=== PATIENT | female | born 1940 | race Caucasian/White ===

== ENCOUNTER 2022-06-14 12:30 | Outpatient (RCR) | payer MEDICARE, BC, SELFPAY | END 2022-08-04 08:57 | disposition home or self-care (01) | PROVIDERS: PCP Family Medicine; Visit Provider Orthopaedic Surgery | DX: M25.562 Pain in left knee (principal); R26.9 Unspecified abnormalities of gait and mobility; Z96.652 Presence of left artificial knee joint; Z51.89 Encounter for other specified aftercare | CPT/HCPCS: 97110 ==

== ENCOUNTER 2023-11-13 13:38 | Outpatient (RCR) | payer MEDICARE, BC, SELFPAY ==
--- NOTE | 2023-11-13 15:30 | PT.OPEX ---
PT [place] [facility] Eval PT [facility] Outpatient Eval Start: 11/13/23 15:04 Freq: Status: Active Protocol: Document 11/13/23 15:04 CANDY (Rec: 11/13/23 15:20 CANDY [id number]) E-signed By Avril Sexton DPT Physical Therapy Outpatient Evaluation Insurance Information Recert Due Date 02/11/24 Insurance Name Medicare B,Blue Cross/[employer] [facility] Medical Diagnosis R OA, R knee pain R TKA 12/11/23 Treating Diagnosis R knee pain, impaired R knee ROM, impaired R knee/LE mobility/strength, limping/ antalgic gait Subjective Subjective Patient reports chronic R knee pain leading up to R TKA scheduled for 12/11/23. She had L TKA in March 2022. She reports having a FWW and cane from her prior surgery. She has not been using an AD. Denies any recent falls. She is independent, lives alone, driving. She has one stair to enter the home. Split entry with 7 stairs up to the main level with 2 railings. She has a tub shower. No shower chair, no commode for the toilet. Patient is planning to have someone stay with her for a couple of nights after surgery. She will then be on her own. States she has neighbors and family that can assist as needed. She reports doing well after her L TKA, similar plan. Date of Last Physician Visit 08/08/23 Date of Surgery (If applicable) 12/11/23 Current Work Status Retired Precautions Treatment Precautions/Contraindications hx L TKA March 2022 Assessment Assessment/Impression Patient is an 83 year old female with R knee pain, impaired R knee ROM, impaired R knee/LE mobility/strength, limping/antalgic gait. Patient seen in PT today for pre-op session to provide education/information on upcoming TKA surgery, safety information/HO, equipment instruction including use of FWW, and instruction in TKA exercises. Handouts issued for exercises, patient to perform them leading up to surgery. Reviewed PT/OT plan during hospital stay and patient is scheduled for OP PT post op. She had L TKA in March 2022. She reports having a FWW and cane from her prior surgery. She has not been using an AD. Denies any recent falls. She is independent, lives alone, driving. She has one stair to enter the home. Split entry with 7 stairs up to the main level with 2 railings. She has a tub shower. No shower chair, no commode for the toilet. Patient is planning to have someone stay with her for a couple of nights after surgery. She will then be on her own. States she has neighbors and family that can assist as needed. She reports doing well after her L TKA with a similar plan. Patient would benefit from skilled PT for pain/sx management, improved knee ROM, improved knee/LE mobility/strength, improved gait, balance/ proprioception training, and establishment of HEP. Plan of Care Rehabilitation Potential Good Physical Therapy Goals 1. Patient will be educated in TKA pre/post-op safety, mobility, and exercises with HOs provided within one visit with patient returning to PT for post op treatment after R TKA surgery on 12/11/22. PT goals will be updated to TKA rehab goals when patient returns post op. Coordination/Communication With Referral Source Treatment Plan/Direct Interventions Gait Training,Manual Therapy, Therapeutic Exercises Frequency/Duration 2x/week Patient Will Be Discharged From Therapy Completion of LTG(s),Skills Plateau,Independent w/HEP, Independently Progressing Evaluation Billing Untimed Code Treatment Minutes 35 Complexity Moderate Certification Information Initial Certification Date 11/13/23 Ending Certification Date 02/11/24 Provider Signature Shows Agreement With POC & Medical Necessity Physician Signature & Date Requested Please Sign/Date Here Physician Comment/Change : Physician NPI Number #
== END 2024-02-22 11:21 | disposition home or self-care (01) ==
PROVIDERS: PCP Family Medicine; Visit Provider Orthopaedic Surgery
DX: M17.11 Unilateral primary osteoarthritis, right knee (principal); Z96.651 Presence of right artificial knee joint; M25.561 Pain in right knee; Z74.09 Other reduced mobility; R26.89 Other abnormalities of gait and mobility; R53.1 Weakness; Z51.89 Encounter for other specified aftercare
CPT/HCPCS: 97162

== ENCOUNTER 2024-08-12 09:41 | Day surgery (SDC) | payer MEDICARE, BC, SELFPAY ==
[2024-08-12] VITALS (23 sets, daily range): BP systolic 101–188; BP diastolic 60–129; PULSE 44–78; RESP 14–16; TEMP 35.3–36.6; O2SAT 92–100; BMI 23.1
[2024-08-12] MEDS: OXYCODONE (CR) 10 MG TAB.ER.12H PO (10:45)
[2024-08-12] MEDS: ACETAMINOPHEN 500 MG TABLET 1000 MG PO ×3 (10:45→22:40)
[2024-08-12] MEDS: LACTATED RINGERS 1000 ML 1,000 ML 100 ML IV (11:03)
[2024-08-12] MEDS: SODIUM CHLORIDE 0.9 % (FLUSH) 10 ML SYRINGE IVF (11:04)
[2024-08-12] MEDS: fentaNYL 100 MCG/2 ML inj IVP (11:29)
[2024-08-12] MEDS: MIDAZOLAM HCL 1 MG/ML inj IVP (11:29)
--- NOTE | 2024-08-12 11:47 | W.ANESCHARGE ---
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
--- NOTE | 2024-08-12 11:48 | P.NB_ITS ---
Nerve Block Nerve Block Time Seen by Provider: 11:34 Date Seen: 08/12/24 Type of block requested by surgeon for post-operative analgesia: adductor canal Side: right Time out performed: Yes Verification of patient name: Yes Verification of date of : Yes Site marking: site marked Name of person performing procedure: Mandeep Continuous monitoring Was continuous monitoring of O2 sat, B/P, alarm security or surveillance monitor, recorded every 15 minutes?: Yes Procedure Checklist: sterile prep, needles and gloves Ultrasound guided. Images saved: Yes Medications given in 5ml increments after negative aspiration: Ropivicaine %: 0.5 mL: 20 Needle gauge: 20 Decadron (mg): 10 Precedex (mcg): 25 Patient tolerated procedure well: Yes Additional comments: Needle noted adjacent to nerve Block Charges Block Charge (with Pro Fee): Femoral Nerve Use of Ultrasound Machine for Block: Yes- US Guidance/pain block
--- NOTE | 2024-08-12 11:48 | SUR.PREOP ---
TIME?OUT:?1129 PT/RN/MDA?VERIFICATION?OF?SURGICAL?SITE,?PROCEDURE,?AND?CONSENT OBTAINED?PRIOR?TO?INVASIVE?PROCEDURE.
--- NOTE | 2024-08-12 11:48 | W.PM.NB ---
Nerve Block Nerve Block Time Seen by Provider: 11:34 Date Seen: 08/12/24 Type of block requested by surgeon for post-operative analgesia: geniculars Side: right Time out performed: Yes Verification of patient name: Yes Verification of date of : Yes Site marking: site marked Name of person performing procedure: Mandeep Continuous monitoring Was continuous monitoring of O2 sat, B/P, monitoring manager, recorded every 15 minutes?: Yes Procedure Checklist: sterile prep, needles and gloves Medications given in 5ml increments after negative aspiration: Ropivicaine %: 0.5 mL: 9 Needle gauge: 25 Patient tolerated procedure well: Yes Block Charges Block Charge (with Pro Fee): Genicular Nerve Block Use of Ultrasound Machine for Block: No
[2024-08-12] MEDS: CEFAZOLIN 2 GM INJ IVP (12:05)
[2024-08-12] MEDS: TRANEXAMIC ACID 100 MG/ML INJ 1000 MG IV (12:09)
--- NOTE | 2024-08-12 13:23 | CRLHL7_ITS ---
For Patients: As a result of the Cures Act, medical imaging exams and procedure reports are released immediately into your electronic medical record. You may view this report before your referring provider. If you have questions, please contact your health care provider. Indication: Right knee arthroplasty Technique: Right knee 2 view Findings: Hardware from a right knee arthroplasty is in satisfactory position. Bone alignment is normal. No sign of acute fracture. There are postoperative changes in the soft tissues. Dictated by Zainab Rico MD @ 08/15/2024 11:51:31 AM (Electronically Signed)
--- NOTE | 2024-08-12 13:33 | PM.ORPRC ---
Procedure Note Date of procedure: 08/12/24 Procedure: PREOPERATIVE DIAGNOSIS: Right knee osteoarthritis POSTOPERATIVE DIAGNOSIS: Right knee osteoarthritis NAME OF OPERATION: Right total knee arthroplasty SURGEON: Tone Henry MD KILN PACKER: JOANNE Tarango ANESTHESIA: Spinal ESTIMATED BLOOD LOSS: 0 mL COMPLICATIONS: None SPECIMENS: None DRAINS: None PREOPERATIVE ANTIBIOTICS: Ancef 1 g IMPLANTS: 1. J&J Attune #4 posterior stabilized femur 2. #3 fixed-bearing tibia 3. #4 posterior stabilized, 7 mm fixed-bearing polyethylene 4. 35 patella INDICATIONS: The patient is a 84-year-old with a longstanding history of severe, unrelenting right knee pain secondary to end-stage (grade IV) right knee osteoarthritis. Despite appropriate nonoperative management, including activity modification, anti-inflammatories, [id number]-rgyvhtr pain medication, bracing, physical therapy, and injections they continue to have pain and disability. Operative intervention was offered. The risks, benefits and expected outcomes were discussed in detail. These included but were not limited to: Infection, bleeding, injury to blood vessel or nerve, venous thromboembolism. All questions were answered to their satisfaction. Use of an educational program assistant was necessary throughout the case for patient positioning and safety, soft tissue retraction, and closure. PROCEDURE: Spinal anesthesia was administered. The patient was placed supine on the operating table. The educational program assistant made sure the patient was positioned appropriately. The lower extremity was prepped and draped in the usual sterile fashion. The limb was exsanguinated with the Jono bandage. The pneumatic tourniquet was inflated to 300 mmHg. A standard anterior incision was made with the knee in flexion. Subcutaneous dissection was sharply taken through fascial layer #1. Full-thickness medial and lateral flaps were elevated. The educational program assistant retracted the soft tissues and protected them throughout the case. A standard subvastus approach was made. The patella was subluxed. The infrapatellar fat pad was debrided. The menisci and cruciate ligaments were sharply d?brided. Marginal osteophytes were d?brided with the rongeur. The drill was used to penetrate the femoral canal. The canal was aspirated and irrigated with pulse lavage. The intramedullary femoral guide was placed for a 5-degree valgus cut, removing 10 mm off the distal femur. The saw was used to make the cut. Whitesides line and the trans epicondylar axis were marked. The femoral sizing guide was pinned onto the distal femur. Three degrees of external rotation nicely parallels the transepicondylar axis. Pins were placed for posterior referencing. The four-in-one cutting guide was pinned onto the distal femur. The anterior, posterior, and chamfer cuts were made. The educational program assistant protected the collateral ligaments. The box cutting guide was pinned. The box cuts were made. The boxed trial was placed and was an excellent fit. Drill holes for the lugs were made. Attention was then turned to the proximal tibia. The extramedullary tibial guide was placed for a neutral varus/valgus cut with 5 degrees of posterior slope, removing 2 mm based off the medial tibial surface. The educational program assistant protected the collateral ligaments and the neurovascular bundle. The saw was used to make the cut. Trial components were placed. The knee was nicely balanced in both flexion and extension. The trial components were removed. The tray was placed in appropriate rotation, parallel to our tibial cutting pins. It was pinned by the educational program assistant and the drill and the punch were used. The tray was removed. The punch was used again. We placed a bone plug in the femoral canal. Attention was then turned to the patella. [place] patellar thickness was 18.5 mm. The lobster claw resection guide was used with the 7.5 mm deb. The saw was used to make the cut. Drill holes were made by the educational program assistant. The trial was placed and was an excellent fit. Cancellous surfaces were irrigated with pulse lavage and thoroughly dried by the educational program assistant. We cemented the tibial component, then the femoral component. We impacted the 7 mm polyethylene onto the tibial tray. The knee was brought into full extension. We then cemented the patellar component. Excessive cement was removed. The cement was allowed to harden. The knee was taken through a range of motion and was found to be nicely balanced in both flexion and extension. The patella tracks centrally. The educational program assistant did a three minute dilute Betadine solution soak. The educational program assistant irrigated the wound with 3 liters of normal saline via pulse lavage. The educational program assistant reapproximated the extensor mechanism with #1 Vicryl in an interrupted [id number] fashion. The educational program assistant then ran the extensor mechanism with a #1 PDO Stratafix. The educational program assistant closed the subcutaneous tissues with a 3-0 Stratafix and the skin with a running 3-0 Stratafix in a subcuticular fashion. Glue was used to seal the skin. The educational program assistant placed a dry dressing. Sponge and needle counts were correct x2. The patient tolerated the procedure well. There were no apparent complications. They were carefully transferred to the hospital bed and taken to the postanesthesia care unit in satisfactory condition. PLAN: The patient will be mobilized with physical therapy. The patient's usual dose of Coumadin can be restarted. They will be discharged to home once medically appropriate.
--- NOTE | 2024-08-12 13:58 | W.ANESCHARGE ---
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
[2024-08-12] MEDS: HYDROmorphone 0.5 mg/0.5 ml inj IVP (14:57)
[2024-08-12] MEDS: WARFARIN 2 MG TABLET PO (17:02)
--- NOTE | 2024-08-12 18:05 | P.IMCN_ITS ---
Date of Consult Patient: Other Consult date: 08/12/24 Requesting Physician: Orthopedics Primary Care Provider: Pretty Cantu MD Consult Narrative Reason for consult: HTN, afib Narrative: Jami Lr is a 84 year old female with HTN, afib, bilateral carotid artery disease who underwent an elective RTKA by Dr. Herny today for end-stage osteoarthritis. She got oxycodone about 15 minutes before I came in. Toward the end of our conversation she was mildly confused and thought her PCP was through [facility], even though she is at [facility]. Review of Systems Status of ROS: Reports: 6 or more systems reviewed and unremarkable except as noted in History and below [facility] Medical History (Updated 08/12/24 @ 19:59 by Leila Anne MD) Hyponatremia ?E87.1 - Hypo-osmolality and hyponatremia (ICD-10) Uncomplicated alcohol dependence ?F10.20 - Alcohol dependence, uncomplicated (ICD-10) Chronic anticoagulation ?Z79.01 - detention (current) use of anticoagulants (ICD-10) Atrial fibrillation ?I48.91 - Unspecified atrial fibrillation (ICD-10) Bilateral carotid artery disease ?I77.9 - Disorder of arteries and arterioles, unspecified (ICD-10) Trigeminal neuralgia of left side of face ?G50.0 - Trigeminal neuralgia (ICD-10) Vitamin D deficiency ?E55.9 - Vitamin D deficiency, unspecified (ICD-10) Labyrinthitis ?H83.09 - Labyrinthitis, unspecified ear (ICD-10) Fibrocystic breast disease ?N60.19 - Diffuse cystic mastopathy of unspecified breast (ICD-10) Lichen sclerosus et atrophicus ?L90.0 - Lichen sclerosus et atrophicus (ICD-10) Insomnia ?G47.00 - Insomnia, unspecified (ICD-10) CAD (coronary artery disease) ?I25.10 - Atherosclerotic heart disease of [place] coronary artery without angina pectoris (ICD-10) GERD (gastroesophageal reflux disease) ?K21.9 - Gastro-esophageal reflux disease without esophagitis (ICD-10) Hypertension ?I10 - Essential (primary) hypertension (ICD-10) Arthritis ?M19.90 - Unspecified osteoarthritis, unspecified site (ICD-10) Surgical History (Updated 08/12/24 @ 18:15 by Leila Anne MD) H/O wisdom tooth extraction ?K08.409 - Partial loss of teeth, unspecified cause, unspecified class (ICD- 10) History of cataract extraction with lens replacement H/O exploratory laparotomy ?Z98.890 - Other specified postprocedural states (ICD-10) Hx of vein stripping ?Z98.890 - Other specified postprocedural states (ICD-10) History of appendectomy ?Z90.49 - Acquired absence of other specified parts of digestive tract (ICD- 10) Status post left knee replacement (04/21/22) ?Z96.652 - Presence of left artificial knee joint (ICD-10) Family History (Updated 08/12/24 @ 18:12 by Leila Anne MD) Mother Stroke Arthritis Father Coronary artery disease Sister Stroke Sister Stroke Aortic aneurysm Social History (Updated 08/12/24 @ 19:58 by Leila Anne MD) Narrative: . Lives alone. She has a sister who lives 6 blocks away and can help drive her places. Denies tobacco use. Quit alcohol altogether when diagnosed with afib. What is your current living situation?: I presently have a place to live Problems where you live: no known problems Problems where you live details: steps In the past 12 months, utilities in danger of being shut off: no In past 12 months, lack of transportation kept you from medical appts, meetings, work, or getting things needed for daily living: no In the past 12 mos, have been you worried that your food would run out before you had money to buy more?: never true In the past 12 mos, the food you bought just didn't last and you didn't have money to buy more?: never true Smoking Status: Never smoker Do you use any of these nicotine containing products: None Second hand tobacco smoke exposure: No How often do you have a drink containing alcohol: never AUDIT-C Alcohol total score: 0 Non-prescribed substance use: denies use Caffeine: Yes (5-7) How often does anyone, including family, friends and others, physically hurt you : never How often does anyone, including family, friends and others, insult or talk down to you: never How often does anyone, including family, friends and others, threaten you with harm: never How often does anyone, including family, friends and others, scream or curse at you: never service: No Meds Home Medications and Allergies Home Medications ?Medication ?Instructions ?Recorded ?Confirmed ?Type cholecalciferol (vitamin D3) 125 5,000 unit PO 2XW 05/31/22 08/12/24 History mcg (5,000 unit) tablet fluorometholone 0.1 % eye 1 drp ophthalmic (eye) TID PRN 05/31/22 08/08/24 History drops,suspension losartan 100 mg tablet 100 mg PO HS 05/31/22 08/12/24 History meclizine 25 mg tablet 25 mg PO TID PRN 05/31/22 08/12/24 History montelukast 10 mg tablet 10 mg PO HS 05/31/22 08/12/24 History omeprazole 20 mg capsule,delayed 20 mg PO DAILY 05/31/22 08/12/24 History release terazosin 1 mg capsule 1 mg PO HS 05/31/22 08/12/24 History triamcinolone acetonide 0.1 % 1 applic topical BID PRN 05/31/22 08/08/24 History topical ointment nifedipine 30 mg tablet,extended 30 mg PO DAILY 04/25/23 08/08/24 History release 24 hr warfarin 1 mg tablet 2 mg PO DAILY 07/07/24 08/12/24 History hydroxyzine HCl 25 mg tablet 25 mg PO Q6H PRN 08/08/24 08/12/24 History loratadine 10 mg tablet 10 mg PO HS 08/08/24 08/12/24 History (Allerclear) metoprolol tartrate 75 mg tablet 75 mg PO BID 08/12/24 08/12/24 History Allergies Allergy/AdvReac Type Severity Reaction Status Date / Time carbamazepine [From Tegretol] AdvReac Verified 08/12/24 10:13 celecoxib [From Celebrex] AdvReac Verified 08/12/24 13:30 hydrochlorothiazide AdvReac Verified 08/12/24 10:13 tizanidine [From Zanaflex] AdvReac Verified 08/12/24 10:13 zolpidem [From Ambien] AdvReac Verified 08/12/24 10:13 Exam Narrative: Exam Narrative: General: No acute distress. Awake alert oriented x3. HEENT: Normocephalic atraumatic, pupils equally round and reactive to light and accommodation. Oropharynx clear. Mucous membranes are moist. No cervical lym phadenopathy, thyromegaly or carotid bruits. No JVD. Cardiovascular: Irregularly irregular. No murmurs, gallops, or rubs. Chest: No increased work of breathing. Clear to auscultation bilaterally. No crackles or wheezes. Abdomen: Bowel sounds present. Soft, nondistended, nontender. No hepatosplenomegaly or masses. Extremities: Right knee bandage is clean, dry, and intact. No edema, no cyan osis or clubbing. Skin: No jaundice, no pallor, no rashes. Const: Vital Signs, click to edit/add: Vital Signs - 24 hr 08/12/24 10:10 08/12/24 11:38 08/12/24 11:45 Temperature 97.8 F Pulse Rate 64 44 L 44 L Respiratory Rate 16 16 16 Blood Pressure 185/115 H 159/70 H 150/91 H Pulse Oximetry 95 99 [facility] Nasal Cannula Nasal Cannula Oxygen Flow Rate 2 2 08/12/24 13:55 08/12/24 14:00 08/12/24 14:05 Temperature 97.1 F L Pulse Rate 51 L 58 L 56 L Respiratory Rate 14 14 14 Blood Pressure 124/87 124/87 146/95 H Pulse Oximetry 94 97 94 [facility] Room Air Room Air Oxygen Flow Rate 08/12/24 14:10 08/12/24 14:15 08/12/24 14:20 Temperature Pulse Rate 55 L 56 L 57 L Respiratory Rate 16 16 16 Blood Pressure 164/81 H 141/87 H 175/60 H Pulse Oximetry 95 95 96 [facility] Room Air Room Air Oxygen Flow Rate 08/12/24 14:25 08/12/24 14:34 08/12/24 14:50 Temperature 96.9 F L 95.6 F L 95.7 F L Pulse Rate 56 L 58 L 56 L Respiratory Rate 16 16 16 Blood Pressure 162/87 H 140/81 H 158/99 H Pulse Oximetry 96 96 97 [facility] Room Air Room Air Oxygen Flow Rate 08/12/24 15:00 08/12/24 15:00 08/12/24 15:01 Temperature 95.8 F L Pulse Rate 56 L Respiratory Rate 16 16 16 Blood Pressure 167/85 H Pulse Oximetry 93 95 Oxygen Delivery Me thod Room Air Room Air Oxygen Flow Rate 08/12/24 15:15 08/12/24 15:30 08/12/24 16:00 Temperature 96.1 F L 96.6 F L Pulse Rate 56 L 77 78 Respiratory Rate 16 16 16 Blood Pressure 181/77 H 177/129 H 188/96 H Pulse Oximetry 92 92 98 Oxygen Delivery Me thod Room Air Room Air Room Air Oxygen Flow Rate 08/12/24 16:30 Temperature Pulse Rate 72 Respiratory Rate 16 Blood Pressure 101/69 Pulse Oximetry 98 Oxygen Delivery Me thod Room Air Oxygen Flow Rate Assessment and Plan Assessment and plan (1) Status post left knee replacement: Problem comment: - 08/12/24 Dr. Henry - routine postop cares - VTE prophylaxis: SCDs and warfarin as below for AFib Status: Acute (2) Osteoarthritis of right knee: Problem comment: End-stage right knee osteoarthritis Status: Chronic (3) Atrial fibrillation: Problem comment: Rate control with metoprolol, stroke prophylaxis with warfarin, goal INR 2-3 Status: Chronic (4) Chronic anticoagulation: Problem comment: Warfarin for afib, goal INR 2-3, this has already been reordered by Ortho Status: Chronic (5) Hypertension: Problem comment: BP borderline low today. Will hold nifedipine and losartan. Continue metoprolol for rate control in the setting of AFib Status: Chronic
[2024-08-12] MEDS: OXYCODONE 5 MG TABLET PO (18:54)
[2024-08-12] MEDS: CEFAZOLIN 1 GM in 0.9 % SODIUM CHLORIDE Mini-bag 100 ML IVPB (18:54)
[2024-08-12] MEDS: METOPROLOL TARTRATE 50 MG TABLET 75 MG PO (21:32)
[2024-08-12] MEDS: SENNOSIDES 1 TAB TABLET 2 TAB PO (21:32)
[2024-08-12] MEDS: MONTELUKAST 10 MG TABLET PO (21:32)
[2024-08-12] MEDS: LORATADINE 10 MG TABLET PO (21:32)
--- NOTE | 2024-08-12 23:33 | PC.NURSE ---
Shift Note: Pt friendly and cooperative. VS WNL and LS COA. Afebrile. Surgical dressing to right knee C,D,&I with active ice in place. Non pitting edema noted around surgical site. Pedal pulses intact with cap refill less than 3 seconds. Pt advanced to regular diet without difficulty and moves well with assist x1 with walker and GB. Pt did exhibit increased confusion this evening, having trouble using the call light to turn off her light and/or channel surf. Needed occasional reorientation. Pt made no attempts to self transfer and has been continent of urine.
[2024-08-13] MEDS: CEFAZOLIN 1 GM in 0.9 % SODIUM CHLORIDE Mini-bag 100 ML IVPB (02:20)
[2024-08-13] MEDS: OXYCODONE 5 MG TABLET PO ×2 (02:30→08:31)
[2024-08-13] MEDS: ACETAMINOPHEN 500 MG TABLET 1000 MG PO (05:07)
--- NOTE | 2024-08-13 06:39 | PC.NURSE ---
[id number] Pt slept in recliner during night, Ice to R knee, Dressing C/D/I. ambulating to br with walker, GB, SBA, tolerating activity VERY well. pain controlled with scheduled and prn pain medication.
[2024-08-13 06:56] LABS: Hematocrit 30.6 % (33.0-51.0); Immature Granulocytes Abs Auto 0.02 K/uL (0.00-0.30); Immature Granulocytes Pct Auto 0.2 %; Mean Corpuscular HGB Conc 33 gm/dL (32-36); Mean Corpuscular Hemoglobin 31 pg (26-34); Mean Corpuscular Volume 95 fL (80-100); Monocytes Percent Auto 11.4 % (0.0-11.0); Neutrophils Percent Auto 79.4 % (42.0-72.0); Platelet Count* 158 K/uL (140-440); RDW Coefficient of Variation % 12.5 % (11.5-15.5); Red Blood Count 3.23 m/uL (4.00-5.20); White Blood Count* 9.44 K/uL (4.50-11.00)
[2024-08-13 07:00] VITALS: PULSE 74; RESP 16; O2SAT 97
[2024-08-13 07:00] LABS: Slide Review Reflex No
[2024-08-13 07:12] LABS: Sodium* 133 mmol/L (135-149)
[2024-08-13 07:14] LABS: INR 1.02 (0.91-1.10)
[2024-08-13 07:16] LABS: Blood Urea Nitrogen* 14 mg/dL (7-30); Creatinine* 0.6 mg/dL (0.5-1.5); Est. Creatinine Clearance* 32.17; Estimated Glomerular Filt Rate 89 ml/min
[2024-08-13] MEDS: SENNOSIDES 1 TAB TABLET 2 TAB PO (08:31)
[2024-08-13] MEDS: OMEPRAZOLE 20 MG CAPSULE DR PO (08:31)
[2024-08-13] MEDS: METOPROLOL TARTRATE 50 MG TABLET 75 MG PO (08:31)
--- NOTE | 2024-08-13 08:52 | PM.ORPN ---
Subjective Subjective Time Seen by Provider: 07:50 Date Seen: 08/13/24 Principal diagnosis: Status post right knee replacement Interval history: Antonia is comfortable. She will discharge to home today. She has been moving well to the restroom, bed and chair. Ortho Exam Narrative Exam Narrative: Alert and oriented x3. Patient is in no acute distress. Converses without labored breathing. Hearing is grossly intact. Ambulates with a walker. Examination of right knee shows dressing is intact. No erythema or warmth or sign of infection. Subcutaneous blood collection is noted. She is easily able to straight leg raise. CMS intact right lower extremity. Calf is soft and nontender. No pretibial edema. Const Vital Signs, click to edit/add: Vital Signs - 24 hr 08/12/24 10:10 08/12/24 11:38 08/12/24 11:45 Temperature 97.8 F Pulse Rate 64 44 L 44 L Pulse Rate [Pulse Oximeter] Respiratory Rate 16 16 16 Blood Pressure 185/115 H 159/70 H 150/91 H Blood Pressure [Right Arm] Pulse Oximetry 95 99 100 Oxygen Delivery Method Room Air Nasal Cannula Nasal Cannula Oxygen Flow Rate 2 2 08/12/24 13:55 08/12/24 14:00 08/12/24 14:05 Temperature 97.1 F L Pulse Rate 51 L 58 L 56 L Pulse Rate [Pulse Oximeter] Respiratory Rate 14 14 14 Blood Pressure 124/87 124/87 146/95 H Blood Pressure [Right Arm] Pulse Oximetry 94 97 94 Oxygen Delivery Method Room Air Room Air Room Air Oxygen Flow Rate 08/12/24 14:10 08/12/24 14:15 08/12/24 14:20 Temperature Pulse Rate 55 L 56 L 57 L Pulse Rate [Pulse Oximeter] Respiratory Rate 16 16 16 Blood Pressure 164/81 H 141/87 H 175/60 H Blood Pressure [Right Arm] Pulse Oximetry 95 95 96 Oxygen Delivery Method Room Air Room Air Room Air Oxygen Flow Rate 08/12/24 14:25 08/12/24 14:34 08/12/24 14:50 Temperature 96.9 F L 95.6 F L 95.7 F L Pulse Rate 56 L 58 L 56 L Pulse Rate [Pulse Oximeter] Respiratory Rate 16 16 16 Blood Pressure 162/87 H 140/81 H 158/99 H Blood Pressure [Right Arm] Pulse Oximetry 96 96 97 Oxygen Delivery Method Room Air Room Air Room Air Oxygen Flow Rate 08/12/24 15:00 08/12/24 15:00 08/12/24 15:01 Temperature 95.8 F L Pulse Rate 56 L Pulse Rate [Pulse Oximeter] Respiratory Rate 16 16 16 Blood Pressure 167/85 H Blood Pressure [Right Arm] Pulse Oximetry 93 95 Oxygen Delivery Method Room Air Room Air Oxygen Flow Rate 08/12/24 15:15 08/12/24 15:30 08/12/24 16:00 Temperature 96.1 F L 96.6 F L Pulse Rate 56 L 77 78 Pulse Rate [Pulse Oximeter] Respiratory Rate 16 16 16 Blood Pressure 181/77 H 177/129 H 188/96 H Blood Pressure [Right Arm] Pulse Oximetry 92 92 98 Oxygen Delivery Method Room Air Room Air Room Air Oxygen Flow Rate 08/12/24 16:30 08/12/24 17:30 08/12/24 18:30 Temperature Pulse Rate 72 77 77 Pulse Rate [Pulse Oximeter] Respiratory Rate 16 16 16 Blood Pressure 101/69 107/83 119/77 Blood Pressure [Right Arm] Pulse Oximetry 98 98 98 Oxygen Delivery Method Room Air Room Air Room Air Oxygen Flow Rate 08/12/24 19:30 08/12/24 20:30 08/12/24 23:00 Temperature Pulse Rate 77 70 Pulse Rate [Pulse Oximeter] Respiratory Rate 16 16 16 Blood Pressure 107/83 119/77 Blood Pressure [Right Arm] Pulse Oximetry 98 98 97 Oxygen Delivery Method Room Air Room Air Room Air Oxygen Flow Rate 0 08/12/24 23:00 Temperature 97.1 F L Pulse Rate Pulse Rate [Pulse Oximeter] 61 Respiratory Rate 16 Blood Pressure Blood Pressure [Right Arm] 172/93 H Pulse Oximetry 97 Oxygen Delivery Method Room Air Oxygen Flow Rate Assessment and Plan Assessment and plan (1) Status post left knee replacement: Problem details: - 08/12/24 Dr. Henry - routine postop cares - VTE prophylaxis: SCDs and warfarin as below for AFib Status: Acute Assessment and Plan: Patient has INR check set up with her family provider postoperatively. Plan for discharge is today to home if they meet discharge criteria. DVT prophylaxis includes warfarin, Compression stockings as needed for swelling. Frequent ambulation, every hour throughout the day. Remove dressing in 1 week. Observe wound and phone Orthopedics with any questions or concerns Return to clinic in 1 week for a wound check Return to clinic in 6 weeks with surgeon Minimize narcotic use. Wean off and discontinue soon as possible. Activities as tolerated. No strenuous activity. Outpatient physical therapy as scheduled. Ice and elevate the operative extremity. No restriction on ice.
[2024-08-13 09:00] VITALS: BP 152/71; PULSE 74; RESP 20; TEMP 36.6; O2SAT 97
--- NOTE | 2024-08-13 11:12 | PC.SOCIAL ---
Discharge planning: transfer and line up worker met with pt today in her room. Pt's sister was also present. Pt's son, daughter and sister will be taking turns staying with her at home making sure she stays on top of taking her pain medication and providing assistance as needed. Pt starts outpatient physical therapy tomorrow. Social work to follow-up as needed.
== END 2024-08-13 11:35 | disposition home or self-care (01) ==
LOC: OR 09:44 → MEDSURG 09:47
PROVIDERS: PCP Student in an Organized Health Care Education/Training Program; Visit Provider Orthopaedic Surgery
PROC: (CPT 27447; principal; 2024-08-12 12:00)
DX: M17.11 Unilateral primary osteoarthritis, right knee (principal); G89.18 Other acute postprocedural pain; I10 Essential (primary) hypertension; Z79.01 Long term (current) use of anticoagulants; I77.9 Disorder of arteries and arterioles, unspecified; K21.9 Gastro-esophageal reflux disease without esophagitis; I48.20 Chronic atrial fibrillation, unspecified
CPT/HCPCS: 27447; 01402; 36415; 64447; 64454; 73560; 76942; 82565; 84132; 84295; 84520; 85025; 85610; 97110; 97116; 97161; 97165; 97530; 97535; 99100; A9270; C1776; J0690; J1100; J1170; J2250; J2405; J2704; J2795; J3010; J7120

== ENCOUNTER 2024-09-07 09:39 | Emergency (ER) | payer MEDICARE, BC, SELFPAY ==
[2024-09-07 09:44] VITALS: BP 163/75; PULSE 58; RESP 18; TEMP 36.3; O2SAT 97; BMI 21.5
--- NOTE | 2024-09-07 10:08 | ED.GENADULT ---
HPI - General Adult General Chief complaint: Unspecified Complaint, Adult Stated complaint: Facial pain Time Seen by Provider: 09/07/24 09:53 History of Present Illness HPI narrative: This 84-year-old female comes in with recurrence of trigeminal neuralgia. She has had this in the past and it has flared up in the past few days. She reports brief sharp pains that occur in her left face. She is taking baclofen but is not on carbamazepine. She does not report any other symptoms that are new. She does not have any neurologic deficits. Related Data Home Medications ?Medication ?Instructions ?Recorded ?Confirmed cholecalciferol (vitamin D3) 125 5,000 unit PO 2XW 05/31/22 08/20/24 mcg (5,000 unit) tablet fluorometholone 0.1 % eye 1 drp ophthalmic (eye) TID PRN 05/31/22 08/20/24 drops,suspension losartan 100 mg tablet 100 mg PO HS 05/31/22 08/20/24 meclizine 25 mg tablet 25 mg PO TID PRN 05/31/22 08/20/24 montelukast 10 mg tablet 10 mg PO HS 05/31/22 08/20/24 omeprazole 20 mg capsule,delayed 20 mg PO DAILY 05/31/22 08/20/24 release terazosin 1 mg capsule 1 mg PO HS 05/31/22 08/20/24 triamcinolone acetonide 0.1 % 1 applic topical BID PRN 05/31/22 08/20/24 topical ointment nifedipine 30 mg tablet,extended 30 mg PO DAILY 04/25/23 08/20/24 release 24 hr warfarin 1 mg tablet 2 mg PO DAILY 07/07/24 08/20/24 hydroxyzine HCl 25 mg tablet 25 mg PO Q6H PRN 08/08/24 08/20/24 loratadine 10 mg tablet 10 mg PO HS 08/08/24 08[facility]20[facility] metoprolol tartrate 75 mg tablet 75 mg PO BID 08/12/24 08/20/24 Previous Rx's ?Medication ?Instructions ?Recorded acetaminophen 500 mg capsule 500 - 1,000 mg (1 - 2 x 500 mg) PO 08/12/24 Q6H PRN pain #100 caps oxycodone 5 mg tablet 2.5 - 5 mg (0.5 - 1 x 5 mg) PO 08/12/24 Q4-6H PRN Pain #42 tabs sennosides 8.6 mg tablet (Senna 17.2 mg (2 x 8.6 mg) PO BID PRN 08/12/24 Lax) constipation #100 tabs carbamazepine 100 mg 100 mg PO BID #60 caps 09/07/24 capsule,extended release [id number] ondansetron HCl 4 mg tablet 4 mg PO Q6H #20 tabs 09/07/24 Allergies Allergy/AdvReac Type Severity Reaction Status Date / Time carbamazepine [From Tegretol] AdvReac Verified 08/20/24 09:24 celecoxib [From Celebrex] AdvReac Verified 08/20/24 09:24 hydrochlorothiazide AdvReac Verified 08/20/24 09:24 tizanidine [From Zanaflex] AdvReac Verified 08/20/24 09:24 zolpidem [From Ambien] AdvReac Verified 08/20/24 09:24 Review of Systems Status of ROS: Reports: 10 or more systems reviewed and unremarkable except as noted in History and below Narrative: Constitutional: No fevers, no weight gain or loss. Eyes: No discharge. No vision changes. HENT: No congestion, no sore throat, no ear pain. Cardiovascular: No chest pain, no palpitations. Respiratory: No shortness of breath, no wheezes, no cough. Gastrointestinal: No abdominal pain, no vomiting, no diarrhea. Genitourinary: No dysuria, no hematuria. Musculoskeletal: Normal range of motion. Skin: No rashes, no pruritis. Neurological: No dizziness, weakness, speech change. Brief episodes of facial pain on the left side as described above. Endo/Heme/Allergies: No bruising or bleeding. No polydipsia. Pysch: no suicidality, no anxiety, no insomnia. All other systems reviewed and are negative. [facility] Medical History (Updated 09/07/24 @ 10:13 by Juan Edwards MD) Hyponatremia ?E87.1 - Hypo-osmolality and hyponatremia (ICD-10) Uncomplicated alcohol dependence ?F10.20 - Alcohol dependence, uncomplicated (ICD-10) Chronic anticoagulation ?Z79.01 - jail (current) use of anticoagulants (ICD-10) Atrial fibrillation ?I48.91 - Unspecified atrial fibrillation (ICD-10) Bilateral carotid artery disease ?I77.9 - Disorder of arteries and arterioles, unspecified (ICD-10) Trigeminal neuralgia of left side of face ?G50.0 - Trigeminal neuralgia (ICD-10) Vitamin D deficiency ?E55.9 - Vitamin D deficiency, unspecified (ICD-10) Labyrinthitis ?H83.09 - Labyrinthitis, unspecified ear (ICD-10) Fibrocystic breast disease ?N60.19 - Diffuse cystic mastopathy of unspecified breast (ICD-10) Lichen sclerosus et atrophicus ?L90.0 - Lichen sclerosus et atrophicus (ICD-10) Insomnia ?G47.00 - Insomnia, unspecified (ICD-10) CAD (coronary artery disease) ?I25.10 - Atherosclerotic heart disease of [place] coronary artery without angina pectoris (ICD-10) GERD (gastroesophageal reflux disease) ?K21.9 - Gastro-esophageal reflux disease without esophagitis (ICD-10) Hypertension ?I10 - Essential (primary) hypertension (ICD-10) Arthritis ?M19.90 - Unspecified osteoarthritis, unspecified site (ICD-10) Surgical History (Updated 08/20/24 @ 10:17 by Wendy Alexis PA-C) History of arthroplasty of right knee (08/12/24) ?Z96.651 - Presence of right artificial knee joint (ICD-10) H/O wisdom tooth extraction ?K08.409 - Partial loss of teeth, unspecified cause, unspecified class (ICD-10) History of cataract extraction with lens replacement H/O exploratory laparotomy ?Z98.890 - Other specified postprocedural states (ICD-10) Hx of vein stripping ?Z98.890 - Other specified postprocedural states (ICD-10) History of appendectomy ?Z90.49 - Acquired absence of other specified parts of digestive tract (ICD-10) Status post left knee replacement (04/21/22) ?Z96.652 - Presence of left artificial knee joint (ICD-10) Family History (Updated 08/12/24 @ 18:12 by Leila Anne MD) Mother Stroke Arthritis Father Coronary artery disease Sister Stroke Sister Stroke Aortic aneurysm Social History (Updated 08/12/24 @ 19:58 by Leila Anne MD) Narrative: . Lives alone. She has a sister who lives 6 blocks away and can help drive her places. Denies tobacco use. Quit alcohol altogether when diagnosed with afib. What is your current living situation?: I presently have a place to live Problems where you live: no known problems Problems where you live details: steps In the past 12 months, utilities in danger of being shut off: no In past 12 months, lack of transportation kept you from medical appts, meetings, work, or getting things needed for daily living: no In the past 12 mos, have been you worried that your food would run out before you had money to buy more?: never true In the past 12 mos, the food you bought just didn't last and you didn't have money to buy more?: never true Smoking Status: Never smoker Do you use any of these nicotine containing products: None Second hand tobacco smoke exposure: No How often do you have a drink containing alcohol: never AUDIT-C Alcohol total score: 0 Non-prescribed substance use: denies use Caffeine: Yes (5-7) How often does anyone, including family, friends and others, physically hurt you: never How often does anyone, including family, friends and others, insult or talk down to you: never How often does anyone, including family, friends and others, threaten you with harm: never How often does anyone, including family, friends and others, scream or curse at you: never service: No Exam Narrative: Exam Narrative: Constitutional: Well-developed, well-nourished, no acute distress. HEENT: Normocephalic, atraumatic. Neck: Normal range of motion. Nontender. Supple. Heart: Regular. No murmurs. Normal rate. Intact distal pulses. Lungs: Clear to auscultation. No chest discomfort. No wheezes, rhonchi, or rales. Abdomen: Normal bowel sounds. Nontender. No rebound tenderness. Genitalia: Deferred. Back: No midline tenderness. Normal range of motion. Extremities: Normal range of motion. No injury. Skin: Intact. No rash. Warm. No erythema or pallor. Neurologic: No weakness. Alert and oriented. No facial asymmetry. Brief episodes of facial pain and wincing. Psychiatric: No suicidality. No anxiety or depression. No insomnia. Nursing notes and vitals signs are reviewed. Const: Vital Signs, click to edit/add: Vital Signs - 24 hr 09/07/24 09:44 Temperature 97.3 F L Pulse Rate [Right Pulse Oximeter] 58 L Respiratory Rate 18 Blood Pressure [Ri ght Upper Arm] 163/75 H Pulse Oximetry 97 Oxygen Delivery Me thod Room Air Course Vital Signs Vital signs: Initial Vital Signs Temperature 97.3 F L 09/07/24 09:44 Temperature Source Temporal Artery Scan 09/07/24 09:44 Pulse Rate 58 L 09/07/24 09:44 Respiratory Rate 18 09/07/24 09:44 Blood Pressure 163/75 H 09/07/24 09:44 Blood Pressure Mean 104 09/07/24 09:44 Blood Pressure Position Sitting 09/07/24 09:44 Pulse Oximetry 97 09/07/24 09:44 Oxygen Delivery Method Room Air 09/07/24 09:44 Vital Signs Temperature 97.3 F L 09/07/24 09:44 Pulse Rate 58 L 09/07/24 09:44 Respiratory Rate 18 09/07/24 09:44 Blood Pressure 163/75 H 09/07/24 09:44 Pulse Oximetry 97 09/07/24 09:44 Oxygen Delivery Method Room Air 09/07/24 09:44 Temperature 97.3 F L 09/07/24 09:44 Pulse Rate 58 L 09/07/24 09:44 Respiratory Rate 18 09/07/24 09:44 Blood Pressure 163/75 H 09/07/24 09:44 Pulse Oximetry 97 09/07/24 09:44 Oxygen Delivery Method Room Air 09/07/24 09:44 Medical Decision Making [facility] Narrative Medical decision making narrative: This patient has symptoms typical of trigeminal neuralgia. I explained that this is typically a clinical diagnosis. She is not yet displaying any symptoms of central process such as a stroke. The patient has Tegretol listed as an allergy but it is because of nausea symptoms that occur when taking it. She really would benefit from this medicine so I recommended taking a nausea medicine prior to taking Tegretol. She received prescriptions for both of these medicines with instructions to increase the dosing if symptoms are not improved enough. Discharge Plan Discharge Clinical Impression: Left-sided trigeminal neuralgia Patient Disposition: Home w/ Parent or Adult Condition: Unchanged Additional Instructions: Take medications as prescribed. Okay to increase Tegretol from 100 mg twice daily to 200 mg twice daily if not improving with the initial dose. Follow up with MD return if worsening. Prescriptions: New carbamazepine 100 mg capsule, ER multiphase 12 hr 100 mg PO BID Qty: 60 2RF ondansetron HCl 4 mg tablet 4 mg PO Q6H Qty: 20 1RF No Action nifedipine 30 mg tablet extended release 24hr 30 mg PO DAILY cholecalciferol (vitamin D3) 125 mcg (5,000 unit) tablet 5,000 unit PO 2XW Rx Instructions: TAKES ON SAT and SUN montelukast 10 mg tablet 10 mg PO HS fluorometholone 0.1 % drops,suspension 1 drp ophthalmic (eye) TID PRN triamcinolone acetonide 0.1 % ointment 1 applic topical BID PRN meclizine 25 mg tablet 25 mg PO TID PRN terazosin 1 mg capsule 1 mg PO HS omeprazole 20 mg capsule,delayed release(DR/EC) 20 mg PO DAILY losartan 100 mg tablet 100 mg PO HS warfarin 1 mg tablet 2 mg PO DAILY hydroxyzine HCl 25 mg tablet 25 mg PO Q6H PRN loratadine [Allerclear] 10 mg tablet 10 mg PO HS sennosides [Senna Lax] 8.6 mg Tablet 17.2 mg PO BID PRN (Reason: constipation) Qty: 100 0RF acetaminophen 500 mg capsule 500 - 1,000 mg PO Q6H MDD 4000mg per day PRN (Reason: pain) Qty: 100 0RF oxycodone 5 mg Tablet 2.5 - 5 mg PO Q4-6H MDD 6 tabs per day PRN (Reason: Pain) Qty: 42 0RF Rx Instructions: Minimize. Discontinue as soon as possible metoprolol tartrate 75 mg tablet 75 mg PO BID Follow Up/Referrals: Pretty Cantu MD [Primary Care Provider] - Stand Alone Forms: [employer] Info Instructions
--- OUTSIDE RECORDS SUMMARY | 2024-09-07 10:27 | XMS_ITS | Clinical Summary ---
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 Name Role Phone Pcp, No Primary Care Provider Unavailabl e Allergies Active Allergy Reactions Criticality Noted Date Comments Zolpidem Other - Describe In Comment Field 09/09/2018 Bad dreams Celecoxib GI Upset Medium 09/11/2022 Gabapentin Hives 09/05/2024 Hydrochlorothiazide Other - Describe In Comment Field 04/10/2017 Hyponatremia Carbamazepine Other - Describe In Comment Field 04/10/2017 Nausea and vomiting Lightheaded Tizanidine Diarrhea Medium 06/15/2020 Medications Medication Sig Dispensed Refills Start Date End Date Status cholecalciferol (VITAMIN D3) 5,000 unit capsuleIndications: Vitamin D deficiency Take 1 capsule twice a week 0 1 Active acetaminophen (TYLENOL EXTRA STRGTH) 500 mg tabletIndications:P rimary osteoarthritis of left knee Take 2 Tablets (1,000 mg) by mouth 3 times daily if needed for Pain. Max acetaminophen dose: 4000mg in 24 hrs. 0 1 Active fluorometholone (FML) 0.1 % ophthalmic suspension APPLY 1 DROP TO BOTH EYES UP TO THREE TIMES DAILY NEEDED 1 Active loratadine (CLARITIN) 10 mg tabletIndications:C hronic non-seasonal allergic rhinitis Take 1 Tablet (10 mg) by mouth once daily if needed for Allergy Symptoms. 0 2 Active hydrOXYzine HCL (ATARAX) 25 mg tabletIndications:I nsomnia, idiopathic Take 1 Tablet (25 mg) by mouth every 6 hours if needed (insomnia). 30 Tablet 3 3 Active losartan (COZAAR) 100 mg tabletIndications:E ssential hypertension Take 1 Tablet (100 mg) by mouth once daily. 90 Tablet 3 3 Active meclizine (ANTIVERT) 25 mg tabletIndications:L abyrinthitis, unspecified laterality Take 1 Tablet (25 mg) by mouth 3 times daily if needed for Vertigo. You may only need one dose at bedtime. 30 Tablet 3 3 Active montelukast (Singulair) 10 mg tabletIndications:C hronic non-seasonal allergic rhinitis Take 1 Tablet (10 mg) by mouth at bedtime. 90 Tablet 3 3 Active NIFEdipine (PROCARDIA XL) 30 mg extended-release tabletIndications:E ssential hypertension Take 1 Tablet (30 mg) by mouth once daily before a meal. 90 Tablet 3 3 Active omeprazole (PRILOSEC) 20 mg Delayed-Release capsuleIndications: Gastroesophageal reflux disease with esophagitis without hemorrhage Take 1 Capsule (20 mg) by mouth once daily before a meal. 90 Capsule 3 3 Active terazosin (HYTRIN) 1 mg capsuleIndications: Essential hypertension Take 1 Capsule (1 mg) by mouth at bedtime. 90 Capsule 3 3 Active triamcinolone 0.1 % ointmentIndications :Lichen sclerosus et atrophicus APPLY TOPICALLY TO AFFECTED AREA(S) TWO TIMES A DAY NEEDED. For lichen sclerosus 80 g 4 Active metoprolol tartrate 75 mg tabletIndications:E ssential hypertension Take 1 Tablet (75 mg) by mouth two times daily. 180 Tablet 3 4 Active sertraline (ZOLOFT) 25 mg tabletIndications:G AD (generalized anxiety disorder) Take 1 Tablet (25 mg) by mouth once daily in the morning. 4 Active warfarin (COUMADIN) 1 mg tabletIndications:N ew onset atrial fibrillation (HC),Anticoagulatio n monitoring, INR range 2-3 Take by mouth 1 mg (1 mg x 1) every Mon, Wed, Fri; 2 mg (1 mg x 2) all other days in the evening OR as directed 4 Active baclofen 10 mg tabletIndications:T rigeminal neuralgia of left side of face Take 1 Tablet (10 mg) by mouth 3 times daily if needed (left facial pain). 30 Tablet 4 Active warfarin (COUMADIN) 1 mg tabletIndications:N ew onset atrial fibrillation (HC),Anticoagulatio n monitoring, INR range 2-3 Take by mouth 08/07: Hold; 08/08: Hold; 08/09: Hold; 08/10: Hold; 08/11: Hold; Otherwise 2 mg every day in the evening OR as directed 4 08/20/20 24 Discontinue d(Other - add note to specify (E-cancel not sent)) gabapentin (NEURONTIN) 300 mg capsuleIndications: Trigeminal neuralgia of left side of face Take 1 Capsule (300 mg) by mouth once daily in the morning. 4 09/05/20 24 Discontinue d(*Allergic /Adverse Rxn/Side Effects) warfarin (COUMADIN) 1 mg tabletIndications:N ew onset atrial fibrillation (HC),Anticoagulatio n monitoring, INR range 2-3 Take by mouth 2 mg (1 mg x 2) every day in the evening OR as directed 4 08/20/20 24 Discontinue d(Reorder (E-cancel not sent)) warfarin (COUMADIN) 1 mg tabletIndications:N ew onset atrial fibrillation (HC),Anticoagulatio n monitoring, INR range 2-3 Take by mouth 2 mg (1 mg x 2) every day in the evening OR as directed 185 Tablet 4 08/27/20 24 Discontinue d(Reorder (E-cancel not sent)) warfarin (COUMADIN) 1 mg tabletIndications:N ew onset atrial fibrillation (HC),Anticoagulatio n monitoring, INR range 2-3 Take by mouth 102: Hold; 3: Hold; Otherwise 1 mg every Mon, Wed, Fri; 2 mg all other days in the evening OR as directed 4 09/03/20 24 Discontinue d(Reorder (E-cancel not sent)) Active Problems Problem Noted Date Diagnosed Date Anticoagulation monitoring, INR range 2-3 2023 New onset atrial fibrillation 11/30/2023 Uncomplicated alcohol dependence 03/20/2023 Assessment & Plan (03/20/2023 12:53 PM CDT): Chart update only. SEA Arthur .................... 03/20/2023 12:53 PM Bilateral carotid artery disease 01/07/2018 Overview (01/07/2018): R is moderate L is mild to moderate Per Life Line Screening Family history of aortic aneurysm 01/07/2018 Overview (01/07/2018): Sister Trigeminal neuralgia of left side of face 2016 Vitamin D deficiency 10/24/2016 ALLERGIC RHINITIS CAUSE UNSPECIFIED 10/24/2016 Labyrinthitis 10/29/2015 Fibrocystic breast disease 03/23/2012 Overview (03/23/2012): Needs clinical breast exam q6 months Hyponatremia 11/02/2011 Lichen sclerosus et atrophicus 06/10/2009 Insomnia, unspecified 04/15/2009 Symptomatic menopausal or female climacteric sta laurence 10/29/2007 Essential hypertension Gastroesophageal reflux disease with esophagitis Chronic non-seasonal allergic rhinitis Resolved Problems Problem Noted Date Diagnosed Date Resolved Date Environmental allergies 10/29/201509/27 Encounters Date Type Department Care Team Description 09/05/2024 2:45 PM CDT Office Visit [facility] [address] [place] [address] Jaelyn Owen MD Jaw Pain (November when it started went away and came back recently, dentist says nothing to do with teeth) 09/05/2024 Travel 09/05/2024 Nurse Triage [facility] [address] [place] [address] Pcp, No Jaw Pain 09/03/2024 Anticoagulation (warfarin) [facility] [address] [place] [address] 1, [facility] Anticoagulation 09/02/2024 8:00 AM CDT Orders Only [facility] [address] [place] [address] Lab, [facility] 09/02/2024 Travel 08/28/2024 Telephone [facility] [address] [place] [address] Liv Glass PA Anticoagulation (Chart Update lab orders/Quest ) 08/27/2024 Telephone [facility] [address] [place] [address] Liv Glass PA Anticoagulation 08/27/2024 Telephone [facility] [address] [place] [address] Liv Glass PA Anticoagulation (Dosing plan/recheck ) 08/27/2024 Anticoagulation (warfarin) [facility] [address] [place] [address] 1, [facility] Anticoagulation 08/26/2024 10:15 AM CDT Orders Only [facility] [address] [place] [address] Lab[facility] 08/26/2024 Travel 08/20/2024 Telephone [facility] [address] [place] [address] Liv Glass PA Anticoagulation 08/20/2024 Refill [facility] [address] [place] [address] Liv Glass PA Refill Request (Warfarin) 08/20/2024 Anticoagulation (warfarin) [facility] [address] [place] [address] 1, [facility] Anticoagulation 08/19/2024 Telephone [facility] [address] [place] [address] Liv Glass PA Anticoagulation 08/19/2024 Orders Only [facility] [address] [place] [address] Liv Glass PA <No scans attached> 08/19/2024 Travel 08/15/2024 Telephone [facility] [address] [place] [address] Liv Glass PA Anticoagulation (AC ORDER) 08/14/2024 1:15 PM CDT Office Visit [facility] [address] [place] [address] Jolene Dooley PA Dizziness 08/14/2024 Travel 08/14/2024 Nurse Triage [facility] [address] [place] [address] Pcp, No Jaw Pain 08/13/2024 Telephone [facility] [address] [place] [address] Liv Glass PA Anticoagulation (Question) 08/12/2024 Orders Only [facility] Scanner 1 scan: (1-Ord) RABIA KNEE RT 2VW, 08/12/2024 08/06/2024 Telephone [facility] [address] [place] [address] Pretty Cantu MD Questions 07/29/2024 Orders Only [address] [address] Pretty Cantu MD 1 scan: (1-Ord) [facility]-EKG-8.30.24 07/29/2024 Anticoagulation (warfarin) [facility] [address] [place] [address] 1, [facility] Anticoagulation (Chart Update) 07/25/2024 1:25 PM CDT Office Visit [facility] [address] [place] [address] Pretty Cantu MD Preoperative Exam (KNEE REPLACEMENT - 08/12/2024 DR. CANAS - [facility]); Concerns (neuralgia - concerns this will effect surgery. ) 07/25/2024 Telephone [facility] [address] [place] [address] Pretty Cantu MD Medication Management 07/25/2024 Travel 07/23/2024 Telephone [facility] [address] [place] [address] 1, [facility] Anticoagulation (Hold/Bridge) 07/22/2024 1:30 PM CDT Orders Only [facility] [address] [address] Lab, [facility] 07/22/2024 Anticoagulation (warfarin) [facility] [address] [place] [address] 1, [facility] Anticoagulation 07/22/2024 Travel 06/26/2024 Telephone [facility] [address] [facility] [address] Liv Glass PA accident 06/24/2024 8:45 AM CDT Orders Only [facility] [address] [facility] [address] Lab[facility] 06/24/2024 Anticoagulation (warfarin) [facility] [address] [place] [address] 1, [facility] Anticoagulation 06/24/2024 Travel from Last 3 Months Immunizations Name Administration Dates Next Due AMB Influenza, IIV3 (Age >=3 years)(Flu Clinic Only) 09/15/2008 COVID-19 vaccine (Pfizer-Bio NTech 30mcg/0.3mL) 12YO+ MAYRA-SUCROSE PF, MDV 04/03/2022 COVID-19 vaccine (Pfizer-Bio NTech 30mcg/0.3mL) PF, MDV 09/29/2021,02/08/2021,01/18/2021 Influenza RIV4 (Age 18+ Year s) PRESERV FREE 09/22/2019 Influenza, High-dose Inactivated 10/02/2018,1107/2017,09/24/2016 Influenza, High-dose Quadriv alent Inactivated 09/24/2023,09/30/2022,10/03/2021,2019 Influenza, Inactivated AIIV4 (Age 65+ Years) Preserv Free 10/03/2021,09/04/2020 Influenza, Inactivated IIV3 (Age 65+ Years) Preserv Free 09/22/2019,09/26/2018 Pneumococcal Poly,23-Valent (Pneumovax) 10/04/2017,09/29/1999 Pneumococcal conj 13-Valent (Prevnar 13) 10/08/2014 Td (Age >=7 Years) 04/27/2006 Tdap 08/02/2023,06/07/2012 Zoster (Shingrix-RZV, recombinant) 09/15/2019, Zoster (Zostavax-ZVL, live) 10/08/2012 Family History Medical History Relation Name Comments Heart Disease Father d 73 sudden de ath Stroke Mother d 76 yo Aortic aneurysm Sister Cancer-breast No Family History Relation Name Status Comments Daughter Alive Father Mother Sister Son 1 Alive Son 2 Alive Social History Tobacco Use Types Packs/Day Years Used Date Smoking Tobacco: Never Smokeless Tobacco: Never Tobacco Cessation:Counseling Given: Yes Alcohol Use Standard Drinks/Week Comments Not Currently 0 (1 standard drink = 0.6 oz pur e alcohol) PHQ-2 Answer Date Recorded PHQ-2 TOTAL SCORE 0 03/02/2023 Social Connections Answer Date Recorded Frequency of Communication with Friends and Fami ly 0 12/13/2023 Financial Resource Strain Answer Date R ecorded Difficulty of Paying Living Expenses 3 12/13/2023 Difficulty of Paying Living Expenses Not on file 12/13/2023 Food Insecurity Answer Date Recorded Worried About Running Out of Food in the Last Ye ar 1 12/13/2023 Transportation Needs Answer Date Record ed Lack of Transportation (Medical) 1 12/13/2023 Housing Stability Answer Date Recorded Unable to Pay for Housing in the Last Year 1 12/13/2023 Sex and Gender Information Value Date Recorded Sex Assigned at Not on file Gender Identity Not on file Sexual Orientation Not on file Obstetrics History Para Term AB IAB SAB Ectopic Multiple Livin g Live Births 3 3 3 0 0 0 0 0 3 Date Outcome GA Total Labor Labor/2nd/3rd Weight Sex Type Anes PTL Yarelis A1 A5 Name Clin Term Term Term Last Filed Vital Signs Vital Sign Reading Time Taken Comments Blood Pressure 161/75 09/05/2024 2:53 PM CDT Pulse 65 09/05/2024 2:53 PM CDT Temperature 36.6 ??C (97.8 ??F) 11/30/2023 1:12 PM CS T Respiratory Rate 16 11/30/2023 1:12 PM 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 [address] Lab[facility] Maintenance Due Date Last Done Comments RSV vaccine for adults or (1 - 1-dose 75+ series) 2016 Depression screening for age 12+ 03/02/2024 03/02/2023, 10/13/2021, 10/12/2021, Additional history exists Medicare Wellness for age 65+ 03/02/2024, 10/12/2021, 04/16/2019 COVID-19 vaccine series ( season) 2024 09/24/2023, 09/30/2022, 04/03/2022, Additional history exists Influenza for age 65+ 07/27/2024 09/24/2023 , 09/30/2022, 10/03/2021, Additional history exists BMI (ht and wt on same day) for age 18+ 03/18/2025 03/18/2024, 03/02/2023, 04/03/2022, Additional history exists Tetanus booster 08/02/2033 08/02/2023, 05/26, 04/27/2006 DEXA/DXA scan for age 65+ Completed 05/30/2009 Pneumococcal series for age 65+ Completed 10/04/2017, 10/08/2014, 09/29/1999 Zoster (shingles) series for age 50+ Completed 09/15/2019, 07/07/2019, 10/08/2012 Tdap Completed 08/02/2023, 06/07/2012 Procedures Procedure Name Priority Date/Time Associated Diagnosis Comments PROTIME-INR Routine 09/02/2024 8:40 AM CDT New onset atrial fibrillation (HC) Anticoagulation monitoring, INR range 2-3 PROTIME-INR Routine 08/26/2024 10:28 AM CDT New onset atrial fibrillation (HC) Anticoagulation monitoring, INR range 2-3 PROTIME-INR Routine 08/19/2024 10:29 AM CDT New onset atrial fibrillation (HC) Anticoagulation monitoring, INR range 2-3 SCAN-RADIOLOGY REPORT 08/12/2024 12:00 AM CDT EKG 12 LEAD Routine 07/29/2024 10:37 AM CDT Pre-op exam [place] READING EKG - NO CHARGE, COMP ONLY Routine 07/29/2024 10:36 AM CDT Pre-op exam HEMOGLOBIN Routine 07/25/2024 2:33 PM CDT Pre-op exam BASIC METABOLIC PANEL Routine 07/25/2024 2:33 PM CDT Pre-op exam PROTIME-INR STAT 07/22/2024 1:30 PM CDT New onset atrial fibrillation (HC) Anticoagulation monitoring, INR range 2-3 PROTIME-INR STAT 06/24/2024 8:52 AM CDT New onset atrial fibrillation (HC) Anticoagulation monitoring, INR range 2-3 from Last 3 Months Results * (ABNORMAL) PROTIME-INR (09/02/2024 8:40 AM CDT) Only the most recent of5 resultswithin the time period is included. INR 2.0(H) [email or web address] [email or web address] Preciado Comment: Reference Range ? 0.9-1.1 Moderate-intensity Warfarin Therapy 2.0-3.0 Higher-intensity Warfarin Therapy ?? 3.0-4.0 PT 21.1(H) 9.0 - 11.5 sec [email or web address] Preciado Comment: For additional information, please refer to http://education.Healthcare IT/faq/NVW810 (This link is being provided for informational/ educational purposes only.) Blood BLOOD SPECIMEN / Unknown 09/02/2024 8:40 AM CDT 09/02/2024 8:40 AM CDT Liv OSEI HEMATOLOGY [employer] [facility] [address] [place] [address], [place] [phone] [employer] [facility] [address] [place] [address] * SCAN-RADIOLOGY REPORT (08/12/2024 12:00 AM CDT) Anatomical Region Laterality Modality Other Scanner OTHER * EKG 12 LEAD (07/29/2024 10:37 AM CDT) Pretty Cantu MD EKG ORD * [place] READING EKG - NO CHARGE, COMP ONLY (07/29/2024 10:36 AM CDT) Pretty Cantu MD PB - PROVI TIFFANI READINGS * (ABNORMAL) HEMOGLOBIN (07/25/2024 2:33 PM CDT) Pathologist [facility] HEMOGLOBIN 11.3(L) 12.0 - 16.0 g/dL 07/25/2024 2:37 PM CDT [facility] MCV 94 80 - 100 fL 07/25/2024 2:37 PM CDT [facility] Blood BLOOD SPECIMEN / Unknown Venipuncture / Unknown 07/25/2024 2:33 PM CDT 07/25/2024 2:33 PM CDT Pretty Cantu MD HEMATOLOGY Performing Organization Address City/[facility]/ZIP Co de Phone Number [facility] [address] [place] [address], [place] [phone] * (ABNORMAL) BASIC METABOLIC PANEL (07/25/2024 2:33 PM CDT) SODIUM 134(L) 136 - 145 mmol/L 07/25/2024 10:57 PM CDT [facility] POTASSIUM 3.8 3.5 - 5.1 mmol/L 07/25/2024 10:57 PM CDT [facility] CHLORIDE 97(L) 98 - 107 mmol/L 07/25/2024 10:57 PM CDT [facility] CO2,TOTAL 25 22 - 29 mmol/L 07/25/2024 10:57 PM CDT [facility] ANION GAP 12 5 - 18 07/25/2024 10:57 PM CDT [facility] GLUCOSE 108(H) 70 - 99 mg/dL 07/25/2024 10:57 PM CDT [facility] CALCIUM 9.2 8.8 - 10.2 mg/dL 07/25/2024 10:57 PM T [facility] BUN 11 8 - 23 mg/dL 07/25/2024 10:57 PM T [facility] CREATININE 0.70 0.50 - 0.90 mg/dL 07/25/2024 10:57 PM T [facility] BUN/CREAT RATIO 16 10 - 20 10:57 PM T [facility] eGFR 86(L) >90 mL/min/1.7 3m2 07/25/2024 10:57 PM T [facility] Comment:As of 2022, eG FR is calculated by the CKD-EPI creatinine equation without race adjustment. ??eGFR can be influenced by muscle mass, exercise, and diet. ??The reported eGFR is an estimation only and is only applicable if the renal function is stable. Blood BLOOD SPECIMEN / Unknown Venipuncture / Unknown 07/25/2024 2:33 PM CDT 07/25/2024 2:33 PM CDT Pretty Cantu MD [facility]Y [facility] [address] [place] [address], from Last 3 Months Care Teams Upholstery Tech Relationship Specialty Start Date End Date Pcp, No . PCP - General 07/25/24
== END 2024-09-07 10:28 | disposition home or self-care (01) ==
LOC: ED 10:25
PROVIDERS: Emergency Provider Emergency Medicine Emergency Medical Services; PCP Student in an Organized Health Care Education/Training Program
DX: G50.0 Trigeminal neuralgia (principal)
CPT/HCPCS: 99283; 99284

== ENCOUNTER 2024-09-21 16:34 | Emergency (ER) | payer MEDICARE, BC, SELFPAY ==
--- NOTE | 2024-09-21 16:38 | ED_ITS ---
HPI - General Adult General Date Seen: 09/21/24 Chief complaint: Constipation Stated complaint: constipation Time Seen by Provider: 09/21/24 16:38 History of Present Illness HPI narrative: 84-year-old female with a past medical history previous alcohol dependence, HTN, atrial fibrillation (on warfarin) coronary disease, carotid artery dz, GERD, appy, recent right TKA, presenting to the ER today with constipation and inability to pass a bowel movement now for 7 days. She has a history of occasional constipation in the past but does not typically have to take a lot of stool softeners or laxatives. She had been on is a scant amount of oxycodone for a couple of weeks after her knee surgery but has now been more than 10 or 12 days since taking any of that. She has not had a good bowel movement since a week ago, last Sunday. She has been feeling increasing discomfort as if she has a stool ball in her rectum but has been unable to pass it for couple of days. She took 3 of her ?physic? laxatives yesterday. Today she is passing a lot of liquidy stool, to the point where she is incontinent of liquid per rectum, but has not been able to pass any solid stool and still feels a uncomfortable ball there. She is not having any anterior abdominal pain. No vomiting. No fever. She has been trying to drink plenty of fluids because she knows that she needs to stay hydrated because she has a history of AFib. Related Data Home Medications ?Medication ?Instructions ?Recorded ?Confirmed cholecalciferol (vitamin D3) 125 5,000 unit PO 2XW 05/31/22 09/16/24 mcg (5,000 unit) tablet fluorometholone 0.1 % eye 1 drp ophthalmic (eye) TID PRN 05/31/22 09/16/24 drops,suspension losartan 100 mg tablet 100 mg PO HS 05/31/22 09/16/24 meclizine 25 mg tablet 25 mg PO TID PRN 05/31/22 09/16/24 montelukast 10 mg tablet 10 mg PO HS 05/31/22 09/16/24 omeprazole 20 mg capsule,delayed 20 mg PO DAILY 05/31/22 09/16/24 release terazosin 1 mg capsule 1 mg PO HS 05/31/22 09/16/24 triamcinolone acetonide 0.1 % 1 applic topical BID PRN 05/31/22 09/16/24 topical ointment nifedipine 30 mg tablet,extended 30 mg PO DAILY 04/25/23 09/16/24 release 24 hr warfarin 1 mg tablet 2 mg PO DAILY 07/07/24 09/16/24 hydroxyzine HCl 25 mg tablet 25 mg PO Q6H PRN 08/08/24 09/16/24 loratadine 10 mg tablet 10 mg PO HS 08/08/24 09/16/24 (Allerclear) metoprolol tartrate 75 mg tablet 75 mg PO BID 08/12/24 09/16/24 Previous Rx's ?Medication ?Instructions ?Recorded acetaminophen 500 mg capsule 500 - 1,000 mg (1 - 2 x 500 mg) PO 08/12/24 Q6H PRN pain #100 caps oxycodone 5 mg tablet 2.5 - 5 mg (0.5 - 1 x 5 mg) PO 08/12/24 Q4-6H PRN Pain #42 tabs sennosides 8.6 mg tablet (Senna 17.2 mg (2 x 8.6 mg) PO BID PRN 08/12/24 Lax) constipation #100 tabs carbamazepine 100 mg 100 mg PO BID #60 caps 09/07/24 capsule,extended release [id number] ondansetron HCl 4 mg tablet 4 mg PO Q6H #20 tabs 09/07/24 Allergies Allergy/AdvReac Type Severity Reaction Status Date / Time carbamazepine (From Tegretol) AdvReac Verified 09/16/24 14:41 celecoxib (From Celebrex) AdvReac Verified 09/16/24 14:41 hydrochlorothiazide AdvReac Verified 09/16/24 14:41 tizanidine (From Zanaflex) AdvReac Verified 09/16/24 14:41 zolpidem (From Ambien) AdvReac Verified 09/16/24 14:41 [facility] Medical History (Updated 09/21/24 @ 18:30 by Jason Curran MD) Hyponatremia ?E87.1 - Hypo-osmolality and hyponatremia (ICD-10) Uncomplicated alcohol dependence ?F10.20 - Alcohol dependence, uncomplicated (ICD-10) Chronic anticoagulation ?Z79.01 - assisted (current) use of anticoagulants (ICD-10) Atrial fibrillation ?I48.91 - Unspecified atrial fibrillation (ICD-10) Bilateral carotid artery disease ?I77.9 - Disorder of arteries and arterioles, unspecified (ICD-10) Trigeminal neuralgia of left side of face ?G50.0 - Trigeminal neuralgia (ICD-10) Vitamin D deficiency ?E55.9 - Vitamin D deficiency, unspecified (ICD-10) Labyrinthitis ?H83.09 - Labyrinthitis, unspecified ear (ICD-10) Fibrocystic breast disease ?N60.19 - Diffuse cystic mastopathy of unspecified breast (ICD-10) Lichen sclerosus et atrophicus ?L90.0 - Lichen sclerosus et atrophicus (ICD-10) Insomnia ?G47.00 - Insomnia, unspecified (ICD-10) CAD (coronary artery disease) ?I25.10 - Atherosclerotic heart disease of [place] coronary artery without angina pectoris (ICD-10) GERD (gastroesophageal reflux disease) ?K21.9 - Gastro-esophageal reflux disease without esophagitis (ICD-10) Hypertension ?I10 - Essential (primary) hypertension (ICD-10) Arthritis ?M19.90 - Unspecified osteoarthritis, unspecified site (ICD-10) Surgical History (Updated 09/18/24 @ 12:39 by Peggy Carlson) History of arthroplasty of right knee (08/12/24) ?Z96.651 - Presence of right artificial knee joint (ICD-10) H/O wisdom tooth extraction ?K08.409 - Partial loss of teeth, unspecified cause, unspecified class (ICD- 10) History of cataract extraction with lens replacement H/O exploratory laparotomy ?Z98.890 - Other specified postprocedural states (ICD-10) Hx of vein stripping ?Z98.890 - Other specified postprocedural states (ICD-10) History of appendectomy ?Z90.49 - Acquired absence of other specified parts of digestive tract (ICD- 10) Status post left knee replacement (04/21/22) ?Z96.652 - Presence of left artificial knee joint (ICD-10) Family History Mother Stroke Arthritis Father Coronary artery disease Sister Stroke Sister Stroke Aortic aneurysm Social History (Reviewed 09/16/24 @ 14:52 by MICHELLE Mendez Narrative: . Lives alone. She has a sister who lives 6 blocks away and can help drive her places. Denies tobacco use. Quit alcohol altogether when diagnosed with afib. What is your current living situation?: I presently have a place to live Problems where you live: no known problems Problems where you live details: steps In the past 12 months, utilities in danger of being shut off: no In past 12 months, lack of transportation kept you from medical appts, meetings, work, or getting things needed for daily living: no In the past 12 mos, have been you worried that your food would run out before you had money to buy more?: never true In the past 12 mos, the food you bought just didn't last and you didn't have money to buy more?: never true Smoking Status: Never smoker Do you use any of these nicotine containing products: None Second hand tobacco smoke exposure: No How often do you have a drink containing alcohol: never AUDIT-C Alcohol total score: 0 Non-prescribed substance use: denies use Caffeine: Yes (5-7) How often does anyone, including family, friends and others, physically hurt you : never How often does anyone, including family, friends and others, insult or talk down to you: never How often does anyone, including family, friends and others, threaten you with harm: never How often does anyone, including family, friends and others, scream or curse at you: never service: No Exam Narrative: Exam Narrative: Constitutional: Appears well-developed and well-nourished. Alert. Conversant. Very polite. Non toxic. HENT: Head: Atraumatic. Nose: Nose normal. Mouth/Throat: Oral mucosa is clear and moist. no trismus. Eyes: Conjunctivae normal. EOM normal. Pupils equal, round, and reactive to light. No scleral icterus. Neck: Normal range of motion. Neck supple. No tracheal deviation present. Cardiovascular: Normal rate, regular rhythm. No gallop. No friction rub. No murmur heard. Symmetric radial artery pulses Pulmonary/Chest: Effort normal. No stridor. No respiratory distress. No wheezes. No rales. No rhonchi . Abdominal: Soft. Bowel sounds normal. No distension. No mass. No tenderness. No rebound. No guarding. 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 She does have irritation of the skin in her gluteal cleft which is apparently either due to the liquidy stool or possibly a a contact allergic reaction to her pad that she has been letting her underwear with. There is a 1 x 1 cm nontender fleshy lump in the right anterior portion of the rectum consistent with an external hemorrhoid. No sign of bleeding. Does not appear to be thrombosed. Normal rectal tone. There is of a large amount of firm stool present high in her rectal vault. I am able to reach it with my index finger tip but not able to hook it and pull it down. With rectal manipulation I am attempting to break up the stool. After this we ambulated the patient to the bathroom. She is feeling the stool coming down but is still not able to pass it. Musculoskeletal: RUE: Normal range of motion. No tenderness. No deformity LUE: Normal range of motion. No tenderness. No deformity RLE: Normal range of motion. No edema. No tenderness. No deformity. Her anterio r incision from her recent knee incision looks wonderful. LLE: Normal range of motion. No edema. No tenderness. No deformity Neurological: Alert and oriented to person, place, and time. Normal strength. CN II-VII intact. No sensory deficit. GCS eye subscore is 4. GCS verbal subscore is 5. GCS motor subscore is 6. Normal coordination Skin: Skin is warm and dry. No rash noted. No pallor. Normal capillary refill. Psychiatric: Normal mood. Normal affect. Const: Vital Signs, click to edit/add: Vital Signs - 24 hr 09/21/24 16:42 09/21/24 18:28 Temperature 98.4 F Pulse Rate [Pulse Oximeter] 77 Respiratory Rate 18 Blood Pressure [Ri ght Upper Arm] 124/104 H 157/78 H Pulse Oximetry 98 Oxygen Delivery Me thod Room Air Course Course ED Course: History and physical exam performed in ER bed 1. 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 After this the patient went to the bathroom. She was not really able to pass the stool. Nurse's administered a Fleet's enema and also an Enemeez to help anesthetize the paced and rectum. She was having some rectal discomfort from irritation from trying to strain as well as from a small hemorrhoid. With this she was able to pass small bowel movements but mostly liquid, only some stool. We observe the patient and gave her some time to rest. She was still only be able to pass small amounts of stool, mostly liquid from the enema. We administered 150 mL of magnesium citrate by mouth. At this point patient was requesting discharge home because her sister (who is her motor vehicle escort driver)cannot drive after dark. At this point she is not having any abdominal pain or distension, vomiting, fever or other symptoms of serious intra-abdominal infection or bowel obstruction. I think it is reasonable to try to manage her constipation with oral laxatives by mouth rather than additional enemas here in the ER. At this point no indication for hospitalization. Patient is in agreement and is eager to get discharged. Vital Signs Vital signs: Initial Vital Signs Temperature 98.4 F 09/21/24 16:42 Temperature Source Temporal Artery Scan 09/21/24 16:42 Pulse Rate 77 09/21/24 16:42 Pulse Rhythm Regular 09/21/24 16:42 Respiratory Rate 18 09/21/24 16:42 Blood Pressure 124/104 H 09/21/24 16:42 Blood Pressure Mean 110 H 09/21/24 16:42 Blood Pressure Position Sitting 09/21/24 16:42 Pulse Oximetry 98 09/21/24 16:42 Oxygen Delivery Method Room Air 09/21/24 16:42 Vital Signs Temperature 98.4 F 09/21/24 16:42 Pulse Rate 77 09/21/24 16:42 Respiratory Rate 18 09/21/24 16:42 Blood Pressure 124/104 H 09/21/24 16:42 Pulse Oximetry 98 09/21/24 16:42 Oxygen Delivery Method Room Air 09/21/24 16:42 Temperature 98.4 F 09/21/24 16:42 Pulse Rate 77 09/21/24 16:42 Respiratory Rate 18 09/21/24 16:42 Blood Pressure 157/78 H 09/21/24 18:28 Pulse Oximetry 98 09/21/24 16:42 Oxygen Delivery Method Room Air 09/21/24 16:42 Medications Administered Medications: Discontinued Medications Generic Name Dose Route Start Last Admin Trade Name Freq PRN Reason Stop Dose Admin Docusate Sodium/Benzocaine 5 ml 09/21/24 17:31 09/21/24 17:34 Docusate Sodium/Benzocaine 5 Ml Enema MN 09/21/24 17:32 5 ml ONCE ONE Administration Lidocaine HCl 6 ml 09/21/24 17:31 09/21/24 17:34 Lidocaine Hcl 2 % Jelly (Top) Sterile TOPICAL 09/21/24 17:32 6 ml ONCE ONE Administration Magnesium Citrate 150 ml 09/21/24 17:58 09/21/24 18:11 Magnesium Citrate 300 Ml Solution PO 09/21/24 17:59 150 ml ONCE ONE Administration Medical Decision Making MDM Narrative Medical decision making narrative: Presented to the Emergency Department with inability to pass any bowel movement for about 7 days. She had taken 3 doses of an [id number] laxative pill yesterday and today is only passing liquid stool but not able to pass any formed stool. She is feeling a fairly large stool ball in her rectal vault. She is not having any abdominal pain, nausea vomiting, fever. Differential here would include functional constipation. Also consider possible opiate induced constipation (but it has not had any oxycodone for 12 days). Also consider mechanical obstruction or other cause of her symptoms. Overall exam is reassuring and rectal exam does reveal reveal a fairly large stool burden right in the rectal vault. It is a bit too high for me to digitally disimpact her. We administered enemas and the patient is still not able to pass it. Suspect part of this problem is because she is having apprehensive about rectal pain when the stool comes. We also applied topical anesthetics to her rectum. No life threatening cause or need for emergent surgery or hospital admission is detected today. She is eager to discharge home since her sister is her motor vehicle escort driver and it is getting dark. Will have her take an additional dose of magnesium citrate at home this evening if she is not passing appropriate amounts of bowel movement. In the morning she will try a MiraLax prep. The patient was advised that if symptoms do not completely resolve within another 12-16 hours re- evaluation in the ED is indicated. The patient also understands that if they worsen, they should return to the ER right away. I discussed the uncertainty about the diagnosis and answered the patient's questions. Discharge Plan Discharge Clinical Impression: Acute constipation Instructions: Constipation (DC) Additional Instructions: As we discussed, you can take the following steps to manage your constipation. Drink the other half of the bottle of magnesium citrate (150 mL by mouth) in 1-2 hours if you are not having satisfactory bowel movements by then. If your still not having bowel movements, in the morning you can use MiraLax. MiraLax is available [id number]. Purchase one 8.3 ounce jar (238 g) of MiraLax Purchase 2 quarts (64 ounces) of Gatorade. Mix the entire jar MiraLax into the 64 oz of Gatorade. Stir until it is dissolved. If you like, you can put the Gatorade in the refrigerator to chill, but chilling it is not necessary Drink one 8 oz glass of this MiraLax mixture every 15-30 minutes until YOU ARE HAVING SATISFACTORY BOWEL MOVEMENTS. It is okay to stop after 4 glasses of liquid (total of 32 oz) and weight 1-2 hours and then resume the medication if needed. A bowel movement will typically occur within an hour after you drink the 1st glass. Bloating and abdominal cramping as well as nausea can occur from this medication. If you are not having substantial bowel movements and resolution of your symptoms, please return to the ER tomorrow by noon for re-evaluation. Prescriptions: No Action nifedipine 30 mg tablet extended release 24hr 30 mg PO DAILY cholecalciferol (vitamin D3) 125 mcg (5,000 unit) tablet 5,000 unit PO 2XW Rx Instructions: TAKES ON SAT and SUN montelukast 10 mg tablet 10 mg PO HS fluorometholone 0.1 % drops,suspension 1 drp ophthalmic (eye) TID PRN triamcinolone acetonide 0.1 % ointment 1 applic topical BID PRN meclizine 25 mg tablet 25 mg PO TID PRN terazosin 1 mg capsule 1 mg PO HS omeprazole 20 mg capsule,delayed release(DR/EC) 20 mg PO DAILY losartan 100 mg tablet 100 mg PO HS warfarin 1 mg tablet 2 mg PO DAILY hydroxyzine HCl 25 mg tablet 25 mg PO Q6H PRN loratadine [Allerclear] 10 mg tablet 10 mg PO HS sennosides [Senna Lax] 8.6 mg Tablet 17.2 mg PO BID PRN (Reason: constipation) Qty: 100 0RF acetaminophen 500 mg capsule 500 - 1,000 mg PO Q6H MDD 4000mg per day PRN (Reason: pain) Qty: 100 0RF oxycodone 5 mg Tablet 2.5 - 5 mg PO Q4-6H MDD 6 tabs per day PRN (Reason: Pain) Qty: 42 0RF Rx Instructions: Minimize. Discontinue as soon as possible metoprolol tartrate 75 mg tablet 75 mg PO BID carbamazepine 100 mg capsule, ER multiphase 12 hr 100 mg PO BID Qty: 60 2RF ondansetron HCl 4 mg tablet 4 mg PO Q6H Qty: 20 1RF Follow Up/Referrals: Pretty Cantu MD [Primary Care Provider] - Stand Alone Forms: Lol[employer] Info Instructions
[2024-09-21 16:42] VITALS: BP 124/104; PULSE 77; RESP 18; TEMP 36.9; O2SAT 98
[2024-09-21] MEDS: DOCUSATE SODIUM/BENZOCAINE 5 ML ENEMA PR (17:34)
[2024-09-21] MEDS: lidocaine HCL 2 % JELLY (TOP) STERILE 6 ML TOPICAL (17:34)
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
[2024-09-21] MEDS: MAGNESIUM CITRATE 300 ML SOLUTION 150 ML PO (18:11)
[2024-09-21 18:28] VITALS: BP 157/78
== END 2024-09-21 18:39 | disposition home or self-care (01) ==
PROVIDERS: Emergency Provider Emergency Medicine; PCP Student in an Organized Health Care Education/Training Program
DX: K59.00 Constipation, unspecified (principal)
CPT/HCPCS: 99283; A9270

== ENCOUNTER 2024-09-23 09:06 | Emergency (ER) | payer MEDICARE, BC, SELFPAY ==
[2024-09-23 09:18] VITALS: BP 144/76; PULSE 70; RESP 18; TEMP 36.6; O2SAT 96; BMI 21.5
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
--- NOTE | 2024-09-23 12:06 | ED_ITS ---
HPI - General Adult General Date Seen: 09/23/24 Chief complaint: Unspecified Complaint, Adult Stated complaint: continued constipation was here Sunday night Time Seen by Provider: 09/23/24 09:44 Source: patient, RN notes reviewed and old records reviewed Mode of arrival: ambulatory Limitations: no limitations History of Present Illness HPI narrative: Patient is an 84-year-old woman seen here 2 days ago with constipation and fecal impaction. She had an [place] and fleets here without significant solid stool output. She went home with magnesium citrate which she took and then she repor ts she did actually have a good solid bowel movement after that. She thought she was better, she says she felt fine yesterday but then this morning early in the morning she had diarrhea, she notes just very loose watery stools home twice today. She specifically denies bloody stools. She does continue to have irritation in the perianal area which she describes as ?chafing?. She denies any abdominal pain, nausea, vomiting. No recent antibiotics. No fevers. She had some liquid stool output when she had the fecal impaction, and she became concerned that that might be happening again, but she does note that she feels she completely emptied her bowels on Sunday evening. Related Data Home Medications ?Medication ?Instructions ?Recorded ?Confirmed cholecalciferol (vitamin D3) 125 5,000 unit PO 2XW 05/31/22 09/16/24 mcg (5,000 unit) tablet fluorometholone 0.1 % eye 1 drp ophthalmic (eye) TID PRN 05/31/22 09/16/24 drops,suspension losartan 100 mg tablet 100 mg PO HS 05/31/22 09/16/24 meclizine 25 mg tablet 25 mg PO TID PRN 05/31/22 09/16/24 montelukast 10 mg tablet 10 mg PO HS 05/31/22 09/16/24 omeprazole 20 mg capsule,delayed 20 mg PO DAILY 05/31/22 09/16/24 release terazosin 1 mg capsule 1 mg PO HS 05/31/22 09/16/24 triamcinolone acetonide 0.1 % 1 applic topical BID PRN 05/31/22 09/16/24 topical ointment nifedipine 30 mg tablet,extended 30 mg PO DAILY 04/25/23 09/16/24 release 24 hr warfarin 1 mg tablet 2 mg PO DAILY 07/07/24 09/16/24 hydroxyzine HCl 25 mg tablet 25 mg PO Q6H PRN 08/08/24 09/16/24 loratadine 10 mg tablet 10 mg PO HS 08/08/24 09/16/24 (Allerclear) metoprolol tartrate 75 mg tablet 75 mg PO BID 08/12/24 09/16/24 Previous Rx's ?Medication ?Instructions ?Recorded acetaminophen 500 mg capsule 500 - 1,000 mg (1 - 2 x 500 mg) PO 08/12/24 Q6H PRN pain #100 caps oxycodone 5 mg tablet 2.5 - 5 mg (0.5 - 1 x 5 mg) PO 08/12/24 Q4-6H PRN Pain #42 tabs sennosides 8.6 mg tablet (Senna 17.2 mg (2 x 8.6 mg) PO BID PRN 08/12/24 Lax) constipation #100 tabs carbamazepine 100 mg 100 mg PO BID #60 caps 09/07/24 capsule,extended release [id number] ondansetron HCl 4 mg tablet 4 mg PO Q6H #20 tabs 09/07/24 diphenoxylate-atropine 2.5 1 tab PO DAILY PRN diarrhea #5 tabs 09/23/24 mg-0.025 mg tablet (Lomotil) Allergies Allergy/AdvReac Type Severity Reaction Status Date / Time carbamazepine (From Tegretol) AdvReac Verified 09/16/24 14:41 celecoxib (From Celebrex) AdvReac Verified 09/16/24 14:41 hydrochlorothiazide AdvReac Verified 09/16/24 14:41 tizanidine (From Zanaflex) AdvReac Verified 09/16/24 14:41 zolpidem (From Ambien) AdvReac Verified 09/16/24 14:41 Review of Systems Status of ROS: Reports: 6 or more systems reviewed and unremarkable except as noted in History and below [facility] Medical History Hyponatremia ?E87.1 - Hypo-osmolality and hyponatremia (ICD-10) Uncomplicated alcohol dependence ?F10.20 - Alcohol dependence, uncomplicated (ICD-10) Chronic anticoagulation ?Z79.01 - local [employer] truck [employer] (current) use of anticoagulants (ICD-10) Atrial fibrillation ?I48.91 - Unspecified atrial fibrillation (ICD-10) Bilateral carotid artery disease ?I77.9 - Disorder of arteries and arterioles, unspecified (ICD-10) Trigeminal neuralgia of left side of face ?G50.0 - Trigeminal neuralgia (ICD-10) Vitamin D deficiency ?E55.9 - Vitamin D deficiency, unspecified (ICD-10) Labyrinthitis ?H83.09 - Labyrinthitis, unspecified ear (ICD-10) Fibrocystic breast disease ?N60.19 - Diffuse cystic mastopathy of unspecified breast (ICD-10) Lichen sclerosus et atrophicus ?L90.0 - Lichen sclerosus et atrophicus (ICD-10) Insomnia ?G47.00 - Insomnia, unspecified (ICD-10) CAD (coronary artery disease) ?I25.10 - Atherosclerotic heart disease of [place] coronary artery without angina pectoris (ICD-10) GERD (gastroesophageal reflux disease) ?K21.9 - Gastro-esophageal reflux disease without esophagitis (ICD-10) Hypertension ?I10 - Essential (primary) hypertension (ICD-10) Arthritis ?M19.90 - Unspecified osteoarthritis, unspecified site (ICD-10) Surgical History History of arthroplasty of right knee (08/12/24) ?Z96.651 - Presence of right artificial knee joint (ICD-10) H/O wisdom tooth extraction ?K08.409 - Partial loss of teeth, unspecified cause, unspecified class (ICD- 10) History of cataract extraction with lens replacement H/O exploratory laparotomy ?Z98.890 - Other specified postprocedural states (ICD-10) Hx of vein stripping ?Z98.890 - Other specified postprocedural states (ICD-10) History of appendectomy ?Z90.49 - Acquired absence of other specified parts of digestive tract (ICD- 10) Status post left knee replacement (04/21/22) ?Z96.652 - Presence of left artificial knee joint (ICD-10) Family History Mother Stroke Arthritis Father Coronary artery disease Sister Stroke Sister Stroke Aortic aneurysm Social History Narrative: . Lives alone. She has a sister who lives 6 blocks away and can help drive her places. Denies tobacco use. Quit alcohol altogether when diagnosed with afib. What is your current living situation?: I presently have a place to live Problems where you live: no known problems Problems where you live details: steps In the past 12 months, utilities in danger of being shut off: no In past 12 months, lack of transportation kept you from medical appts, meetings, work, or getting things needed for daily living: no In the past 12 mos, have been you worried that your food would run out before you had money to buy more?: never true In the past 12 mos, the food you bought just didn't last and you didn't have mo olimpia to buy more?: never true Smoking Status: Never smoker Do you use any of these nicotine containing products: None Second hand tobacco smoke exposure: No How often do you have a drink containing alcohol: never AUDIT-C Alcohol total score: 0 Non-prescribed substance use: denies use Caffeine: Yes (5-7) How often does anyone, including family, friends and others, physically hurt you : never How often does anyone, including family, friends and others, insult or talk down to you: never How often does anyone, including family, friends and others, threaten you with harm: never How often does anyone, including family, friends and others, scream or curse at you: never service: No Exam Narrative: Exam Narrative: Vital signs as noted above. In general, an alert, well-appearing patient. Head: Normocephalic, atraumatic. Eyes: Pupils are equal reactive. Extraocular movements are full. Conjunctivae are normal. ENT: Mucous membranes are moist. Neck: Supple without lymphadenopathy. Heart: Regular rate and rhythm. No murmur or rub. Lungs: Clear bilaterally. No increased work of breathing, crackles or wheezes. Abdomen: Soft and entirely nontender. Extremities: Well perfused. No edema. No calf tenderness. Pulses intact. Neurologic: Patient is alert and oriented to person and place. Speech is fluent. Face is symmetric. Moves all extremities equally. Affect: Normal. Skin: Warm and dry. Well perfused. Const: Vital Signs, click to edit/add: Vital Signs - 24 hr 09/23/24 09:18 Temperature 98 F Pulse Rate [Right Pulse Oximeter] 70 Respiratory Rate 18 Blood Pressure [Ri ght Upper Arm] 144/76 H Pulse Oximetry 96 Oxygen Delivery Me thod Room Air Documenting provider has reviewed patient's vital signs: yes Course Course ED Course: I reviewed her records from Sunday here, and had a lengthy conversation with her about her symptoms. Given the enema and magnesium citrate, as well as the prior fecal impaction/encopresis, not entirely surprising that she is having loose stools now. She has no abdominal pain and a completely benign exam. I did not repeat a rectal exam as it sounds by her report that she did pass a lot of solid stool so my suspicion for ongoing stool retention is pretty low. She did by MiraLax but has not started it yet, she is chronically constipated, but we discussed that I would not start the MiraLax until she feels she is back to normal. We discussed we need for imaging or labs, which I do not think we need today and she would just as soon not do any more tests and unless they are absolutely necessary. Therefore, we will go ahead and discharge home. I did prescribe 5 tablets of Lomotil for her. Discussed that she could take 1 of these, I would then give it a day or 2 and see how she does, reviewed that we do not want to center too far in the other direction. If she develops abdominal pain, fevers, bloody stools vomiting or other worsening she should come back. See primary care if not gradually improving. Discussed that for chronic con stipation, daily MiraLax is a good option for her. Vital Signs Vital signs: Initial Vital Signs Temperature 98 F 09/23/24 09:18 Temperature Source Temporal Artery Scan 09/23/24 09:18 Pulse Rate 70 09/23/24 09:18 Respiratory Rate 18 09/23/24 09:18 Blood Pressure 144/76 H 09/23/24 09:18 Blood Pressure Mean 98 09/23/24 09:18 Blood Pressure Position Sitting 09/23/24 09:18 Pulse Oximetry 96 09/23/24 09:18 Oxygen Delivery Method Room Air 09/23/24 09:18 Vital Signs Temperature 98 F 09/23/24 09:18 Pulse Rate 70 09/23/24 09:18 Respiratory Rate 18 09/23/24 09:18 Blood Pressure 144/76 H 09/23/24 09:18 Pulse Oximetry 96 09/23/24 09:18 Oxygen Delivery Method Room Air 09/23/24 09:18 Temperature 98 F 09/23/24 09:18 Pulse Rate 70 09/23/24 09:18 Respiratory Rate 18 09/23/24 09:18 Blood Pressure 144/76 H 09/23/24 09:18 Pulse Oximetry 96 09/23/24 09:18 Oxygen Delivery Method Room Air 09/23/24 09:18 Discharge Plan Discharge Clinical Impression: Diarrhea Patient Disposition: Home, Self-Care Condition: Stable Instructions: Acute Diarrhea (ED) Additional Instructions: I think that the diarrhea your having is in part related to your recent stool impaction and possibly also related to the magnesium citrate that you took in order to improve the constipation. I am prescribing a medicine for diarrhea, you can try dose today, a 2nd dose tomorrow if needed, but I would be very careful about using too much of this medicine as we do not want to cause you to be significantly constipated again. Once stools are stabilized, I would suggest that you use MiraLax, half cap to 1 cap daily to keep stools soft and avoid constipation in the future. Follow-up with your primary doctor if you are not having luck getting things back to normal. Return to the ER at any time for significant abdominal pain, bloody stools, vomiting fevers or other worsening. Prescriptions: New diphenoxylate-atropine [Lomotil] 2.5-0.025 mg tablet 1 tab PO DAILY PRN (Reason: diarrhea) Qty: 5 0RF No Action nifedipine 30 mg tablet extended release 24hr 30 mg PO DAILY cholecalciferol (vitamin D3) 125 mcg (5,000 unit) tablet 5,000 unit PO 2XW Rx Instructions: TAKES ON SAT and SUN montelukast 10 mg tablet 10 mg PO HS fluorometholone 0.1 % drops,suspension 1 drp ophthalmic (eye) TID PRN triamcinolone acetonide 0.1 % ointment 1 applic topical BID PRN meclizine 25 mg tablet 25 mg PO TID PRN terazosin 1 mg capsule 1 mg PO HS omeprazole 20 mg capsule,delayed release(DR/EC) 20 mg PO DAILY losartan 100 mg tablet 100 mg PO HS warfarin 1 mg tablet 2 mg PO DAILY hydroxyzine HCl 25 mg tablet 25 mg PO Q6H PRN loratadine [Allerclear] 10 mg tablet 10 mg PO HS sennosides [Senna Lax] 8.6 mg Tablet 17.2 mg PO BID PRN (Reason: constipation) Qty: 100 0RF acetaminophen 500 mg capsule 500 - 1,000 mg PO Q6H MDD 4000mg per day PRN (Reason: pain) Qty: 100 0RF oxycodone 5 mg Tablet 2.5 - 5 mg PO Q4-6H MDD 6 tabs per day PRN (Reason: Pain) Qty: 42 0RF Rx Instructions: Minimize. Discontinue as soon as possible metoprolol tartrate 75 mg tablet 75 mg PO BID carbamazepine 100 mg capsule, ER multiphase 12 hr 100 mg PO BID Qty: 60 2RF ondansetron HCl 4 mg tablet 4 mg PO Q6H Qty: 20 1RF Follow Up/Referrals: Pretty Cantu MD [Primary Care Provider] - Stand Alone Forms: [facility] Info Instructions
== END 2024-09-23 09:55 | disposition home or self-care (01) ==
LOC: ED 09:52
PROVIDERS: Emergency Provider Emergency Medicine; PCP Student in an Organized Health Care Education/Training Program
DX: R19.7 Diarrhea, unspecified (principal)
CPT/HCPCS: 99283; 99284

== ENCOUNTER 2024-09-25 13:00 | Outpatient (RCR) | payer MEDICARE, BC, SELFPAY | END 2025-01-23 23:59 | disposition home or self-care (01) | PROVIDERS: PCP Family Medicine; Visit Provider Orthopaedic Surgery | DX: M17.11 Unilateral primary osteoarthritis, right knee (principal); Z96.651 Presence of right artificial knee joint; Z47.89 Encounter for other orthopedic aftercare; M25.561 Pain in right knee; Z74.09 Other reduced mobility; R26.9 Unspecified abnormalities of gait and mobility; M62.81 Muscle weakness (generalized); Z51.89 Encounter for other specified aftercare | CPT/HCPCS: 97110; 97116; 97140; 97161; 97162; 97530; A9270; J2250; J3010 ==

== ENCOUNTER 2024-10-03 11:11 | Outpatient (CLI) | payer MEDICARE, BC, SELFPAY ==
--- OUTSIDE RECORDS SUMMARY | 2024-10-03 11:14 | XMS_ITS | Clinical Summary ---
Author Organization [employer] [facility] [employer] Address [place], [place] [address] Care Team Providers Care [employer] Name Role Phone Pretty Cantu MD Primary [...] 1 mg (1 mg x 1) every Sun and Sun; 2 mg (1 mg x 2) all other days in the evening OR as directed 4 Active lamoTRIgine 25 mg tabletIndications:T rigeminal neuralgia of left side of face Take 25mg once daily for 2 weeks, then take 50mg daily for 2 weeks then increase to 50mg twice daily until follow-up with provider. If dizziness/lighthe adedness with change in dose, decrease to most tolerable dose. 86 Tablet 4 Active gabapentin (NEURONTIN) 300 mg capsuleIndications: Trigeminal neuralgia of left side of face Take 1 Capsule (300 mg) by mouth once daily in the morning. 4 09/05/20 Discontinue d(*Allergic /Adverse Rxn/Side Effects) warfarin (COUMADIN) 1 mg tabletIndications:N ew onset atrial fibrillation (HC),Anticoagulatio n monitoring, INR range 2-3 Take by mouth 1 mg (1 mg x 1) every Mon, Sun, Sun; 2 mg (1 mg x [...] add note to specify (E-cancel not sent)) warfarin (COUMADIN) 1 mg tabletIndications:N ew onset atrial fibrillation (HC),Anticoagulatio n monitoring, INR range 2-3 Take by mouth 1 mg (1 mg x 1) every Sun, Wed, Sun; 2 mg (1 mg x 2) all other days in the evening OR as directed 4 09/25/20 Discontinue d(Reorder (E-cancel not sent)) Active Problems [...] Encounters Date Type Department Care Team Description 10/01/2024 Telephone [facility] [address] [place] [address] Pretty Cantu MD Appointment (Neurology) 09/29/2024 2:40 PM [employer]US [employer]ERTY DISPOSAL [employer]ENT Office Visit [facility] [address] [place] [address] Pretty Cantu MD Hospital F/U 09/29/2024 Travel 09/29/2024 Telephone [facility] [address] [place] [address] Pretty Cantu MD Questions 09/26/2024 Telephone [facility] [address] [place] [address] Pretty Cantu MD UPDATE 09/25/2024 Anticoagulation (warfarin) [facility] [address] [place] [address] 1, [facility] Anticoagulation 09/24/2024 1:30 PM CDT Orders Only [facility] [address] [place] [address] Lab, [facility] 09/24/2024 Travel 09/23/2024 Telephone [facility] [address] [place] [address] Pretty Cantu MD Anticoagulation (Lab Orders) 09/23/2024 Telephone [facility] [address] [place] [address] Pretty Cantu MD Questions 09/16/2024 Nurse Triage [facility] [address] [place] [address] Pretty Cantu MD Jaw Pain; Diarrhea 09/16/2024 Telephone [facility] [address] [place] [address] Pretty Cantu MD Appointment (Dong Gee's daughter looking to speak with Provider or Provider's team) 09/15/2024 7:00 AM CDT Orders Only [facility] [address] [place] [address] Lab, [facility] 09/15/2024 Anticoagulation (warfarin) [facility] [address] [place] [address] 1, [facility] Anticoagulation 09/15/2024 Travel 09/10/2024 Telephone [facility] [address] [place] [address] Liv Glass PA Anticoagulation (Chart Update lab orders/[facility] ) 09/10/2024 Telephone [facility] [address] [place] [address] Liv Glass PA Concerns (Ongoing trigeminal neuralgia/ follow up requested); Anticoagulation (New responsible provider for anticoagulation management? Sign orders?) 09/10/[address] [address] Liv Glass PA Appointment Request (POCT INR) 09/10/2024 Anticoagulation (warfarin) [address] [address] 1, [facility] Anticoagulation 09/09/2024 9:00 AM CDT Orders Only [address] [address] Lab, [facility] 09/09/2024 Travel 09/09/[address] [address] Pcp, No Appointment Request (Needs lab apt at [facility] on 09/10. ); Error-please disregard 09/08/2024 Anticoagulation (warfarin) [address] [address] 1, [facility] Anticoagulation (Chart Update) 09/08/[address] [address] Liv Glass PA Anticoagulation (Medication interaction question) 09/08/[address] [address] Jaelyn Owen MD Medication Management 09/08/[address] [address] Jaelyn Owen MD Medication Management 09/08/2024 E-Consult [address] [address] Caridad Baugh, PharmD 09/05/2024 2:45 PM CDT Office Visit [address] [address] Jaelyn Owen MD Jaw Pain (November when it started went away and came back recently, dentist says nothing to do with teeth) 09/05/2024 Travel 09/05/2024 Nurse Triage [facility] [address] [place] [address] Pcp, No Jaw Pain 09/03/2024 Anticoagulation (warfarin) [facility] [address] [place] [address] 1, [facility] Anticoagulation 09/02/2024 8:00 AM CDT Orders Only [facility] [address] [place] [address] Lab, [facility] 09/02/2024 Travel 08/28/2024 Telephone [facility] [address] [place] [address] Liv Glass PA Anticoagulation (Chart Update lab orders/[facility] ) 08/27/[address] [address] Liv Glass PA Anticoagulation 08/27/2024 Telephone [facility] [address] [place] [address] Liv Glass PA Anticoagulation (Dosing plan/recheck ) 08/27/2024 Anticoagulation (warfarin) [address] [address] 1, [facility] Anticoagulation 08/26/2024 10:15 AM CDT Orders Only [address] [address] Lab, [facility] 08/26/2024 Travel 08/20/[address] [address] Liv Glass PA Anticoagulation 08/20/[address] [address] Liv Glass PA Refill Request (Warfarin) 08/20/2024 Anticoagulation (warfarin) [address] [address] 1, [facility] Anticoagulation 08/19/2024 Telephone [facility] [address] [place] [address] Liv Glass PA Anticoagulation 08/19/2024 Orders Only [facility] [address] [place] [address] Liv Glass PA <No scans attached> 08/19/2024 Travel 08/15/2024 Telephone [facility] [address] [place] [address] Liv Glass PA Anticoagulation (AC ORDER) 08/14/2024 1:15 PM CDT Office Visit [facility] [address] [place] [address] Jolene Dooley PA Dizziness 08/14/2024 Travel 08/14/2024 Nurse Triage [facility] [address] [place] [address] Pcp, No Jaw Pain 08/13/2024 Telephone [facility] [address] [place] [address] Liv Glass PA Anticoagulation (Question) 08/12/2024 Orders Only [facility] Scanner 1 scan: (1-Ord) [place], KNEE RT 2VW, 08/12/2024 08/06/2024 Telephone [facility] [address] [place] [address] Pretty Cantu MD Questions 07/29/2024 Orders Only [address] [address] Pretty Cantu MD 1 scan: (1-Ord) [facility]-EKG-8.30.24 07/29/2024 Anticoagulation (warfarin) [facility] [address] [place] [address] 1, [facility] Anticoagulation (Chart Update) 07/25/2024 1:25 PM CDT Office Visit [address] [place] [address] Pretty Cantu MD Preoperative Exam (KNEE REPLACEMENT - 08/12/2024 DR. CAANS - [facility]); Concerns (neuralgia - concerns this will effect surgery. ) 07/25/2024 Telephone [facility] [address] [place] [address] Pretty Cantu MD Medication Management 07/25/2024 Travel 07/23/2024 Telephone [facility] [address] [place] [address] 1, [facility] Anticoagulation (Hold/Bridge) 07/22/2024 1:30 PM CDT Orders Only [facility] [address] [facility] [place] [address] Lab, [facility] 07/22/2024 Anticoagulation (warfarin) [facility] [address] [place] [address] 1, [facility] Anticoagulation 07/22/2024 Travel from Last 3 Months Immunizations Name Administration Dates Next Due AMB Influenza, IIV3 (Age >=3 years)(Flu Clinic Only) 09/15/2008 COVID-19 vaccine (Pfizer-Bio NTech 30mcg/0.3mL) 12YO+ MAYRA-SUCROSE PF MDMiya 04/03/2022 COVID-19 vaccine (Pfizer-Bio NTech 30mcg/0.3mL) PFCHAVA 09/29/2021,02/08/2021,01/18/2021 Influenza RIV4 (Age 18+ Year s) PRESERV FREE 09/22/2019 Influenza, High-dose Inactivated 10/02/2018,110 07/2017,09/24/2016 Influenza, High-dose Quadriv alent Inactivated 09/24/2023,09/30/2022,10/03/2021,2019 Influenza, [...] Sign Reading Time Taken Comments Blood Pressure 158/70 09/29/2024 2:41 PM [employer]ENT Pulse 62 09/29/2024 2:41 PM [employer]ENT Temperature 36.6 ??C (97.8 ??F) 11/30/2023 1:12 PM CS T Respiratory Rate 16 11/30/2023 1:12 PM [employer] DISPOSAL [employer]ENT Oxygen Saturation 100% 09/29/2024 2:41 PM [employer] DIS[employer]AL [employer]ENT Inhaled Oxygen Concentration - - Weight 51.5 kg (113 lb 9.6 oz) 09/29/2024 2:41 P M [employer] Height 152.4 cm (5') 03/18/2024 10:46 AM CDT Body Mass Index 22.19 03/18/2024 10:46 AM CDT Plan of Treatment Health Maintenance Due Date Last Done Comments [...] Priority Date/Time Associated Diagnosis Comments PROTIME-INR Routine 09/24/2024 1:23 PM CDT New onset atrial fibrillation (HC) Anticoagulation monitoring, INR range 2-3 INR,POCT Routine 09/15/2024 7:11 AM CDT New [...] Routine 07/29/2024 10:37 AM CDT Pre-op exam MS READING EKG - NO CHARGE, COMP ONLY Routine 07/29/2024 10:36 AM CDT Pre-op exam HEMOGLOBIN Routine 07/25/2024 2:33 PM CDT Pre-op exam BASIC METABOLIC PANEL Routine 07/25/2024 2:33 PM CDT Pre-op exam PROTIME-INR STAT 07/22/2024 1:30 PM CDT New onset atrial fibrillation (HC) Anticoagulation monitoring, INR range 2-3 from Last 3 Months Results * (ABNORMAL) PROTIME-INR [52292.0] - Standing Order (09/24/2024 1:23 PM CDT) Only the most recent of6 resultswithin the time period is included. INR 1.2 <1.3 09/24/2024 10:56 PM CDT [facility] PROTIME 13.5(H) 10.6 - 12.4 sec 09/24/2024 10:56 PM CDT [facility] Blood BLOOD SPECIMEN / Unknown [facility] Collect / Unknown 09/24/2024 1:23 PM CDT 09/24/2024 1:21 PM CDT Narrative [facility] - 09/24/2024 10:56 PM CDT ?Therapeutic Range 2.0-3.0 for most anticoagulated patients 2.5-3.5 or 4.0 for high risk patients The INR is only used for patients on stable oral anticoagulant therapy. It makes no significant contribution to the diagnosis or treatment of patients whose Protime is prolonged for other reasons. INR results are increased when heparin levels exceed 1.0 U/mL, which corresponds to an aPTT >125 seconds if the patient is on UFH. Pretty Cantu MD HEMATOLOGY [facility] [address] [place] [address], * (ABNORMAL) INR,POCT (09/15/2024 7:11 AM CDT) INR 1.3(H) ratio [facility] Comment: INRs >2.9 may be [...] PROTHROMBIN TIMEP 16.2(H) 10.5 - 13.1 sec [facility] Comment: Point of care fingerstick Prothrombin Time/INR results may vary from venous Prothrombin Time/INR methodologies. Any results exhibiting inconsistency with the patient's clinical status should be repeated using a venous Prothrombin Time/INR method. Blood BLOOD SPECIMEN / Unknown 09/15/2024 7:11 AM CDT 09/15/2024 7:13 AM CDT [facility] Performing Organization Address [facility]/ZIP Co de Phone Number [facility] [address] [place] [address], [place] [phone] [facility] [address] [place] [address] * SCAN-RADIOLOGY REPORT (08/12/2024 12:00 AM CDT) Anatomical Region Laterality Modality Other Scanner OTHER * EKG 12 LEAD (07/29/2024 10:37 AM CDT) Pretty Cantu MD EKG ORD * MS READING EKG - NO CHARGE, COMP ONLY [...] Pretty Cantu MD HEMATOLOGY Performing Organization Address City/[facility]/ZIP Co de Phone Number [facility] [address] [place] [address], [place] [phone] * (ABNORMAL) BASIC METABOLIC PANEL (07/25/2024 2:33 PM CDT) SODIUM 134(L) 136 - 145 mmol/L 07/25/2024 10:57 PM CDT [facility] POTASSIUM 3.8 3.5 - 5.1 mmol/L 07/25/2024 10:57 PM CDT [facility] CHLORIDE 97(L) 98 - 107 mmol/L 07/25/2024 10:57 PM CDT [facility] CO2,TOTAL 25 22 - 29 mmol/L 07/25/2024 10:57 PM CDT [facility] ANION GAP 12 5 - 18 07/25/2024 10:57 PM CDT [facility] GLUCOSE 108(H) 70 - 99 mg/dL 07/25/2024 10:57 PM CDT [facility] CALCIUM 9.2 8.8 - 10.2 mg/dL 07/25/2024 10:57 PM CDT [facility] BUN 11 8 - 23 mg/dL 07/25/2024 10:57 PM CDT [facility] CREATININE 0.70 0.50 - 0.90 mg/dL 07/25/2024 10:57 PM CDT [facility] BUN/CREAT RATIO 16 10 - 20 10:57 PM CDT [facility] eGFR 86(L) >90 mL/min/1.7 3m2 07/25/2024 10:57 PM CDT [facility] Comment:As of 2022, eG [...] 2:33 PM CDT Pretty Cantu MD [facility] [address] [place] [address], from Last 3 Months Care Teams [employer] Relationship Specialty Start Date End Date Pretty Cantu MD [address] [place] [address] PCP - General Family Practice 09/10/24
[2024-10-03 11:50] LABS: INR 1.13 (0.91-1.10); Prothrombin Time 15.2 Seconds
== END 2024-10-03 11:12 | disposition home or self-care (01) ==
PROVIDERS: PCP Student in an Organized Health Care Education/Training Program; Visit Provider Student in an Organized Health Care Education/Training Program
DX: I48.91 Unspecified atrial fibrillation (principal); Z79.01 Long term (current) use of anticoagulants
CPT/HCPCS: 36415; 85610

== ENCOUNTER 2025-02-11 15:42 | Emergency (ER) | payer MEDICARE, BC, SELFPAY ==
--- OUTSIDE RECORDS SUMMARY | 2025-02-11 15:44 | XMS_ITS | Encounter Summary ---
Author Organization [facility] Address [address] [place] [id number] Care Team Providers Care [employer] Name Role Phone Pretty Cantu MD Primary Care Prov ider Encounter Details Date Type Department Care Team (Late st Contact Info) Description 02/11/2025 Order-Scan [facility] Neurology [address] [place] [phone] Reyna Stringer PA-C [address] [place] [address] [place] [id number] Social History Tobacco Use Types Packs/Day Years Used Date Smoking Tobacco: Never Smokeless Tobacco: Never Alcohol Use Standard Drinks/Week Comments Not Currently 0 (1 standard drink = 0.6 oz pur e alcohol) Comments Unknown Sex and Gender Information Value Date Recorded Sex Assigned at Female 10/02/2024 8:35 PM ANIMAL HUSBANDMAN Legal Sex Female 11:32 AM ANIMAL HUSBANDMAN Gender Identity Female 10/02/2024 8:35 PM ANIMAL HUSBANDMAN Sexual Orientation Straight 10/02/2024 8: 35 PM ANIMAL HUSBANDMAN documented as of this encounter Plan of Treatment Not on file documented as of this encounter Procedures Procedure Name Priority Date/Time Associated Diagnosis Comments SCANNED LAB Routine 02/11/2025 7:35 AM CDT documented in this encounter Results * SCANNED LAB (02/11/2025 7:35 AM CDT) us Reyna Stringer PA-C MICROBIOLOGY ORDERABLE Fi nal Result documented in this encounter Visit Diagnoses Not on filedocumented in this encounter Care Teams [employer] Relationship Specialty Start Date End Date Pretty Cantu MD [address] [place] [address] PCP - General Family Medicine 10/01/24 documented as of this encounter
--- OUTSIDE RECORDS SUMMARY | 2025-02-11 15:44 | XMS_ITS | Clinical Summary ---
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) 02/04/2025 Travel from Last 3 Months Social History Tobacco Use Types Packs/Day Years Used Date Smoking Tobacco: Never Assessed Comments No Sex and Gender Information Value Date Recorded Sex Assigned at Not on file Legal Sex Female 4:28 AM RING STRIKER Gender Identity Not on file Sexual Orientation Not on file Plan of Treatment Health Maintenance Due Date Last Done Comments ADVANCE CARE PLANNING 1940 ANNUAL REVIEW OF HM ORDERS 1940 DEXA 1940 FALL RISK ASSESSMENT 2006 RSV VACCINE (1 - 1-dose 75+ series) 2016 PHQ-2 (once per calendar year) 2024 COVID-19 Vaccine ( season) 2025 10/15/2024, 09/24/2023, 09/30/2022, Additional history exists DTAP/TDAP/TD IMMUNIZATION (3 - Td or Tdap) 08/02/2033 08/02/2023, 06/07/2012, 04/27/2006 Pneumococcal Vaccine: 50+ Years Completed 10/04/2017, 10/08/2014, 09/29/1999 ZOSTER IMMUNIZATION Completed 09/15/2019, 07/07/2019, 10/08/2012 INFLUENZA VACCINE Completed 10/10/2024, , 09/30/2022, Additional history exists HPV IMMUNIZATION Aged Out No longer e ligible based on patient's age to complete this topic MENINGITIS IMMUNIZATION Aged Out No l onger eligible based on patient's age to complete this topic Procedures Procedure Name Priority Date/Time Associated Diagnosis Comments [place] MISCELLANEOUS TEST Routine 02/04/2025 2:21 PM CDT Alzheimer's disease with early onset (CODE) (H) 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) [facility] MISCELLANEOUS TEST Routine 02/04/2025 2:21 PM CDT Alzheimer's disease with early onset (CODE) (H) 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) [facility] MISCELLANEOUS ORDER Routine 02/04/2025 2:21 PM CDT Alzheimer's disease with early onset (CODE) (H) 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) LABORATORY MISCELLANEOUS ORDER Routine 02/04/2025 2:21 PM CDT Alzheimer's disease with early onset (CODE) (H) 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) LABORATORY MISCELLANEOUS ORDER Routine 02/04/2025 2:21 PM CDT Alzheimer's disease with early onset (CODE) (H) 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) APOLIPOPROTEIN E GENOTYPING, ALZHEIMER DISEASE RISK Routine 02/04/2025 2:21 PM CDT Alzheimer's disease with early onset (CODE) (H) 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) FOLATE Routine 02/04/2025 2:21 PM CDT Alzheimer's disease with early onset (CODE) (H) 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 It has not been cleared or approved by the Food and Drug Administration. p-jfv442 0.40 [H ] pg/mL 01 Reference Range: 0.00-0.18 Clinical cutoff value was established using samples from a patient cohort characterized with amyloid PET data. A p-fzz944 value of >0.18 is a reported surrogate marker for beta amyloid pathology, and can be used to facilitate biological identification of Alzheimer's disease (1). p-smc088 has also been used in clinical trials to monitor patients on anti-amyloid therapy (2,3). Test performed by Palmer Hargreaves chemiluminescent enzyme immunoassay (CLEIA). Values obtained with different methods cannot be used interchangeably. The validated limit of quantification is 0.06 pg/mL. Assay detection limit is 0.03 pg/mL. Footnotes Comment 01 1. Vladimir Harris, et al. Diagnostic Accuracy of a Plasma Phosphorylated Tau 217 Immunoassay for Alzheimer Disease Pathology. [facility] neurology (2023). 2. Vladimir Harris, et al. Differential roles of A42/40, p-xro116 and p-soy440 for Alzheimer's trial selection and disease monitoring. Nature medicine 28.12 (2021): 8836-2186. 3. Mickey JEAN, Maia M, Nik[place] SC, et al. Association of [place] Treatment With Exploratory Plasma Biomarkers in Early Symptomatic Alzheimer Disease: A Secondary Analysis of the TRAILBLAZER-ALZ Randomized Clinical Trial. [facility] Neurol. 2021;79(12):4683-4512. Blood STRUCTURE OF RIGHT UPPER LIMB / Unknown Venipuncture / Unknown 02/04/2025 2:21 PM CDT 02/04/2025 2:22 PM CDT Narrative [facility] - 02/10/2025 6:07 PM CDT Performed At: 01 [email or web address] [address] [place] [id number] Dioni Dow MD Ph:[phone] Performed At: 02 [facility] [address] [place], [place] [id number] Kylah Mabry MD Ph:[phone] Tunde Mckenzie MD LAB - BLOOD ORDERABLES Final R esult [facility] [address] [place] [address], [facility] [phone] * Apolipoprotein E Genotyping, Alzheimer Disease Risk (02/04/2025 2:21 PM CDT) APOE Specimen Whole Blood 02/10/2025 10:21 PM CDT [facility] Apolipoprotein E Alzheimer Disease Risk, Genotype e3/e3 02/10/2025 10:21 PM CDT [facility] Comment: Indication for testing: Determine APOE genotype for the purpose of Alzheimer disease risk assessment. Homozygous APOE e3/e3: This is the most common genotype in the general population; it is not associated with increased Alzheimer disease (AD) risk. However, the diagnosis of AD is primarily based on clinical evaluation and APOE genotype alone is not sufficient to diagnose or exclude AD. This result has been reviewed and approved by Tierney Mock, Ph.D. BACKGROUND INFORMATION: Apolipoprotein E (APOE) Genotyping, Alzheimer Disease Risk Characteristics: Alzheimer disease (AD), the most common cause of dementia, is characterized by progressive cognitive decline including memory, problem-solving skills, multi-step tasks, planning, and changes in personality. A clinical diagnosis of probable AD can be made based on clinical signs and neuroimaging, and the diagnosis is confirmed postmortem based on neuropathologic findings. The e4 allele of the APOE gene has been widely demonstrated to be associated with increased risk of AD. In individuals with a clinical diagnosis of AD, the presence of the e4 allele increases the likelihood that the diagnosis is correct, but is not diagnostic alone. APOE genotyping is not recommended for predicting AD risk in asymptomatic individuals. Prevalence of APOE e4: Heterozygosity and homozygosity for the e4 allele is present in approximately 25 percent and 1-2 percent of the general population, respectively. Inheritance of APOE e4: Semi-dominant. Penetrance of APOE e4: Incomplete and influenced by age, gender, ethnicity, family history and environmental factors. The e4 allele is neither necessary nor sufficient for diagnosing AD; therefore, not all individuals with AD have the e4 allele and not all individuals with the e4 allele will develop AD. Cause: Multi-factorial. Variants Tested: Two single nucleotide polymorphisms in the APOE gene at codons 130 ([id number]) and 176 ([id number]). The e3 allele (Cysteine at 130 and Arginine at 176) is the most common in the general population. The e4 allele (Arginine at 130 and 176) is associated with increased AD risk. The e2 allele (Cysteine at codons 130 and 176) may be associated with a lower risk for AD but homozygosity has been associated with increased risk for type III hyperlipoproteinemia. Clinical Sensitivity: Approximately 30-60 percent of individuals diagnosed with AD carry at least one e4 allele. The e4/e4 genotype is found in approximately 13 percent of the AD population and 20 percent of the familial AD population. Methodology: Polymerase chain reaction (PCR) and fluorescence monitoring. Analytical Sensitivity and Specificity: 99 percent. Limitations: Only the APOE alleles e2, e3 and e4 will be detected; rare alleles are not detected by this test. Diagnostic errors can occur due to rare sequence variations. This test was developed and its performance characteristics determined by [facility]. It has not been cleared or approved by the [place] Food and Drug Administration. This test was performed in a CLIA certified laboratory and is intended for clinical purposes. Counseling and informed consent are recommended for genetic testing. Consent forms are available online. Performed By: [facility] [address] [place] [address] Rouge Mixer: Sd Garcia MD, PhD CLIA Number: [id number] Blood STRUCTURE OF RIGHT UPPER LIMB / Unknown Venipuncture / Unknown 02/04/2025 2:21 PM CDT 02/04/2025 2:22 PM CDT us Tunde Mckenzie MD LAB - BLOOD ORDERABLES Final R esult [facility] [address] [place] [phone] [phone] * [facility]; [id number]; Phosphorylated Tau 217 (pTau-217), Plasma (Laboratory Miscellaneous Order) (02/04/2025 2:21 PM CDT) Only the most recent of3 resultswithin the time period is included. Specimen Status Specimen received. Reordered and sent to performing laboratory. Report to follow upon completion. [facility] 02/04/2025 3:09 PM CDT LABORATORY Performing Laboratory [facility] 02/04/2025 3:09 PM CDT LABORATORY Test Name Phosphorylated Tau 217 (pTau-217), Plasma [facility] 02/04/2025 3:09 PM CDT LABORATORY Test Code [id number] [facility] 02/04/2025 3:09 PM CDT LABORATORY Blood STRUCTURE OF RIGHT UPPER LIMB / Unknown Venipuncture / Unknown 02/04/2025 2:21 PM CDT 02/04/2025 2:22 PM CDT Tunde Mckenzie MD LAB - BLOOD ORDERABLES Final R esult LABORATORY [facility] [address] [facility]1st floor, no room number) [place] [address], [facility] * [facility]; Thyroid Function [place], Serum [place] Miscellaneous Test (02/04/2025 2:21 PM CDT) [facility] Result SEE NOTE 02/06/2025 1:30 PM CDT [facility] Comment: Test Result Flag Unit RefValue Thyroid Function [place], S TSH, Sensitive, S 1.4 mIU/L 0.3-4.2 Test Performed by: [facility] - [address] [address] Exhibits Manager: Sweetie Meneses Ph.D.; CLIA# [id number] Blood STRUCTURE OF RIGHT UPPER LIMB / Unknown Venipuncture / Unknown 02/04/2025 2:21 PM CDT 02/04/2025 2:22 PM CDT us Tunde Mckenzie MD LAB - BLOOD ORDERABLES Final R esult [facility] [address] [place] [id number] [phone] * Folate (02/04/2025 2:21 PM CDT) Folic Acid 15.3 4.6 - 34.8 ng/mL 02/04/2025 11:17 PM CDT U LABORATORY Blood STRUCTURE OF RIGHT UPPER LIMB / Unknown Venipuncture / Unknown 02/04/2025 2:21 PM CDT 02/04/2025 2:22 PM CDT us Tunde Mckenzie MD LAB - BLOOD ORDERABLES Final R esult U LABORATORY [facility], Room [address] * Vitamin B12 (02/04/2025 2:21 PM CDT) Vitamin B12 449 232 - 1,245 pg/mL 02/05/2025 3:43 PM CDT U LABORATORY Blood STRUCTURE OF RIGHT UPPER LIMB / Unknown Venipuncture / Unknown 02/04/2025 2:21 PM CDT 02/04/2025 2:22 PM CDT us Tunde Mckenzie MD LAB - BLOOD ORDERABLES Final R esult [facility], [address] from Last 3 Months Insurance BCBS [facility] MEDICARE [facility] MEDICARE Care Teams Loan Examiner Relationship Specialty Start Date End Date Bert Ramirez [address] [place], [place] [phone] PCP - General 02/04/25
--- OUTSIDE RECORDS SUMMARY | 2025-02-11 15:44 | XMS_ITS | Clinical Summary ---
Author Organization [facility] Address [address] [place] [address] [place] [address] Care Team Providers Care Psychological Assistant Name Role Phone Pretty Cantu MD Primary Care Prov ider Allergies Active Allergy Reactions Criticality Noted Date Comments Carbamazepine Other 04/10/2017 Nausea and vomiting Lightheaded Celecoxib Vomiting Medium 09/11/2022 Gabapentin Hives 09/05/2024 Hydrochlorothiazide Other 04/10/2017 Hyponatremia Tizanidine Diarrhea Medium 06/15/2020 Zolpidem Other 09/09/2018 Bad dreams Medications Losartan (COZAAR) 100 mg oral tablet Take 1 tablet (100 mg) by mouth Daily. 10/30/2023 Active montelukast (SINGULAIR) 10 mg oral tablet Take 1 tablet (10 mg) by mouth Daily. 10/30/2023 Active metoprolol tartrate 75 mg oral Tab Take 75 mg by mouth twice a day. 07/25/2024 Active omeprazole (PRILOSEC) 20 mg oral delayed release capsule Take 1 capsule (20 mg) by mouth Daily. 10/30/2023 Active sertraline (ZOLOFT) 25 mg oral tablet Take 1 tablet (25 mg) by mouth Daily. 08/19/2024 Active terazosin (HYTRIN) 1 mg oral capsule Take 1 capsule (1 mg) by mouth Daily. 10/30/2023 Active Nifedipine 30 mg oral extended release tablet 24 HR Take 1 tablet (30 mg) by mouth Daily. 10/30/2023 Active warfarin (COUMADIN) 1 mg oral tablet Take by mouth 1 mg (1 mg x 1) every Sun and Sun; 2 mg (1 mg x 2) all other days in the evening OR as directed 09/25/2024 Active OXcarbazepine (TRILEPTAL) 150 mg oral tablet Take 1 tablet (150 mg) by mouth twice a day. 180 tablet 3 01/06/2025 Active Hospital, Clinic, or Other Facility Administered Medication Ordered Dose Route Frequency Start Date End Date Status onabotulinumtoxinA (Botox) injection 100 UnitsIndications: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, psychotic disturbance, mood disturbance, or anxiety (HCC) 100 Units IM ONCE 02/04/2025 02/04/2025 Ended Active Problems No known active problems Encounters Date Type Department Care Team Description 02/11/2025 Order-Scan [address] [place] [phone] Reyna Stringer PA-C 02/09/2025 Order-Scan [address] [place] [phone] Tunde Mckenzie MD 02/05/2025 Order-Scan [address] [place] [phone] Tunde Mckenzie MD 02/04/2025 1:30 PM CDT Office Visit [address] [place] [phone] Tunde Mckenzie MD 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, psychotic disturbance, mood disturbance, or anxiety (HCC) (Primary Dx); 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 01/06/2025 3:15 PM REPORTING COORDINATOR Office Visit [address] [place] [phone] Tunde Mckenzie MD 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, psychotic disturbance, mood disturbance, or anxiety (HCC) (Primary Dx); 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 from Last 3 Months Social History Tobacco Use Types Packs/Day Years Used Date Smoking Tobacco: Never Smokeless Tobacco: Never Tobacco Cessation:Counseling Given: Not Answered Alcohol Use Standard Drinks/Week Comments Not Currently 0 (1 standard drink = 0.6 oz pur e alcohol) Comments Unknown Sex and Gender Information Value Date Recorded Sex Assigned at Female 10/02/2024 8:35 PM REPORTING COORDINATOR Legal Sex Female 11:32 AM REPORTING COORDINATOR Gender Identity Female 10/02/2024 8:35 PM REPORTING COORDINATOR Sexual Orientation Straight 10/02/2024 8: 35 PM REPORTING COORDINATOR Last Filed Vital Signs Vital Sign Reading Time Taken Comments Blood Pressure - - Pulse - - Temperature - - Respiratory Rate 14 10/02/2024 12:20 PM REPORTING COORDINATOR Oxygen Saturation - - Inhaled Oxygen Concentration - - Weight 49.9 kg (110 lb) 01/06/2025 3:05 PM REPORTING COORDINATOR Height 154.9 cm (5' 1) 01/06/2025 3:05 PM REPORTING COORDINATOR Body Mass Index 20.78 01/06/2025 3:05 PM REPORTING COORDINATOR Plan of Treatment Health Maintenance Due Date Last Done Comments Colonoscopy 1941 Lipid Screening 1941 Osteoporosis Screening 1941 Depression Assessment (PHQ-2) 1942 Yearly Review of HCD 1991 RSV Vaccines (1 - 1-dose 75+ series) 2016 Medicare Wellness Visit 10/22/2025 10/22/20 24, 03/02/2023, 10/12/2021 Adult Tetanus Booster 08/02/2033 08/02/2023 , 06/07/2012, 04/27/2006 Pneumococcal 50+ Years Completed 7, 10/08/2014, 09/29/1999 Zoster Vaccine Completed 09/15/2019, 06/26, 10/08/2012 Influenza Vaccine Completed 10/10/2024, , 09/30/2022, Additional history exists COVID-19 Vaccine Completed 10/15/2024, , 09/30/2022, Additional history exists Procedures Procedure Name Priority Date/Time Associated Diagnosis Comments SCANNED LAB Routine 02/11/2025 7:35 AM CDT SCANNED LAB Routine 02/04/2025 5:02 PM CDT SCANNED LAB Routine 02/04/2025 8:09 AM CDT from Last 3 Months Results * SCANNED LAB (02/11/2025 7:35 AM CDT) Only the most recent of3 resultswithin the time period is included. us Reyna Stringer PA-C MICROBIOLOGY ORDERABLE Fi nal Result from Last 3 Months Insurance [facility] [place] [facility] [place] BLUE Care Teams Psychological Assistant Relationship Specialty Start Date End Date Pretty Cantu MD [address] [place] [address] PCP - General Family Medicine 10/01/24
--- OUTSIDE RECORDS SUMMARY | 2025-02-11 15:44 | XMS_ITS | Referral Summary ---
Author Organization [facility] Address [address] [place] [address] Care Team Providers Care Voyage Management System Operator Name Role Phone Pretty Cantu MD Primary Care Prov ider Encounters Date Type Department Care Team Description 02/11/2025 Order-Scan [address] [place] [phone] Reyna Stringer PA-C 02/09/2025 Order-Scan [address] [place] [phone] Tunde Mckenzie MD 02/05/2025 Order-Scan [address] [place] [phone] Tunde Mckenzie MD 02/04/2025 1:30 PM CDT Office Visit [address] [place] [phone] Tunde Mckenzie MD 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, psychotic disturbance, mood disturbance, or anxiety (HCC) (Primary Dx); 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 01/06/2025 3:15 PM KETTLE COOK Office Visit [address] [place] [phone] Tunde Mckenzie MD 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, psychotic disturbance, mood disturbance, or anxiety (HCC) (Primary Dx); 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 from Last 3 Months Allergies Active Allergy Reactions Criticality Noted Date [...] Ended Active Problems No known active problems Social History Tobacco Use Types Packs/Day Years Used Date Smoking Tobacco: Never Smokeless Tobacco: Never Tobacco Cessation:Counseling Given: Not Answered Alcohol Use Standard Drinks/Week Comments Not Currently 0 (1 standard drink = 0.6 oz pur e alcohol) Comments Unknown Sex and Gender Information Value Date Recorded Sex Assigned at Female 10/02/2024 8:35 PM KETTLE COOK Legal Sex Female 11:32 AM KETTLE COOK Gender Identity Female 10/02/2024 8:35 PM KETTLE COOK Sexual Orientation Straight 10/02/2024 8: 35 PM KETTLE COOK Last Filed Vital Signs Vital Sign Reading Time Taken Comments Blood Pressure - - Pulse - - Temperature - - Respiratory Rate 14 10/02/2024 12:20 PM KETTLE COOK Oxygen Saturation - - Inhaled Oxygen Concentration - - Weight 49.9 kg (110 lb) 01/06/2025 3:05 PM KETTLE COOK Height 154.9 cm (5' 1) 01/06/2025 3:05 PM KETTLE COOK Body Mass Index 20.78 01/06/2025 3:05 PM KETTLE COOK Plan of Treatment Not on file Procedures Procedure Name Priority Date/Time Associated Diagnosis Comments SCANNED LAB Routine 02/11/2025 7:35 AM CDT SCANNED LAB Routine 02/04/2025 5:02 PM CDT SCANNED LAB Routine 02/04/2025 8:09 AM CDT from Last 3 Months Results * SCANNED LAB (02/11/2025 7:35 AM CDT) Only the most recent of3 resultswithin the time period is included. Reyna Stringer PA-C MICROBIOLOGY ORDERABLE Fi nal Result from Last 3 Months Insurance [facility] [place] BLUE Care Teams Voyage Management System Operator Relationship Specialty Start Date End Date Pretty Cantu MD [address] [place] [address] PCP - General Family Medicine 10/01/24
--- OUTSIDE RECORDS SUMMARY | 2025-02-11 15:44 | XMS_ITS | Encounter Summary ---
Author Organization [facility] Address [address] [place] [address] [place] [address] Care Team Providers Care Wood Grinder Operator Name Role Phone Pretty Cantu MD Primary Care Prov ider Encounter Details Date Type Department Care Team (Late st Contact Info) Description 02/05/2025 Order-Scan [facility] Neurology [address] [place] [phone] Tunde Mckenzie MD [address] [place] [address] [place] [phone] Social History Tobacco Use Types Packs/Day Years Used Date Smoking Tobacco: Never Smokeless Tobacco: Never Alcohol Use Standard Drinks/Week Comments Not Currently 0 (1 standard drink = 0.6 oz pur e alcohol) Comments Unknown Sex and Gender Information Value Date Recorded Sex Assigned at Female 10/02/2024 8:35 PM BEHAVIORAL HEALTH CLINICIAN Legal Sex Female 11:32 AM BEHAVIORAL HEALTH CLINICIAN Gender Identity Female 10/02/2024 8:35 PM BEHAVIORAL HEALTH CLINICIAN Sexual Orientation Straight 10/02/2024 8: 35 PM BEHAVIORAL HEALTH CLINICIAN documented as of this encounter Plan of Treatment Not on file documented as of this encounter Procedures Procedure Name Priority Date/Time Associated Diagnosis Comments SCANNED LAB Routine 02/04/2025 5:02 PM CDT documented in this encounter Results * SCANNED LAB (02/04/2025 5:02 PM CDT) us Tunde Mckenzie MD MICROBIOLOGY ORDERABLE Final R esult documented in this encounter Visit Diagnoses Not on filedocumented in this encounter Care Teams Wood Grinder Operator Relationship Specialty Start Date End Date Pretty Cantu MD [address] [place] [address] PCP - General Family Medicine 10/01/24 documented as of this encounter
--- OUTSIDE RECORDS SUMMARY | 2025-02-11 15:44 | XMS_ITS | Encounter Summary ---
Author Organization [facility] Address [address] [place] [address] Care Team Providers Care Top Steep Tender Name Role Phone Pretty Cantu MD Primary Care Prov ider Encounter Details Date Type Department Care Team (Late st Contact Info) Description 02/09/2025 Order-Scan [facility] 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 Legal Sex Female 11:32 AM SOLAR INSTALLATION HELPER Gender Identity Female 10/02/2024 8:35 PM SOLAR INSTALLATION HELPER Sexual Orientation Straight 10/02/2024 8: 35 PM SOLAR INSTALLATION HELPER documented as of this encounter Plan of Treatment Not on file documented as of this encounter Procedures Procedure Name Priority Date/Time Associated Diagnosis Comments SCANNED LAB Routine 02/04/2025 8:09 AM CDT documented in this encounter Results * SCANNED LAB (02/04/2025 8:09 AM CDT) us Tunde Mckenzie MD MICROBIOLOGY ORDERABLE Final R esult documented in this encounter Visit Diagnoses Not on filedocumented in this encounter Care Teams Top Steep Tender Relationship Specialty Start Date End Date Pretty Cantu MD [address] [place] [address] PCP - General Family Medicine 10/01/24 documented as of this encounter
--- OUTSIDE RECORDS SUMMARY | 2025-02-11 15:44 | XMS_ITS | Encounter Summary ---
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
--- OUTSIDE RECORDS SUMMARY | 2025-02-11 15:45 | XMS_ITS | Encounter Summary ---
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, psychotic disturbance, mood disturbance, or anxiety (HCC) Procedures [facility] NEUROPSYCH APPOINTMENT Tunde Mckenzie MD [address] [place] [address] [place], [place] [phone] Phone: tel: fax: Referral ID Status Reason Start Date Expiration Date Visits Re quested Visits Authorized [id number] Open 02/04/2025 1 1 Reason for Visit * Reason Comments Follow up * Other (Routine) - Authorized Specialty Diagnoses / Procedures Referred By Aram solorio Referred To Contact Diagnoses 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 Procedures [facility] PROCEDURE APPOINTMENT INJECTION,ONABOTULINUMTOXINA CHEMODNRVTJ [facility] [place] INNERVATED FACIAL NRV UNIL Tunde Mckenzie MD [address] [place] [address] [place] [address] Phone: tel: fax: Referral ID Status Reason Start Date Expiration Date V isits Requested Visits Authorized [id number] Authorized 11/11/2024 11/11/2025 99 99 Encounter Details Date Type Department Care Team (Late st Contact Info) Description 02/04/2025 1:30 PM CDT Office Visit [facility] - 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 Social History Tobacco Use Types Packs/Day Years Used Date Smoking Tobacco: Never Smokeless Tobacco: Never Alcohol Use Standard Drinks/Week Comments Not Currently 0 (1 standard drink = 0.6 oz pur e alcohol) Comments Unknown Sex and Gender Information Value Date Recorded Sex Assigned at Female 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 History of Present Illness (HPI): Cognitive decline: The patient has been undergoing multiple evaluations, including physical therapy and speech therapy, for ongoing cognitive concerns. Last cognitive test showed a score of 23/30. The patient has been seen by a variety of specialists, and there is ongoing concern regarding memory and cognitive function. A new test is scheduled at [facility] next week for her PET scan. A follow-up will be planned after the results are reviewed. Blood work was discussed, and it seems some tests may not have been drawn at the last visit. The patient will check with Camryn to confirm whether these tests were completed or need to be repeated.If blood work was missed, it may be drawn at [place]. B. Hemifacial spasm: Patient doing really well with Botox injections. Hemifacial spasms have almostcompletely resolved. Will continue Botox treatment. Assessment/Plan: Cognitive Concerns: Awaiting results of PET scan scheduled at [facility] next week. Follow-up visit to be planned after results are reviewed. We went over the pathophysiology of Alzheimer's disease, and medications available for treatment again today. Discussed her available MoCA scores, and various factors that could be involved in causing cognitive decline. Would recommend neuropsychological evaluation. This has been ordered. Hemifacial spasm and Botox Treatment: Botox injections were performed today. Details in the procedure note below. Follow-up: Schedule a follow-up in one month after results of the cognitive test and blood work are available. We have discussed the above details with Ms. Lr at length and together we feel that this is an appropriate path of care. She is satisfied with this conversation and has no further questions at this time. She is to contact the clinic with any questions or concerns. Tunde Mckenzie MD Neurologist, [facility] 1:49 PM 02/04/2025 This note will be shared with the patient and any medical providers as directed by them. Please excuse any typographical errors, as this note was generated using a Voice Recognition Software. I spent 32 minutes on the date of the encounter with this patient consisting of activities before, during and after the encounter including time spent: Preparing to see the patient including review of the chart, tests, and/or outside records. Reviewing and verifying information regarding the chief complaint and history already recorded by ancillary staff and/or the patient. Obtaining history and performing medically appropriate evaluation. Counseling the patient regarding the diagnosis, additional diagnostic considerations, possible diagnostic testing, and any potential options for therapy, including conservative/lifestyle measures and pharmacotherapy including risks/benefits, side effects and adverse effects. I also counseled the patient on how to contact me with any questions or concerns, new or worsening symptoms. Ordering medications, tests, and/or procedures, and documenting the chart. Does not include time spent performing any injections/ procedures, or interpretation of any EMG or EEG services billed separately. I am the single focal point of care for a condition that requires longitudinal relationship and personalized care for condition(s) specified within this medical record 2024: Current Medications Reviewed at this visit Patient has had no falls in calendar year PROCEDURE NOTE: BOTULINUM TOXIN INJECTION Patient identification: Verified using date of and full name. Indication for use: Hemifacial spasms. History: The patient has a known history of hemifacial spasm, which has been refractory to multipleoral medications as mentioned in previous office notes. Please refer to past office visit notes forcomprehensive details of symptoms and medications used prior to Botox injection protocol initiation. Consent: After confirming history of above symptoms with the patient, details of the procedure wereoffered to the patient along with its alternatives and risks involved. A patient information sheet including written instructions for care and a listing of side effects and pertinent pharmacological data was given to the patient. Goals of procedure: Reduction in muscle tone. Patient expressed understanding of realistic expectations and targets. Last Botox injection: October 2024. Botox was supplied by [facility]. Lot number: See above. Expiration date: See above. Details of procedure: The patient was lying/ seated for different parts of the procedure. The muscles intended to be injected were charted, and the plan of injection sites was explained to the patient. Ice packs were offered to the patient for local application in an attempt to reduce pain. After preparing the skin withisopropyl alcohol, the percutaneous injections of botulinum toxin were administered. The following muscles/sites were injected with the corresponding doses: Left orbicularis oculi: 25 units divided in 2 sites. Left Nasalis: 10 units divided in 2 sites. Left house worker: 5 units divided in 1 sites. Right orbicularis oculi: 10 units divided in 2 sites. right Nasalis: 5 units divided in 2 sites. Right house worker: 5 units divided in 1 sites. Total dose administered: 60 Units of botulinum toxin A. Total amount discarded due to unavoidable wastage: 40 Units of botulinum toxin A. Diluent used: Normal saline. Dilution ratio: [100 Units/1 mL]; i.e. [1: 1] dilution. Orbicularis oculi: Guidance used: Electromyographic guidance (needle EMG guidance and electrical stimulation) was not necessary and not used for any of the sites. Post-procedure status: No immediate complications were noted and a total of less than 1-2 drops of blood loss was noted at the sites of injections. The patient stabilized immediately after the procedure but reported no new symptoms other than mild pain at the site of injections. The patient was observed for 10 minutes and discharged in stable condition. The patient expressed no further unaddressed questions/concerns about the procedure today. Follow-up: Patient asked to call in 2 days to report any concerns/complications. The patient will be following up in clinic in 3-4 weeks to assess progress. The patient has our contact information has our contact information and has been advised to stay in touch with us regarding any other issues that may arise. 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, psychotic disturbance, mood disturbance, or anxiety (HCC)- Primary 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 documented in this encounter Administered Medications Inactive Administered Medications - up to 3 most recent administrations Medication Order MAR Action Action Date Dose Rate Site onabotulinumtoxinA (Botox) injection 100 Units 100 Units, IntraMUSCULAR, ONCE, 1 dose, On Sun02/04/25 at 1400Indications: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
--- OUTSIDE RECORDS SUMMARY | 2025-02-11 15:45 | XMS_ITS | Encounter Summary ---
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) Social History Tobacco Use Types Packs/Day Years Used Date Smoking Tobacco: Never Assessed Comments No Sex and Gender Information Value Date Recorded Sex Assigned at Not on file 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 Gender Identity Not on file Sexual Orientation Not on file documented as of this encounter Plan of Treatment Pending Results Name Type Priority Associated Diagnoses Date /Time [facility] Miscellaneous Testing Lab Routine Alzheimer's disease with early onset (CODE) (H) 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) 02/04/2025 2:21 PM CDT documented as of this encounter Procedures Procedure Name Priority Date/Time Associated Diagnosis Comments [facility] MISCELLANEOUS TEST Routine 02/04/2025 2:21 PM [...] another medical condition without behavioral disturbance (H) [place] MISCELLANEOUS TEST Routine 02/04/2025 2:21 PM CDT [...] another medical condition without behavioral disturbance (H) documented in this encounter Results * [facility]; Thyroid Function Alfalfa, Serum [facility] Miscellaneous Test (02/04/2025 2:21 PM CDT) [facility] Result SEE NOTE 02/06/2025 1:30 PM CDT [facility] Comment: Test Result Flag Unit RefValue Thyroid Function Alfalfa, S TSH, Sensitive, S 1.4 mIU/L 0.3-4.2 Test Performed by: [facility] [address] [facility], [place] [address] Photolith Operator: Sweetie Meneses Ph.D.; CLIA# [id number] Blood STRUCTURE OF RIGHT UPPER LIMB / Unknown Venipuncture / Unknown 02/04/2025 2:21 PM CDT 02/04/2025 2:22 PM CDT Tunde Mckenzie MD LAB - BLOOD ORDERABLES Final R esult [facility] [address] [place] [address], [facility] [phone] * [facility] Miscellaneous Testing (02/04/2025 2:21 PM CDT) Miscellaneous Test Result COMMENT 02/10/2025 6:07 PM CDT [facility] Comment: Test Ordered: [id number] Test(s) [id number] was developed and its performance characteristics determined by [facility]. It has not been cleared or approved by the Food and Drug Administration. p-jly010 0.40 [H ] pg/mL 01 Reference Range: 0.00-0.18 Clinical cutoff value was established using samples from a patient cohort characterized with amyloid PET data. A p-shf493 value of >0.18 is a reported surrogate marker for beta amyloid pathology, and can be used to facilitate biological identification of Alzheimer's disease (1). p-jsb323 has also been used in clinical trials to monitor patients on anti-amyloid therapy (2,3). Test performed by [employer] chemiluminescent enzyme immunoassay (CLEIA). Values obtained with different methods cannot be used interchangeably. The validated limit of quantification is 0.06 pg/mL. Assay detection limit is 0.03 pg/mL. Footnotes Comment 01 1. Vladimir Harris et al. Diagnostic Accuracy of a Plasma Phosphorylated Tau 217 Immunoassay for Alzheimer Disease Pathology. [facility] neurology (2023). 2. Vladimir Harris et al. Differential roles of A42/40, p-yzv535 and p-bxq281 for Alzheimer's trial selection and disease monitoring. Nature medicine 28.12 (2021): 7035-2110. 3. Mickey JEAN, Maia M, [place], et al. Association of Donanemab Treatment With Exploratory Plasma Biomarkers in Early Symptomatic Alzheimer Disease: A Secondary Analysis of the TRAILBLAZER-ALZ Randomized Clinical Trial. [facility] Neurol. 2021;79(12):7093-6921. Blood STRUCTURE OF RIGHT UPPER LIMB / Unknown Venipuncture / Unknown 02/04/2025 2:21 PM CDT 02/04/2025 2:22 PM CDT Narrative [facility] - 02/10/2025 6:07 PM CDT Performed At: 01 [facility] [address] [place] [address], [place] [id number] Dioni Dow MD Ph:[phone] Performed At: [address] [facility] [id number] Kylah Mabry MD Ph:[phone] Tunde Mckenzie MD LAB - BLOOD ORDERABLES Final R esult [facility] [address] [phone] * [facility]; [id number]; Phosphorylated Tau 217 (pTau-217), Plasma (Laboratory Miscellaneous Order) (02/04/2025 2:21 PM CDT) Specimen Status Specimen received. Reordered and sent to performing laboratory. Report to follow upon completion. [facility] 02/04/2025 3:09 PM CDT [facility] Performing Laboratory [facility] 02/04/2025 3:09 PM CDT [facility] Test Name Phosphorylated Tau 217 (pTau-217), Plasma [facility] 02/04/2025 3:09 PM CDT [facility] Test Code [id number] [facility] 02/04/2025 3:09 PM CDT [facility] Blood STRUCTURE OF RIGHT UPPER LIMB / Unknown Venipuncture / Unknown 02/04/2025 2:21 PM CDT 02/04/2025 2:22 PM CDT Tunde Mckenzie MD LAB - BLOOD ORDERABLES Final R esult LABORATORY [facility] [address] Lab (1st floor, no room number) [place] [address] * [facility]; THSCM; Thyroid Function Alfalfa, Serum (Laboratory Miscellaneous Order) (02/04/2025 2:21 PM CDT) Specimen Status Specimen received. Reordered and sent to performing laboratory. Report to follow upon completion. [facility] 02/04/2025 8:10 PM CDT [facility] Performing Laboratory [facility] 02/04/2025 8:10 PM CDT [facility] Test Name Thyroid Function Alfalfa, Serum [facility] 02/04/2025 8:10 PM CDT [facility] Test Code THSCM [facility] 02/04/2025 8:10 PM CDT [facility] Blood STRUCTURE OF RIGHT UPPER LIMB / Unknown Venipuncture / Unknown 02/04/2025 2:21 PM CDT 02/04/2025 2:22 PM CDT Tunde Mckenzie MD LAB - BLOOD ORDERABLES Final R esult [facility] [address] Lab (1st floor, no room number) [place] [phone], [facility] * [facility]; [id number]; ATN Profile (Laboratory Miscellaneous Order) (02/04/2025 2:21 PM CDT) Specimen Status Specimen received. Reordered and sent to performing laboratory. Report to follow upon completion. [facility] 02/04/2025 2:55 PM CDT [facility] Performing Laboratory [facility] 02/04/2025 2:55 PM CDT [facility] Test Name ATN Profile [facility] 02/04/2025 2:55 PM CDT [facility] Test Code [id number] [facility] 02/04/2025 2:55 PM CDT [facility] Blood STRUCTURE OF RIGHT UPPER LIMB / Unknown Venipuncture / Unknown 02/04/2025 2:21 PM CDT 02/04/2025 2:22 PM CDT Tunde Mckenzie MD LAB - BLOOD ORDERABLES Final R esult [facility] [address] Lab (1st floor, no room number) [place] [address], [facility] * Apolipoprotein E Genotyping, Alzheimer Disease Risk [...] in the APOE gene at codons 130 ([id number]) and 176 (uc0516). The e3 allele (Cysteine at 130 and [...] developed and its performance characteristics determined by [facility]. It has not been cleared or approved by the US Food and Drug Administration. This test was performed in a CLIA certified laboratory and is intended for clinical purposes. Counseling and informed consent are recommended for genetic testing. Consent forms are available online. Performed By: [facility] [address] [place] [address] Mac Developer: Sd Garcia MD, PhD CLIA Number: [id number] Blood STRUCTURE OF RIGHT UPPER LIMB / Unknown Venipuncture / Unknown 02/04/2025 2:21 PM CDT 02/04/2025 2:22 PM CDT us Tunde Mckenzie MD LAB - BLOOD ORDERABLES Final R esult [facility] [address] [place] [phone], [facility] [phone] * Folate (02/04/2025 2:21 PM CDT) Folic Acid 15.3 4.6 - 34.8 ng/mL 02/04/2025 11:17 PM CDT [facility] Blood STRUCTURE OF RIGHT UPPER LIMB / Unknown Venipuncture / Unknown 02/04/2025 2:21 PM CDT 02/04/2025 2:22 PM CDT us Tunde Mckenzie MD LAB - BLOOD ORDERABLES Final R esult [facility] Lab [address] [facility], [address] [phone] * Vitamin B12 (02/04/2025 2:21 PM CDT) Vitamin B12 449 232 - 1,245 pg/mL 02/05/2025 3:43 PM CDT [facility] Blood STRUCTURE OF RIGHT UPPER LIMB / Unknown Venipuncture / Unknown 02/04/2025 2:21 PM CDT 02/04/2025 2:22 PM CDT us Tunde Mckenzie MD LAB - BLOOD ORDERABLES Final R esult LABORATORY [facility] Lab [address] [place] [address], [address] [phone] documented in this encounter Visit Diagnoses Diagnosis Alzheimer's disease with early onset (CODE) (H)- Primary 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
--- OUTSIDE RECORDS SUMMARY | 2025-02-11 15:45 | XMS_ITS | Encounter Summary ---
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 Procedures [facility] PROCEDURE APPOINTMENT Tunde Mckenzie MD [address] [facility] [address] [place] [address] Phone: tel: fax: Referral ID Status Reason Start Date Expiration Date Visits Re quested Visits Authorized [id number] Open 01/06/2025 1 1 Y OPERATOR * Radiology Services (Routine) - Authorized Specialty Diagnoses / Procedures Referred By Contcole t Referred To Contact Imaging Outside Facility Diagnoses 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 [place] [phone] Tunde Mckenzie MD [address] [place] [address] [place] [id number] Mild early onset Alzheimer's dementia without behavioral [...] Sex Assigned at Female 10/02/2024 8:35 PM SPRAY OPERATOR Legal Sex Female 11:32 AM SPRAY OPERATOR Gender Identity Female 10/02/2024 8:35 PM SPRAY OPERATOR Sexual Orientation Straight 10/02/2024 8: 35 PM SPRAY OPERATOR documented as of this encounter Last Filed Vital Signs Vital Sign Reading Time Taken Comments Blood Pressure - - Pulse - - Temperature - - Respiratory Rate - - Oxygen Saturation - - Inhaled Oxygen Concentration - - Weight 49.9 kg (110 lb) 01/06/2025 3:05 PM SPRAY OPERATOR Height 154.9 cm (5' 1) 01/06/2025 3:05 PM SPRAY OPERATOR Body Mass Index 20.78 01/06/2025 3:05 PM SPRAY OPERATOR documented in this encounter Patient Instructions * Patient Instructions* Tunde Mckenzie MD - 01/06/2025 3:15 PM SPRAY OPERATOR 1. Labs when possible. 2. PET scan when possible. 3. Neuropsychological evaluation when possible. 4. See Dr. Mckenzie back when all of the above are completed. 5. See Dr. Mckenzie for Botox injections 12 weeks after the original series in October 2024. The resources listed below are helpful for patients/families of patients who suffer from dementia. Alzheimer's Association Phone: website: www.alz.org/about The Alzheimer's Association is a nonprofit group offering information and support services to people with Alzheimer's Disease and their caregivers and families. The Alzheimer's Association also sponsors research. Call or visit their web site to find out where to get help in your area. [employer] Phone: website: https://eldercare.STEARCLEAR.gov/ The [employer] helps families find resources in their community, such as home care, adult day care, and nursing homes. The [employer] is a service of the Administration on Aging. Contact them to learn about services in your area. For Home Safety Tips, Go to website: https://www.yusef.nih.gov/health/safety/bttsdnrknt-dtspqvnoui-ewzh-safety-tips Y OPERATOR Y OPERATOR documented in this encounter Progress Notes * Tunde Mckenzie MD - 01/06/2025 3:15 PM CST History of Present Illness: Gilda is a pleasant 84-year-old woman who presents for follow-up regarding hemifacial spasms, trigeminal neuralgia, and cognitive concerns. Hemifacial Spasms: She received Botox injections on November 12, which provided significant relief.The spasms resolved within 2-3 weeks post-injection. There is a mild eyelid droop on the left, but no significant side effects. Given the effectiveness of Botox, the plan is to continue injections every 12 weeks, with a slight dose reduction on the left side to minimize the eyelid droop. Trigeminal Neuralgia: Well-controlled with oxcarbazepine (Trileptal) 150 mg twice daily. The patient reports no breakthrough pain. Medication will be continued at the current dosage. Cognitive Concerns: Over the past year, she has experienced increasing difficulty with memory and daily tasks. Recent cognitive assessments show: SLUMS score: 16/30 FAQ IADL score: 16, indicating moderate difficulty with activities of daily living. Imaging revealsmild global brain atrophy, particularly in the frontal region, consistent with age-related changes but requiring further evaluation to rule out neurodegenerative conditions such as Alzheimer's disease. Neurological Examination: Mental Status: Alert, cooperative, but with noticeable cognitive deficits. Cranial Nerves: Mild left eyelid droop; otherwise, intact. Motor: Normal strength, no focal weakness. Reflexes: Symmetric, no pathological reflexes. Sensation: Intact. Coordination: No dysmetria. Gait: Normal; independent ambulation without assistance. Assessment and Plan: A. Hemifacial Spasms: Continue Botox injections every 12 weeks. Reduce left-side dose slightly to minimize eyelid droop. B. Trigeminal Neuralgia: Continue Trileptal 150 mg twice daily. No medication adjustments needed at this time. C. Cognitive Concerns: Reduced slums and IADL scores. - Definitely needs to be investigated given the last year of declining cognitive function. - History is suggestive of evolving Alzheimer's disease. - Brain MRI does not show other causes of dementia. Patient does have a history of atrial fibrillation and is on Coumadin, but no large frontal or left Joselo cortical strokes are noted to point towards difficulty with calculations and other problems building up in the last year. -Review of medical chart does not show any causes of dementia as well. Plan: Order formal neuropsychological testing for detailed cognitive assessment. Perform blood work, including B12, thyroid function tests, and metabolic panel. Consider amyloid PET scan to evaluate for Alzheimer???s disease. Discuss potential disease-modifying therapies if evidence of Alzheimer's is found. D. Follow-up: Return in 12 weeks for repeat Botox injections. Follow-up on cognitive workup results and adjust management accordingly. We have discussed the above details with Ms. Lr at length and together we feel that this is an appropriate path of care. She is satisfied with this conversation and has no further questions at this time. She is to contact the clinic with any questions or concerns. Tunde Mckenzie MD Neurologist, [facility] 3:50 PM 01/06/2025 This note will be shared with the patient and any medical providers as directed by them. Please excuse any typographical errors, as this note was generated using a Voice Recognition Software. I spent 52 minutes on the date of the encounter [...] has had no falls in calendar year Dementia Cognitive Assessment Done Slums: FAQ: 16. 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, psychotic disturbance, mood disturbance, or anxiety (HCC) Expected: 01/06/2025, Expires: 01/06/2026 VITAMIN B12 WITH FOLATE ([facility]) Lab Routine 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, psychotic disturbance, mood disturbance, or anxiety (HCC) Expected: 01/06/2025, Expires: 01/06/2026 THYROID CASCADE PROFILE ([facility]) Lab Routine 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, psychotic disturbance, mood disturbance, or anxiety (HCC) Expected: 01/06/2025, Expires: 01/06/2026 Scheduled Referrals Name Type Priority Associated Diagnoses Orde r Schedule REFERRAL PET SCAN - OUTSIDE FACILITY Referral Routine 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
--- OUTSIDE RECORDS SUMMARY | 2025-02-11 15:45 | XMS_ITS | Clinical Summary ---
Author Organization [employer] [facility] Address [address] [place] [id number] Care Team Providers Care Natural Fabricator Name Role Phone Pretty Hernandez MD Primary Care Prov ider [facility] Care, [place] Unavailable Allergies Active Allergy Reactions Criticality Noted Date Comments Zolpidem Other - Describe In Comment Field 09/09/2018 Bad dreams Celecoxib GI Upset Medium 09/11/2022 Gabapentin Hives 09/05/2024 Hydrochlorothiazide Other - Describe In Comment Field 04/10/2017 Hyponatremia Carbamazepine Other - Describe In Comment Field 04/10/2017 Nausea and vomiting Lightheaded Tizanidine Diarrhea Medium 06/15/2020 Medications acetaminophen (TYLENOL EXTRA STRGTH) 500 mg tabletIndications :Primary osteoarthritis of left knee Take 2 Tablets (1,000 mg) by mouth 3 times daily if needed for Pain. Max acetaminophen dose: 4000mg in 24 hrs. 0 021 Active fluorometholone (FML) 0.1 % ophthalmic suspension APPLY 1 DROP TO BOTH EYES UP TO THREE TIMES DAILY NEEDED 021 Active meclizine (ANTIVERT) 25 mg tabletIndications :Labyrinthitis, unspecified laterality Take 1 Tablet (25 mg) by mouth 3 times daily if needed for Vertigo. You may only need one dose at bedtime. 30 Tablet 3 023 Active omeprazole (PRILOSEC) 20 mg Delayed-Release capsuleIndication s:Gastroesophagea l reflux disease with esophagitis without hemorrhage TAKE ONE CAPSULE BY MOUTH ONE TIME DAILY before a meal. 90 Capsule 3 024 Active OXcarbazepine (TRILEPTAL) 150 mg tabletIndications :trigeminal neuralgia Take 150 mg by mouth two times daily. 024 Active metoprolol tartrate (LOPRESSOR) 50 mg tabletIndications :Essential hypertension Take 1 Tablet (50 mg) by mouth two times daily. 60 Tablet 5 024 Active losartan (COZAAR) 100 mg tabletIndications :Essential hypertension Take 1 Tablet (100 mg) by mouth once daily. 90 Tablet 3 024 Active montelukast (Singulair) 10 mg tabletIndications :Chronic non-seasonal allergic rhinitis Take 1 Tablet (10 mg) by mouth at bedtime. 90 Tablet 3 024 Active terazosin (HYTRIN) 1 mg capsuleIndication s:Essential hypertension Take 1 Capsule (1 mg) by mouth at bedtime. 90 Capsule 3 024 Active sertraline (ZOLOFT) 50 mg tabletIndications :JANETH (generalized anxiety disorder) Take 1 Tablet (50 mg) by mouth once daily in the morning. 90 Tablet 3 024 Active polyethylene glycoL (MIRALAX) 17 gram/scoop powderIndications :Chronic constipation Mix 1 scoop (17 g) in liquid then take by mouth once daily. Take a second scoop in evening as needed for additional constipation. 1700 g 3 024 Active triamcinolone 0.1 % ointmentIndicatio ns:Lichen sclerosus et atrophicus APPLY TOPICALLY TO AFFECTED AREA(S) TWO TIMES A DAY NEEDED. 80 g 2 024 Active warfarin (COUMADIN) 1 mg tabletIndications :Persistent atrial fibrillation (HC),Anticoagulat ion monitoring, INR range 2-3 Take by mouth 2 mg (1 mg x 2) every day in the evening OR as directed. 182 Tablet 025 Active warfarin (COUMADIN) 1 mg tabletIndications :Persistent atrial fibrillation (HC),Anticoagulat ion monitoring, INR range 2-3,New onset atrial fibrillation (HC) Take by mouth 01/08: Hold; 01/09: Hold; 15: 2 mg; 16: 1 mg; 217: 2 mg; Otherwise 2 mg every Sun, Tue, Fri; 3 mg all other days in the evening OR as directed 025 2024 Discontinued(O ther - add note to specify (E-cancel not sent)) warfarin (COUMADIN) 1 mg tabletIndications :Persistent atrial fibrillation (HC),Anticoagulat ion monitoring, INR range 2-3 Take by mouth 01/14: 2 mg; /20: 2 mg; Otherwise 2 mg every Sun, Tue, Fri; 3 mg all other days 025 2024 Discontinued(R eorder (E-cancel not sent)) warfarin (COUMADIN) 1 mg tabletIndications :Persistent atrial fibrillation (HC),Anticoagulat ion monitoring, INR range 2-3 Take by mouth 01/17: 2 mg; 01/18: 1 mg; 01/19: 2 mg; Otherwise 2 mg every Sun, Tue, Fri; 3 mg all other days in the evening OR as directed 025 2024 Discontinued(O ther - add note to specify (E-cancel not sent)) warfarin (COUMADIN) 1 mg tabletIndications :Persistent atrial fibrillation (HC),Anticoagulat ion monitoring, INR range 2-3 Take by mouth 2 mg (1 mg x 2) every day 025 2024 Discontinued(R eorder (E-cancel not sent)) warfarin (COUMADIN) 1 mg tabletIndications :Persistent atrial fibrillation (HC),Anticoagulat ion monitoring, INR range 2-3 Take by mouth 2 mg (1 mg x 2) every day in the evening OR as directed 025 2024 Discontinued Active Problems Problem Noted Date Diagnosed Date Depression, recurrent 10/22/2024 Anticoagulation monitoring, INR range 2-3 2023 Persistent atrial fibrillation 11/30/2023 Uncomplicated alcohol dependence 03/20/2023 [...] Date Type Department Care Team Description 02/11/2025 Nurse Triage [facility] [address] [place] [address] VotelZackary MD Confusion (Mixed up her meds this am. Not sure what she took. Go to /ER now. Hx of alzheimer's) 02/06/2025 11:30 AM CDT Home Care Visit [facility] [address] [place] [address] Maribell Muller RN SN - OASIS DISCHARGE 02/06/2025 Refill [facility] [address] [place] [address] Pretty Hernandez MD Refill Request (Warfarin) 02/06/2025 Telephone [facility] [address] [place] [address] Pretty Hernandez MD POLST 02/03/2025 12:30 PM CDT Home Care Visit [facility] [address] [place] [address] Maribell Muller, RN SN - HOME VISIT 02/03/2025 10:45 AM CDT Home Care Visit [facility] [address] [place] [phone] Vlad Frank, PLACEMENT INTERVIEWER PLACEMENT INTERVIEWER - DISCIPLINE DISCHARGE 02/03/2025 8:30 AM CDT Home Care Visit [facility] [address] [place] [phone] Elaine Aguirre OT OT - DISCIPLINE DISCHARGE 02/03/2025 Anticoagulation (warfarin) [facility] [address] [place] [address] 1, [facility] Anticoagulation (Home care) 02/03/2025 Telephone [facility] [address] [place] [phone] Vlad Frank, PLACEMENT INTERVIEWER Home Care (Request for Outpatient Speech Therapy Orders ) 01/27/2025 10:30 AM GRIEVANCE COORDINATOR Home Care Visit [facility] [address] [place] [phone] Mecca Salomon COTA OT - HOME VISIT 01/27/2025 9:30 AM GRIEVANCE COORDINATOR Home Care Visit [facility] [address] [place] [phone] Vlad Frank, YASMIN PLACEMENT INTERVIEWER - HOME VISIT 01/27/2025 8:30 AM GRIEVANCE COORDINATOR Home Care Visit [facility] [address] [place] [phone] Maribell Muller, RN SN - HOME VISIT 01/27/2025 Telephone [facility] [address] [place] [phone] Vlad Frank, PLACEMENT INTERVIEWER Home Care (Request for outpatient speech therapy orders ) 01/27/2025 Anticoagulation (warfarin) [facility] [address] [place] [address] 1, [facility] Anticoagulation (Home care) 01/23/2025 8:30 AM GRIEVANCE COORDINATOR Home Care Visit [place] [id number] [place] [phone] Maribell Muller RN SN - HOME VISIT 01/23/2025 Anticoagulation (warfarin) [facility] [address] [place] [address] 1, [facility] Anticoagulation ([facility]) 01/21/2025 1:45 PM GRIEVANCE COORDINATOR Home Care Visit [address] [phone] Vlad Frank, PLACEMENT INTERVIEWER PLACEMENT INTERVIEWER - INITIAL ASSESSMENT 01/20/2025 12:00 PM GRIEVANCE COORDINATOR Home Care Visit [address] [phone] Mecca Salomon COTA OT - HOME VISIT 01/20/2025 11:00 AM GRIEVANCE COORDINATOR Home Care Visit [address] [phone] Natasha Jimenez LPN DARKROOM WORKER - HOME VISIT 01/20/2025 Anticoagulation (warfarin) [facility] [address] [place] [address] 1, [facility] Anticoagulation (Home care) 01/16/2025 9:00 AM GRIEVANCE COORDINATOR Home Care Visit [address] [phone] Natasha Jimenez LPN DARKROOM WORKER - HOME VISIT 01/16/2025 Anticoagulation (warfarin) [facility] [address] [place] [address] 1, [facility] Anticoagulation 01/13/2025 10:00 AM GRIEVANCE COORDINATOR Home Care Visit [address] [phone] Kamala Rogers LISW HOUSEKEEPER NANNY - INITIAL ASSESSMENT 01/13/2025 9:00 AM GRIEVANCE COORDINATOR Home Care Visit [address] [place] [address] Maribell Muller, LISA SN - HOME VISIT 01/13/2025 Anticoagulation (warfarin) [facility] [address] [place] [address] 1, [facility] Anticoagulation ([facility]) 01/13/2025 Orders Only [facility] [address] [place] [address] Pretty Hernandez MD Lab 01/13/2025 Telephone [facility] [address] [place] [address] Maribell Muller RN Home Care 01/13/2025 Orders Only [facility] [address] [place] [address] Pretty Hernandez MD Lab (Home care) 01/12/2025 10:30 AM GRIEVANCE COORDINATOR Home Care Visit [facility] [address] [place] [address] Elaine Aguirre, OT OT - REASSESSMENT 01/12/2025 Telephone [facility] [address] [place] [address] Pretty Hernandez MD FYI 01/10/2025 Telephone [facility] [address] [place] [address] Pretty Hernandez MD Anticoagulation (INR result) 01/09/2025 11:00 AM GRIEVANCE COORDINATOR Home Care Visit [facility] [address] [place] [phone] Nora Acevedo, PT PT - DISCIPLINE DISCHARGE 01/08/2025 10:00 AM GRIEVANCE COORDINATOR Home Care Visit [facility] [address] [place] [phone] Maribell Muller, LISA SN - HOME VISIT 01/08/2025 Orders Only [facility] [address] [place] [address] Heather Abad NP <No scans attached> 01/08/2025 Telephone [facility] [address] [place] [address] Pretty Hernandez MD Anticoagulation (Dosing approval for INR >5) 01/08/2025 Anticoagulation (warfarin) [facility] [address] [place] [address] 1, [facility] Anticoagulation 01/08/2025 Orders Only [facility] [address] [place] [address] Pretty Hernandez MD Lab 01/08/2025 Orders Only [facility] [address] [place] [address] Pretty Hernandez MD Lab (Home care) 01/06/2025 9:00 AM GRIEVANCE COORDINATOR Home Care Visit [facility] [address] [place] [address] Mecca Salomon COTA OT - HOME VISIT 01/05/[address] [place] [address] David Baig MD Results (Zio monitor) 01/02/2025 12:15 PM GRIEVANCE COORDINATOR Home Care Visit [facility] [address] [place] [address] Nora Acevedo, PT PT - HOME VISIT 01/01/2025 9:00 AM GRIEVANCE COORDINATOR Home Care Visit [facility] [address] [place] [address] Natasha Jimenez LPN DARKROOM WORKER - HOME VISIT 01/01/2025 Anticoagulation (warfarin) [facility] [address] [place] [address] 1, [facility] Anticoagulation (Chart update.) 12/31/2024 3:15 PM GRIEVANCE COORDINATOR Office Visit [facility] [address] [place] [address] Krystina Ambrosio, DO Follow Up (chronic follow up; still concerned with neuralgia. ) 12/31/2024 Telephone [facility] [address] [place] [address] Krystina Ambrosio, DO Questions 12/31/2024 Travel 12/30/2024 4:00 PM GRIEVANCE COORDINATOR Home Care Visit [facility] [address] [place] [address] Mecca Salomon COTA OT - HOME VISIT 12/26/2024 11:00 AM GRIEVANCE COORDINATOR Office Visit [address] [place] [address] Daivd Baig MD Follow Up (Gen Card F/u. Pt seen by Dr. Serrato 01/2024. 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 EKG 10/22.//Pt is wearing ZIO currently. //Pt denies sx. Pt wants to discuss meds. //) 12/26/2024 Travel 12/24/2024 9:30 AM GRIEVANCE COORDINATOR Home Care Visit [facility] [address] [place] [phone] Maribell Muller RN SN - HOME VISIT 12/24/2024 8:30 AM GRIEVANCE COORDINATOR Home Care Visit [facility] [address] [place] [phone] Cyndy Galarza PTA PT - HOME VISIT 12/24/2024 Telephone [facility] [address] [place] [phone] Maribell Muller, newspaper delivery counselor 12/23/2024 4:00 PM GRIEVANCE COORDINATOR Home Care Visit [facility] [address] [place] [phone] Mecca Salomon KIMBROUGH OT - HOME VISIT 12/18/2024 Home Care Visit [facility] [address] [place] [address] Maribell Muller, LISA CARE COORDINATION 12/17/2024 2:45 PM GRIEVANCE COORDINATOR Home Care Visit [facility] [address] [place] [address] Maribell Muller, LISA SN - HOME VISIT 12/17/2024 1:30 PM GRIEVANCE COORDINATOR Home Care Visit [facility] [address] [place] [address] Joe Hugo, PT PT - HOME VISIT 12/17/2024 11:30 AM GRIEVANCE COORDINATOR Home Care Visit [facility] [address] [place] [address] Elaine Aguirre, OT OT - INITIAL ASSESSMENT 12/17/2024 Telephone [facility] [address] [address] Maribell Muller RN Home Care 12/17/2024 Travel 12/16/2024 1:15 PM GRIEVANCE COORDINATOR Home Care Visit [facility] [address] [place] [address] Joe Hugo, PT PT - INITIAL ASSESSMENT 12/15/2024 Home Care Visit [facility] [address] [place] [address] Elaine Aguirre, OT CARE COORDINATION 12/13/2024 Anticoagulation (warfarin) [facility] [address] [place] [address] 1, [facility] Anticoagulation (Outside lab) 12/13/2024 Telephone [facility] [address] [place] [address] Pretty Hernandez MD Anticoagulation 12/12/[address] [facility] Scanner 1 scan: (1-Ord) [place] INR, 12/12/2024 12/10/2024 4:30 PM GRIEVANCE COORDINATOR Nurse/Clinic Staff Only [facility] [address] [place] [address] Education (Help with ZIO patch/) 12/10/2024 Travel 12/10/2024 Telephone [facility] [address] [facility] [place] [address] Nicole Morris, newspaper delivery counselor (Need ongoing orders for home health) 12/10/2024 Plan of Care Documentation [facility] [address] [place] [address] 12/09/2024 12:00 PM GRIEVANCE COORDINATOR Home Care Visit [facility] [address] [place] [phone] Nicole Morris, LISA SN - OASIS START OF CARE 12/09/2024 Home Care Visit [facility] [address] [place] [address] Marjorie Salinas, RN CARE COORDINATION 12/08/2024 Home Care Visit [facility] [address] [place] [phone] Marjorie Salinas, RN CARE COORDINATION 12/05/2024 Home Care Visit [facility] [address] [place] [phone] Marjorie Salinas, RN CARE COORDINATION 12/01/2024 9:00 AM GRIEVANCE COORDINATOR Ancillary Procedure [facility] [address] [place] [address] 12/01/2024 Travel 11/29/2024 Anticoagulation (warfarin) [facility] [address] [place] [address] 1, [facility] Anticoagulation (Outside lab) 11/29/2024 Telephone [facility] [address] [place] [address] Pretty Hernandez MD Anticoagulation (Outside lab result) 11/28/2024 1:25 PM GRIEVANCE COORDINATOR Office Visit [facility] [address] [place] [address] Pretty Hernandez MD Follow Up (recheck from 10/22/24) 11/28/2024 8:15 AM GRIEVANCE COORDINATOR Office Visit [address] [place] [address] 11/28/2024 Orders Only [facility] Scanner 1 scan: (1-Ord) [facility], INR, 11/28/2024 11/28/2024 Travel 11/15/2024 Anticoagulation (warfarin) [facility] [address] [place] [address] 1, [facility] Anticoagulation (Outside lab ) 11/15/2024 Telephone [facility] [address] [place] [address] Pretty Hernandez MD Anticoagulation (Lab results ) 11/14/2024 Orders Only [facility] Scanner 1 scan: (1-Ord) [place], PT INR, 11/14/2024 11/14/2024 Orders Only [facility] Scanner 1 scan: (1-Ord) [place], INR, 11/14/2024 from Last 3 Months Immunizations Immunization Administration Dates Next Due AMB Influenza, IIV3 (Age >=3 years)(Flu Clinic Only) 09/15/2008 COVID-19 vaccine (Pfizer-Bio NTech 30mcg/0.3mL) 12YO+ MAYRA-SUCROSE PF, MDV 04/03/2022 COVID-19 vaccine (Pfizer-Bio NTech 30mcg/0.3mL) PF, MDV 09/29/2021,02/08/2021,01/18/2021 Influenza RIV4 (Age 18+ Year s) PRESERV FREE 09/22/2019 Influenza Virus, Unspecified 09/04/2020, 09/22/2019,09/26/2018,2007,10/13/2006,09/13/2005,09/18/2003 Influenza, High-dose Inactivated 024,10/02/2018,10/04/2017,2015 Influenza, High-dose Quadriv alent Inactivated 09/24/2023,09/30/2022,10/03/2021,2019 Influenza, [...] Never Smokeless Tobacco: Never Tobacco Cessation:Counseling Given: No Alcohol Use Standard Drinks/Week Comments Not Currently 0 (1 standard drink = 0.6 oz pur e alcohol) PHQ-2 Answer Date Recorded PHQ-2 TOTAL SCORE 1 10/22/2024 Social Connections Answer Date Recorded Do you often feel lonely or isolated from those around you? 0 01/01/2025 Financial Resource Strain Answer Date R ecorded Difficulty of Paying Living Expenses 3 01/01/2025 Difficulty of Paying Living Expenses Not on file 01/01/2025 Food Insecurity Answer Date Recorded Do you worry your food will run out before you are able to buy more? 1 01/01/2025 Transportation Needs Answer Date Record ed Does lack of transportation keep you from medica l appointments? 1 01/01/2025 Does lack of transportation keep you from work, meetings or getting things that you need? 1 01/01/2025 Housing Stability Answer Date Recorded What is your housing situation today? 1 01/01/2025 Utilities Answer Date Recorded Do you have trouble paying f or utilities (for example, heat, electricity, water, phone)? 1 01/01/2025 Comments No Sex and Gender Information Value Date Recorded Sex Assigned at Not on file Legal Sex Female 5:25 AM GRIEVANCE COORDINATOR Gender Identity Not on file Sexual Orientation Not on file Occupation Industry Job Start Date Job End Date retired Not on file Not on file Not on file Obstetrics History Para Term AB IAB SAB Ectopic Multiple Livin g Live Births 3 3 3 0 0 0 0 0 3 Date Outcome GA Total Labor Labor/2nd/3rd Weight Sex Type Anes PTL Yarelis A1 A5 Name Clin Term Term Term Last Filed Vital Signs Vital Sign Reading Time Taken Comments Blood Pressure 170/102 02/06/2025 11:23 AM CDT Pulse 63 02/06/2025 11:22 AM CDT Temperature 36.2 C (97.1 F) 02/06/2025 11:22 AM CDT Respiratory Rate 18 02/06/2025 11:22 AM CDT Oxygen Saturation 97% 02/06/2025 11:22 AM CDT Inhaled Oxygen Concentration - - Weight 51.4 kg (113 lb 6.4 oz) 01/12/2025 11:26 AM GRIEVANCE COORDINATOR Height 154.9 cm (5' 1) 12/26/2024 10:54 AM GRIEVANCE COORDINATOR Body Mass Index 21.43 12/26/2024 10:54 AM GRIEVANCE COORDINATOR Plan of Treatment Health Maintenance Due Date Last Done Comments RSV vaccine for adults or (1 - 1-dose 75+ series) 2016 COVID-19 vaccine series ( season) 2025 10/15/2024, 09/24/2023, 09/30/2022, Additional history exists Depression screening for age 12+ 10/22/2025 10/22/2024, 03/02/2023, 10/13/2021, Additional history exists Medicare Wellness for age 65+ 10/23/2025, 03/02/2023, 10/12/2021, Additional history exists BMI (ht and wt on same day) for age 18+ 12/26/2025 12/26/2024, 03/18/2024, 03/02/2023, Additional history exists Tetanus booster 08/02/2033 08/02/2023, 05/26, 04/27/2006 DEXA/DXA scan for age 65+ Completed 05/30/2009 Pneumococcal series for age 50+ Completed 10/04/2017, 10/08/2014, 09/29/1999 Zoster (shingles) series for age 50+ Completed 09/15/2019, 07/07/2019, 10/08/2012 Tdap Completed 08/02/2023, 06/07/2012 Influenza Vaccine Completed 10/10/2024, , 09/04/2020, Additional history exists Procedures Procedure Name Priority Date/Time Associated Diagnosis Comments INR,POCT Routine 02/03/2025 12:42 PM CDT INR,POCT Routine 01/27/2025 9:04 AM GRIEVANCE COORDINATOR INR,POCT Routine 01/23/2025 INR,POCT Routine 01/20/2025 INR,POCT Routine 01/16/2025 PROTIME-INR Routine 01/13/2025 10:02 AM GRIEVANCE COORDINATOR Anticoagulation monitoring, INR range 2-3 PROTIME-INR Routine 01/08/2025 10:40 AM GRIEVANCE COORDINATOR Anticoagulation monitoring, INR range 2-3 SCAN-LABORATORY REPORT 12/12/2024 12:00 AM GRIEVANCE COORDINATOR INR,POCT Routine 12/12/2024 ECHO TTE COMPLETE WO CONTRAST Routine 12/01/2024 9:58 AM GRIEVANCE COORDINATOR Chronic atrial fibrillation (HC) Anticoagulation monitoring, INR range 2-3 Atrial flutter, unspecified type (HC) HTN (hypertension) EXTENDED HOLTER Routine 12/01/2024 Chronic atrial fibrillation (HC) Anticoagulation monitoring, INR range 2-3 Atrial flutter, unspecified type (HC) HTN (hypertension) SCAN-LABORATORY REPORT 11/28/2024 12:00 AM GRIEVANCE COORDINATOR INR,POCT Routine 11/28/2024 INR,POCT Routine 11/14/2024 2:32 PM GRIEVANCE COORDINATOR SCAN-LABORATORY REPORT 11/14/2024 12:00 AM GRIEVANCE COORDINATOR SCAN-LABORATORY REPORT 11/14/2024 12:00 AM GRIEVANCE COORDINATOR from Last 3 Months Results * (ABNORMAL) INR,POCT (02/03/2025 12:42 PM CDT) Only the most recent of8 resultswithin the time period is included. INR 1.9(EXTERNA L) 0.0 - 1.2 [facility] Blood BLOOD SPECIMEN / Unknown 02/03/2025 12:42 PM CDT us Pretty Hernandez MD LABORATORY Fi nal Result [facility] [employer] [address] [address] * (ABNORMAL) PROTIME-INR (01/13/2025 10:02 AM GRIEVANCE COORDINATOR) Only the most recent of2 resultswithin the time period is included. INR 3.0(H) <1.3 01/13/2025 1:55 PM GRIEVANCE COORDINATOR [facility] PROTIME 35.1(H) 10.6 - 12.4 sec 01/13/2025 1:55 PM GRIEVANCE COORDINATOR [facility] Blood BLOOD SPECIMEN / Unknown Butterfly / Unknown 01/13/2025 10:02 AM GRIEVANCE COORDINATOR 01/13/2025 1:48 PM GRIEVANCE COORDINATOR Narrative [facility] - 01/13/2025 1:55 PM GRIEVANCE COORDINATOR Therapeutic Range 2.0-3.0 for most anticoagulated patients 2.5-3.5 [...] seconds if the patient is on UFH. us Pretty Hernandez MD HEMATOLOGY Fi nal Result [facility] [address] [facility] [place] [address] * SCAN-LABORATORY REPORT (12/12/2024 12:00 AM GRIEVANCE COORDINATOR) Only the most recent of4 resultswithin the time period is included. us Scanner OTHER Final Result * ECHO TTE COMPLETE WO CONTRAST (12/01/2024 9:58 AM GRIEVANCE COORDINATOR) AORTIC VALVE MEAN PG 4 mmHg EJECTION FRACTION 61 % PEAK TR VELOCITY 3.0 m/s LVEDD 3.8 cm EJECTION FRACTION 60 - 65% Anatomical Region Laterality Modality Ultrasound 12/01/2024 9:17 AM GRIEVANCE COORDINATOR Narrative 12/01/2024 10:47 AM GRIEVANCE COORDINATOR ECHOCARDIOGRAM YUNIOR Mirta LR : 1940 84 years Study Date: 12/01/2024 9:17:17 AM Gender: F BP: 139/63 mmHg Height: 152.00 cm BSA: 1.47 m Weight: 52.00 kg Tech: [facility] Referring MD: PRETTY HERNANDEZ Site: [facility] Reading Location: Mobile OP Patient Location: Outpatient. Procedure: 2D, Color Doppler and Spectral Doppler. Indication for study: Chronic atrial fibrillation (HC); Anticoagulation monitoring, INR range 2-3; Atrial flutter, unspecified type (HC); HTN (hypertension) Cardiac Rhythm: Irregular.Study quality: Good. Final Impressions: 1. Normal LV size, normal wall thickness, normal global systolic function with an estimated EF of 60 - 65%. 2. Right ventricular cavity size is mildly enlarged, global systolic RV function is normal. 3. The mitral valve is normal, mild mitral regurgitation. 4. Severely enlarged left atrium. 5. Severe right atrial enlargement. 6. Color Doppler suggests a left to right atrial level shunt. ASD vs PFO. 7. The inferior vena cava is dilated, respiratory size variation greater than 50%. 8. Trivial pericardial effusion. 9. Mildly increased estimated pulmonary pressures by tricuspid regurgitation velocity and right atrial pressure (35 mmHg plus RAP). Chamber Sizes and Function Normal left ventricular size, normal wall thickness, normal global systolic function with an estimated EF of 60 - 65%. No resting regional wall motion abnormality visualized. Left atrial size is severely enlarged. Right ventricular cavity size is mildly enlarged, global systolic RV function is normal. The right atrium is severely enlarged. Right atrial volume index is 73 ml/m . Right atrial area is 26 cm . The pulmonary artery is of normal size and origin. The sinus of Valsalva is normal sized. The ascending aorta is normal sized. Valves, RV Pressures and Diastolic Function The aortic valve is trileaflet, no stenosis and trivial regurgitation. The mitral valve is normal in structure, mild mitral regurgitation. Indeterminate pattern of LV diastolic filling. The tricuspid valve is normal in structure. Tricuspid regurgitation is mild regurgitation. The tricuspid regurgitant velocity is 3.0 m/s, the estimated right ventricular systolic pressure is 35 mmHg plus right atrial pressure. There is mildly increased estimated pulmonary pressure by tricuspid regurgitation velocity and right atrial pressure. The pulmonic valve is normal. Trace pulmonary regurgitation. Masses, Effusion, Shunts There is trivial pericardial effusion. The inferior vena cava is dilated, respiratory size variation greater than 50%. Color flow Doppler suggests a left to right shunt across the interatrial septum. MEASUREMENTS AND CALCULATIONS 2-D Measurements and LV Function: LVID (d) 3.8 cm LVOT diameter 1.9 cm IVS (d) 1.2 cm HR 39 bpm LVPW (d) 1.0 cm LA Vol index 69 ml/m2 Ao Sinus 3.0 cm RA Vol index 73 ml/m2 Asc Ao 3.5 cm RA area 26 cm RV Max 4C (d) 4.9 cm Diastology: Mitral Tissue Doppler E Peak 0.9 m/s e', Septum 0.04 m/s A Peak 0.3 m/s e', Lateral 0.11 m/s E/A 2.5 E/e' Average 11.92 DT 231 msec Aortic Valve: Vmax 1.4 m/s BELTRAN (V) 1.59 cm VTI 0.39 m BELTRAN (I) 1.73 cm LVOT V max 0.8 m/s Max PG 8 mmHg LVOT VTI 0.24 m Mean PG 4 mmHg SV 68 ml Dim Index 0.60 SV index 46 ml/m CO 2.7 l/min CI 1.8 l/min/m Mitral Valve: MVA 3.3 cm MV P 1/2 67 msec Tricuspid Valve and estimated PA pressures: TR Vmax 3.0 m/s TAPSE 1.7 cm TR maxG 35 mmHg Pulmonic Valve: PIEDV 0.9 m/s . This study was interpreted by an [facility] accredited facility. Final Procedure Note Joe Kearney MD - 12/01/2024 ECHOCARDIOGRAM YUNIOR LR : 1940 84 years Study Date: 12/01/2024 9:17:17 AM Gender: F BP: 139/63 mmHg Height: 152.00 cm BSA: 1.47 m Weight: 52.00 kg Tech: [facility] Referring MD: PRETTY HERNANDEZ Site: [facility] Reading Location: Mobile OP Patient Location: Outpatient. Procedure: 2D, Color Doppler and Spectral Doppler. Indication for study: Chronic atrial fibrillation (HC); Anticoagulationmonitoring, INR range 2-3; Atrial flutter, unspecified type (HC); HTN(hypertension) Cardiac Rhythm: Irregular.Study quality: Good. Final Impressions: 1. Normal LV size, normal wall thickness, normal global systolic functionwith an estimated EF of 60 - 65%. 2. Right ventricular cavity size is mildly enlarged, global systolic RVfunction is normal. 3. The mitral valve is normal, mild mitral regurgitation. 4. Severely enlarged left atrium. 5. Severe right atrial enlargement. 6. Color Doppler suggests a left to right atrial level shunt. ASD vsPFO. 7. The inferior vena cava is dilated, respiratory size variation greaterthan 50%. 8. Trivial pericardial effusion. 9. Mildly increased estimated pulmonary pressures by tricuspidregurgitation velocity and right atrial pressure (35 mmHg plus RAP). Chamber Sizes and Function Normal left ventricular size, normal wall thickness, normal globalsystolic function with an estimated EF of 60 - 65%. No resting regionalwall motion abnormality visualized. Left atrial size is severely enlarged.Right ventricular cavity size is mildly enlarged, global systolic RVfunction is normal. The right atrium is severely enlarged. Right atrialvolume index is 73 ml/m . Right atrial area is 26 cm . The pulmonaryartery is of normal size and origin. The sinus of Valsalva is normalsized. The ascending aorta is normal sized. Valves, RV Pressures and Diastolic Function The aortic valve is trileaflet, no stenosis and trivial regurgitation. Themitral valve is normal in structure, mild mitral regurgitation.Indeterminate pattern of LV diastolic filling. The tricuspid valve isnormal in structure. Tricuspid regurgitation is mild regurgitation. Thetricuspid regurgitant velocity is 3.0 m/s, the estimated right ventricularsystolic pressure is 35 mmHg plus right atrial pressure. There is mildlyincreased estimated pulmonary pressure by tricuspid regurgitation velocityand right atrial pressure. The pulmonic valve is normal. Trace pulmonaryregurgitation. Masses, Effusion, Shunts There is trivial pericardial effusion. The inferior vena cava is dilated,respiratory size variation greater than 50%. Color flow Doppler suggests aleft to right shunt across the interatrial septum. MEASUREMENTS AND CALCULATIONS 2-D Measurements and LV Function: LVID (d) 3.8 cm LVOT diameter 1.9 cm IVS (d) 1.2 cm HR 39 bpm LVPW (d) 1.0 cm LA Vol index 69 ml/m2 Ao Sinus 3.0 cm RA Vol index 73 ml/m2 Asc Ao 3.5 cm RA area 26 cm RV Max 4C (d) 4.9 cm Diastology: Mitral Tissue Doppler E Peak 0.9 m/s e', Septum 0.04 m/s A Peak 0.3 m/s e', Lateral 0.11 m/s E/A 2.5 E/e' Average 11.92 DT 231 msec Aortic Valve: Vmax 1.4 m/s BELTRAN (V) 1.59 cm VTI 0.39 m BELTRAN (I) 1.73 cm LVOT V max 0.8 m/s Max PG 8 mmHg LVOT VTI 0.24 m Mean PG 4 mmHg SV 68 ml Dim Index 0.60 SV index 46 ml/m CO 2.7 l/min CI 1.8 l/min/m Mitral Valve: MVA 3.3 cm MV P 1/2 67 msec Tricuspid Valve and estimated PA pressures: TR Vmax 3.0 m/s TAPSE 1.7 cm TR maxG 35 mmHg Pulmonic Valve: PIEDV 0.9 m/s . This study was interpreted by an [facility] accredited facility. Final us Pretty Hernandez MD ECHO ORD Fi nal Result * ZIO PATCH XT - weekly to monthly symptoms. (12/01/2024) 12/01/2024 Narrative Adam Alex MD - 01/05/2025 12:00 AM GRIEVANCE COORDINATOR Agree with Findings. Please see scan document for full report. Signed By Adam Alex MD Procedure Note Adam Alex MD - 01/05/2025 Agree with Findings. Please see scan document for full report. Signed By Adam Alex MD us Pretty Hernandez MD CARDIAC SERVICES [address] Final Result from Last 3 Months Insurance [place] MR PB ONLY MEDICARE PPS [place] HB ONLY Advance Directives Documents on File Type Date Recorded Patient Collar Tacker Expl anation POLST 01/13/2025 * DNR (Latest Code Status on File) Date Activated Date Inactivated Comments 02/06/2025 1:08 PM POLST availabl e in residence reviewed and validated to match our conversation today Care Teams Natural Fabricator Relationship Specialty Start Date End Date Pretty Hernandez MD [address] [place] [address] PCP - General Family Practice [facility] [address] [facility] [place] [id number] 12/04/24
[2025-02-11 16:26] VITALS: BP 215/102; PULSE 63; RESP 16; TEMP 36.7; O2SAT 98; BMI 20.8
--- NOTE | 2025-02-11 17:33 | ED.GENADULT ---
HPI - General Adult General Chief complaint: Unspecified Complaint, Adult Stated complaint: mistakenly took wrong pills Time Seen by Provider: 02/11/25 17:24 History of Present Illness HPI narrative: This 84-year-old female comes in stating that she thinks she took the wrong medicines this morning. She takes various medicines once or twice a day and she is not sure what she did take. This occurred at about 8:00 a.m. this morning, about 9 hours prior to arrival here. She states that she feels normal and is not having any symptoms. She arrives here with normal vital signs except her blood pressure is elevated at 200 15/102. Related Data Home Medications ?Medication ?Instructions ?Recorded ?Confirmed cholecalciferol (vitamin D3) 125 5,000 unit PO 2XW 05/31/22 12/29/24 mcg (5,000 unit) tablet fluorometholone 0.1 % eye 1 drp ophthalmic (eye) TID PRN 05/31/22 12/29/24 drops,suspension losartan 100 mg tablet 100 mg PO HS 05/31/22 12/29/24 meclizine 25 mg tablet 25 mg PO TID PRN 05/31/22 12/29/24 montelukast 10 mg tablet 10 mg PO HS 05/31/22 12/29/24 omeprazole 20 mg capsule,delayed 20 mg PO DAILY 05/31/22 12/29/24 release terazosin 1 mg capsule 1 mg PO HS 05/31/22 12/29/24 triamcinolone acetonide 0.1 % 1 applic topical BID PRN 05/31/22 12/29/24 topical ointment nifedipine 30 mg tablet,extended 30 mg PO DAILY 04/25/23 12/29/24 release 24 hr warfarin 1 mg tablet 2 mg PO DAILY 07/07/24 12/29/24 hydroxyzine HCl 25 mg tablet 25 mg PO Q6H PRN 08/08/24 12/29/24 loratadine 10 mg tablet 10 mg PO HS 08/08/24 12/29/24 (Allerlamin) metoprolol tartrate 75 mg tablet 75 mg PO BID 08/12/24 12/29/24 sertraline 50 mg tablet 50 mg PO QAM 12/29/24 12/29/24 Previous Rx's ?Medication ?Instructions ?Recorded acetaminophen 500 mg capsule 500 - 1,000 mg (1 - 2 x 500 mg) PO 08/12/24 Q6H PRN pain #100 caps carbamazepine 100 mg 100 mg PO BID #60 caps 09/07/24 capsule,extended release [id number] diphenoxylate-atropine 2.5 1 tab PO DAILY PRN diarrhea #5 tabs 09/23/24 mg-0.025 mg tablet (Lomotil) Allergies Allergy/AdvReac Type Severity Reaction Status Date / Time carbamazepine (From Tegretol) AdvReac Verified 12/29/24 10:29 celecoxib (From Celebrex) AdvReac Verified 12/29/24 10:29 hydrochlorothiazide AdvReac Verified 12/29/24 10:29 tizanidine (From Zanaflex) AdvReac Verified 12/29/24 10:29 zolpidem (From Ambien) AdvReac Verified 12/29/24 10:29 Review of Systems Status of ROS: Reports: 10 or more systems reviewed and unremarkable except as noted in History and below Narrative: Constitutional: No fevers, no weight gain or loss. Eyes: No discharge. No vision changes. HENT: No congestion, no sore throat, no ear pain. Cardiovascular: No chest pain, no palpitations. Respiratory: No shortness of breath, no wheezes, no cough. Gastrointestinal: No abdominal pain, no vomiting, no diarrhea. Genitourinary: No dysuria, no hematuria. Musculoskeletal: Normal range of motion. Skin: No rashes, no pruritis. Neurological: No dizziness, weakness, sensory change, speech change. Endo/Heme/Allergies: No bruising or bleeding. No polydipsia. Pysch: no suicidality, no anxiety, no insomnia. All other systems reviewed and are negative. [facility] Medical History Hyponatremia ?E87.1 - Hypo-osmolality and hyponatremia (ICD-10) Uncomplicated alcohol dependence ?F10.20 - Alcohol dependence, uncomplicated (ICD-10) Chronic anticoagulation ?Z79.01 - care home (current) use of anticoagulants (ICD-10) Atrial fibrillation ?I48.91 - Unspecified atrial fibrillation (ICD-10) Bilateral carotid artery disease ?I77.9 - Disorder of arteries and arterioles, unspecified (ICD-10) Trigeminal neuralgia of left side of face ?G50.0 - Trigeminal neuralgia (ICD-10) Vitamin D deficiency ?E55.9 - Vitamin D deficiency, unspecified (ICD-10) Labyrinthitis ?H83.09 - Labyrinthitis, unspecified ear (ICD-10) Fibrocystic breast disease ?N60.19 - Diffuse cystic mastopathy of unspecified breast (ICD-10) Lichen sclerosus et atrophicus ?L90.0 - Lichen sclerosus et atrophicus (ICD-10) Insomnia ?G47.00 - Insomnia, unspecified (ICD-10) CAD (coronary artery disease) ?I25.10 - Atherosclerotic heart disease of habematolel coronary artery without angina pectoris (ICD-10) GERD (gastroesophageal reflux disease) ?K21.9 - Gastro-esophageal reflux disease without esophagitis (ICD-10) Hypertension ?I10 - Essential (primary) hypertension (ICD-10) Arthritis ?M19.90 - Unspecified osteoarthritis, unspecified site (ICD-10) Surgical History History of arthroplasty of right knee (08/12/24) ?Z96.651 - Presence of right artificial knee joint (ICD-10) H/O wisdom tooth extraction ?K08.409 - Partial loss of teeth, unspecified cause, unspecified class (ICD-10) History of cataract extraction with lens replacement H/O exploratory laparotomy ?Z98.890 - Other specified postprocedural states (ICD-10) Hx of vein stripping ?Z98.890 - Other specified postprocedural states (ICD-10) History of appendectomy ?Z90.49 - Acquired absence of other specified parts of digestive tract (ICD-10) Status post left knee replacement (04/21/22) ?Z96.652 - Presence of left artificial knee joint (ICD-10) Family History Mother Stroke Arthritis Father Coronary artery disease Sister Stroke Sister Stroke Aortic aneurysm Social History Narrative: . Lives alone. She has a sister who lives 6 blocks away and can help drive her places. Denies tobacco use. Quit alcohol altogether when diagnosed with afib. What is your current living situation?: I presently have a place to live Problems where you live: no known problems Problems where you live details: steps In the past 12 months, utilities in danger of being shut off: no In past 12 months, lack of transportation kept you from medical appts, meetings, work, or getting things needed for daily living: no In the past 12 mos, have been you worried that your food would run out before you had money to buy more?: never true In the past 12 mos, the food you bought just didn't last and you didn't have money to buy more?: never true Smoking Status: Never smoker Do you use any of these nicotine containing products: None Second hand tobacco smoke exposure: No How often do you have a drink containing alcohol: never AUDIT-C Alcohol total score: 0 Non-prescribed substance use: denies use Caffeine: Yes (5-7) How often does anyone, including family, friends and others, physically hurt you: never How often does anyone, including family, friends and others, insult or talk down to you: never How often does anyone, including family, friends and others, threaten you with harm: never How often does anyone, including family, friends and others, scream or curse at you: never service: No Exam Narrative: Exam Narrative: Constitutional: Well-developed, well-nourished, no acute distress. HEENT: Normocephalic, atraumatic. Neck: Normal range of motion. Nontender. Supple. Heart: Regular. No murmurs. Normal rate. Intact distal pulses. Lungs: Clear to auscultation. No chest discomfort. No wheezes, rhonchi, or rales. Abdomen: Normal bowel sounds. Nontender. No rebound tenderness. Genitalia: Deferred. Back: No midline tenderness. Normal range of motion. Extremities: Normal range of motion. No injury. Skin: Intact. No rash. Warm. No erythema or pallor. Neurologic: No altered sensation. No weakness. Alert and oriented. Psychiatric: No suicidality. No anxiety or depression. No insomnia. Nursing notes and vitals signs are reviewed. Const: Vital Signs, click to edit/add: Vital Signs - 24 hr 02/11/25 16:26 Temperature 98.1 F Pulse Rate [Pulse Oximeter] 63 Respiratory Rate 16 Blood Pressure [Le ft Upper Arm] 215/102 H Pulse Oximetry 98 Oxygen Delivery Me thod Room Air Course Vital Signs Vital signs: Initial Vital Signs Temperature 98.1 F 02/11/25 16:26 Temperature Source Temporal Artery Scan 02/11/25 16:26 Pulse Rate 63 02/11/25 16:26 Respiratory Rate 16 02/11/25 16:26 Blood Pressure 215/102 H 02/11/25 16:26 Blood Pressure Mean 139 H 02/11/25 16:26 Blood Pressure Position Sitting 02/11/25 16:26 Pulse Oximetry 98 02/11/25 16:26 Oxygen Delivery Method Room Air 02/11/25 16:26 Vital Signs Temperature 98.1 F 02/11/25 16:26 Pulse Rate 63 02/11/25 16:26 Respiratory Rate 16 02/11/25 16:26 Blood Pressure 215/102 H 02/11/25 16:26 Pulse Oximetry 98 02/11/25 16:26 Oxygen Delivery Method Room Air 02/11/25 16:26 Temperature 98.1 F 02/11/25 16:26 Pulse Rate 63 02/11/25 16:26 Respiratory Rate 16 02/11/25 16:26 Blood Pressure 215/102 H 02/11/25 16:26 Pulse Oximetry 98 02/11/25 16:26 Oxygen Delivery Method Room Air 02/11/25 16:26 Medical Decision Making MDM Narrative Medical decision making narrative: This patient took certain medicines this morning but she is not certain as to which ones they were. She has not had anything to eat or drink or taken any other medicines since then yet states that she feels normal. I did review all of her medications and see that none of them would be of concern if she had taken extra dose. Her blood pressure is elevated and she does take a few medicines that are antihypertensive. These include losartan, metoprolol, and terazosin. She may be having some rebound effect from missing 1 or more of these medicines. I did review all of her medicines with her and recommended resuming her normal evening medicines. Discharge Plan Discharge Clinical Impression: Feared condition not demonstrated Patient Disposition: Home, Self-Care Additional Instructions: Resume medications as currently prescribed. Follow up with MD return if worsening symptoms happen. Prescriptions: No Action nifedipine 30 mg tablet extended release 24hr 30 mg PO DAILY sertraline 50 mg tablet 50 mg PO QAM cholecalciferol (vitamin D3) 125 mcg (5,000 unit) tablet 5,000 unit PO 2XW Rx Instructions: TAKES ON SAT and SUN montelukast 10 mg tablet 10 mg PO HS fluorometholone 0.1 % drops,suspension 1 drp ophthalmic (eye) TID PRN triamcinolone acetonide 0.1 % ointment 1 applic topical BID PRN meclizine 25 mg tablet 25 mg PO TID PRN terazosin 1 mg capsule 1 mg PO HS omeprazole 20 mg capsule,delayed release(DR/EC) 20 mg PO DAILY losartan 100 mg tablet 100 mg PO HS warfarin 1 mg tablet 2 mg PO DAILY hydroxyzine HCl 25 mg tablet 25 mg PO Q6H PRN loratadine [Allerclear] 10 mg tablet 10 mg PO HS acetaminophen 500 mg capsule 500 - 1,000 mg PO Q6H MDD 4000mg per day PRN (Reason: pain) Qty: 100 0RF metoprolol tartrate 75 mg tablet 75 mg PO BID carbamazepine 100 mg capsule, ER multiphase 12 hr 100 mg PO BID Qty: 60 2RF diphenoxylate-atropine [Lomotil] 2.5-0.025 mg tablet 1 tab PO DAILY PRN (Reason: diarrhea) Qty: 5 0RF Follow Up/Referrals: Pretty Cantu MD [Primary Care Provider] - Stand Alone Forms: [facility] Info Instructions
--- OUTSIDE RECORDS SUMMARY | 2025-02-11 17:38 | XMS_ITS | Clinical Summary ---
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 It has not been cleared or approved by the Food and Drug Administration. p-rrn559 0.40 [H ] pg/mL 01 Reference Range: 0.00-0.18 Clinical cutoff value was established using samples from a patient cohort characterized with amyloid PET data. A p-vuz709 value of >0.18 is a reported surrogate marker for beta amyloid pathology, and can be used to facilitate biological identification of Alzheimer's disease (1). p-cgj836 has also been used in clinical trials to monitor patients on anti-amyloid therapy (2,3). Test performed by Zoomy chemiluminescent enzyme immunoassay (CLEIA). Values obtained with different methods cannot be used interchangeably. The validated limit of quantification is 0.06 pg/mL. Assay detection limit is 0.03 pg/mL. Footnotes Comment 01 1. Vladimir Harris, et al. Diagnostic Accuracy of a Plasma Phosphorylated Tau 217 Immunoassay for Alzheimer Disease Pathology. [facility]ALIA neurology (2023). 2. Vladimir Harris, et al. Differential roles of A42/40, p-pkp533 and p-kqa661 for Alzheimer's trial selection and disease monitoring. Nature medicine 28.12 (2021): 4672-6639. 3. Mickey JEAN, Maia M, [place], et al. Association of [place] Treatment With Exploratory Plasma Biomarkers in Early Symptomatic Alzheimer Disease: A Secondary Analysis of the TRAILBLAZER-ALZ Randomized Clinical Trial. [facility] Neurol. 2021;79(12):9146-8328. Blood STRUCTURE OF RIGHT UPPER LIMB / Unknown Venipuncture / Unknown 02/04/2025 2:21 PM CDT 02/04/2025 2:22 PM CDT Narrative [facility] - 02/10/2025 6:07 PM CDT Performed At: [address] [facility] [address] [place] [id number] Dioni Dow MD Ph:[phone] Performed At: 02 [facility] [address] [place], [place] [id number] Kylah Mabry MD Ph:[phone] Tunde Mckenzie MD LAB - BLOOD ORDERABLES Final R esult [facility] [address] [place] [address], [place] [phone] * Apolipoprotein E Genotyping, Alzheimer Disease Risk [...] in the APOE gene at codons 130 ([id number]) and 176 ([id number]). The e3 allele (Cysteine at 130 and [...] developed and its performance characteristics determined by [facility]. It has not been cleared or approved by the US Food and Drug Administration. This test was performed in a CLIA certified laboratory and is intended for clinical purposes. Counseling and informed consent are recommended for genetic testing. Consent forms are available online. Performed By: [facility] [address] [place] [address] [place] Technician: Sd Garcia MD, PhD CLIA Number: [id number] Blood STRUCTURE OF RIGHT UPPER LIMB / Unknown Venipuncture / Unknown 02/04/2025 2:21 PM CDT 02/04/2025 2:22 PM CDT us Tunde Mckenzie MD LAB - BLOOD ORDERABLES Final R esult [facility] [address] [place] [phone] [phone] * [facility]; [id number]; Phosphorylated Tau 217 (pTau-217), Plasma (Laboratory Miscellaneous Order) (02/04/2025 2:21 PM CDT) Only the most recent of3 resultswithin the time period is included. Specimen Status Specimen received. Reordered and sent to performing laboratory. Report to follow upon completion. [facility] 02/04/2025 3:09 PM CDT LABORATORY Performing Laboratory [facility] 02/04/2025 3:09 PM CDT LABORATORY Test Name Phosphorylated Tau 217 (pTau-217), Plasma [facility] 02/04/2025 3:09 PM CDT LABORATORY Test Code [id number] [facility] 02/04/2025 3:09 PM CDT LABORATORY Blood STRUCTURE OF RIGHT UPPER LIMB / Unknown Venipuncture / Unknown 02/04/2025 2:21 PM CDT 02/04/2025 2:22 PM CDT Tunde Mckenzie MD LAB - BLOOD ORDERABLES Final R esult LABORATORY [facility] [address] [facility] (1st floor, no room number) [place] [address], [place] * THSCM; Thyroid Function [place], Serum [place] Miscellaneous Test (02/04/2025 2:21 PM CDT) [facility] Result SEE NOTE 02/06/2025 1:30 PM CDT [facility] Comment: Test Result Flag Unit RefValue Thyroid Function [place], S TSH, Sensitive, S 1.4 mIU/L 0.3-4.2 Test Performed by: [facility] - [address] [address] Risk Consultant: Sweetie Meneses Ph.D.; CLIA# [id number] Blood STRUCTURE OF RIGHT UPPER LIMB / Unknown Venipuncture / Unknown 02/04/2025 2:21 PM CDT 02/04/2025 2:22 PM CDT us Tunde Mckenzie MD LAB - BLOOD ORDERABLES Final R esult [facility] [address] [place] [id number] [phone] * Folate (02/04/2025 2:21 PM CDT) Folic Acid 15.3 4.6 - 34.8 ng/mL 02/04/2025 11:17 PM CDT U LABORATORY Blood STRUCTURE OF RIGHT UPPER LIMB / Unknown Venipuncture / Unknown 02/04/2025 2:21 PM CDT 02/04/2025 2:22 PM CDT us Tunde Mckenzie MD LAB - BLOOD ORDERABLES Final R esult U LABORATORY [facility] [place] [facility] [address] [facility], [address] * Vitamin B12 (02/04/2025 2:21 PM CDT) Vitamin B12 449 232 - 1,245 pg/mL 02/05/2025 3:43 PM CDT U LABORATORY Blood STRUCTURE OF RIGHT UPPER LIMB / Unknown Venipuncture / Unknown 02/04/2025 2:21 PM CDT 02/04/2025 2:22 PM CDT us Tunde Mckenzie MD LAB - BLOOD ORDERABLES Final R esult [facility] LABORATORY [facility] [place] [facility] [address] [facility], [address] from Last 3 Months Insurance BCBS [facility]1983 MEDICARE [facility]LY [facility], [facility]1983 MEDICARE Care Teams Room Service Manager Relationship Specialty Start Date End Date Bert Ramirez [address] [place], [place] [phone] PCP - General 02/04/25
--- OUTSIDE RECORDS SUMMARY | 2025-02-11 17:38 | XMS_ITS | Encounter Summary ---
Author Organization [facility] Address [address] [place] [address] Care Team Providers Care Roll Hauler Name Role Phone Pretty Cantu MD Primary Care Prov ider Encounter Details Date Type Department Care Team (Late st Contact Info) Description 02/11/2025 Order-Scan [facility] Neurology [address] [place] [phone] Reyna Stringer PA-C [address] [place] [address] [place] [address] Social History Tobacco Use Types Packs/Day Years Used Date Smoking Tobacco: Never Smokeless Tobacco: Never Alcohol Use Standard Drinks/Week Comments Not Currently 0 (1 standard drink = 0.6 oz pur e alcohol) Comments Unknown Sex and Gender Information Value Date Recorded Sex Assigned at Female 10/02/2024 8:35 PM PROCESS DESIGNER Legal Sex Female 11:32 AM PROCESS DESIGNER Gender Identity Female 10/02/2024 8:35 PM PROCESS DESIGNER Sexual Orientation Straight 10/02/2024 8: 35 PM PROCESS DESIGNER documented as of this encounter Plan of [...] on filedocumented in this encounter Care Teams Roll Hauler Relationship Specialty Start Date End Date Pretty Cantu MD [address] [place] [address] PCP - General Family Medicine 10/01/24 documented as of this encounter
--- OUTSIDE RECORDS SUMMARY | 2025-02-11 17:38 | XMS_ITS | Referral Summary ---
Author Organization [facility] Address [address] [place] [address] Care Team Providers Care Welt Beater Name Role Phone Pretty Cantu MD Primary Care Prov ider Encounters Date Type Department Care Team Description 02/11/2025 Order-Scan [address] [place] [phone] Reyna Stringer PA-C 02/09/2025 Order-Scan [address] [place] [phone] Tunde Mckenzie MD 02/05/2025 Order-Scan [address] [place] [phone] Tunde Mckenzie MD 02/04/2025 1:30 PM CDT Office Visit [address] [place] [phone] Tunde Mckenzie MD 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, psychotic disturbance, mood disturbance, or anxiety (HCC) (Primary Dx); 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 01/06/2025 3:15 PM LEGAL SPECIALIST Office Visit [address] [place] [phone] Tunde Mckenzie MD Mild early onset Alzheimer's [...] Sex Assigned at Female 10/02/2024 8:35 PM LEGAL SPECIALIST Legal Sex Female 11:32 AM LEGAL SPECIALIST Gender Identity Female 10/02/2024 8:35 PM LEGAL SPECIALIST Sexual Orientation Straight 10/02/2024 8: 35 PM LEGAL SPECIALIST Last Filed Vital Signs Vital Sign Reading Time Taken Comments Blood Pressure - - Pulse - - Temperature - - Respiratory Rate 14 10/02/2024 12:20 PM LEGAL SPECIALIST Oxygen Saturation - - Inhaled Oxygen Concentration - - Weight 49.9 kg (110 lb) 01/06/2025 3:05 PM LEGAL SPECIALIST Height 154.9 cm (5' 1) 01/06/2025 3:05 PM LEGAL SPECIALIST Body Mass Index 20.78 01/06/2025 3:05 PM LEGAL SPECIALIST Plan of Treatment Not on file Procedures [...] nal Result from Last 3 Months Insurance [facility] [place] Care Teams Welt Beater Relationship Specialty Start Date End Date Pretty Cantu MD [address] [place] [address] PCP - General Family Medicine 10/01/24
--- OUTSIDE RECORDS SUMMARY | 2025-02-11 17:38 | XMS_ITS | Encounter Summary ---
Author Organization [facility] Address [address] [place] [address] Care Team Providers Care Rv Mechanic Name Role Phone Pretty Cantu MD Primary Care Prov ider Encounter Details Date Type Department Care Team (Late st Contact Info) Description 02/09/2025 Order-Scan [facility] Neurology [address] [place] [phone] Tunde Mckenzie MD [address] [place] [address] [place] [address] [phone] Social History Tobacco Use Types Packs/Day Years Used Date Smoking Tobacco: Never Smokeless Tobacco: Never Alcohol Use Standard Drinks/Week Comments Not Currently 0 (1 standard drink = 0.6 oz pur e alcohol) Comments Unknown Sex and Gender Information Value Date Recorded Sex Assigned at Female 10/02/2024 8:35 PM SCRIPT COORDINATOR Legal Sex Female 11:32 AM SCRIPT COORDINATOR Gender Identity Female 10/02/2024 8:35 PM SCRIPT COORDINATOR Sexual Orientation Straight 10/02/2024 8: 35 PM SCRIPT COORDINATOR documented as of this encounter Plan of [...] on filedocumented in this encounter Care Teams Rv Mechanic Relationship Specialty Start Date End Date Pretty Cantu MD [address] [place] [address] PCP - General Family Medicine 10/01/24 documented as of this encounter
--- OUTSIDE RECORDS SUMMARY | 2025-02-11 17:38 | XMS_ITS | Encounter Summary ---
Author Organization [facility] Address [address] [place] [address] [place] [address] Care Team Providers Care Referral Nurse Name Role Phone Pretty Cantu MD Primary Care Prov ider Encounter Details Date Type Department Care Team (Late st Contact Info) Description 02/05/2025 Order-Scan [facility] Neurology [address] [place] [phone] Tunde Mckenzie MD [address] [place] [address] [place] [phone] Social History Tobacco Use Types Packs/Day Years Used Date Smoking Tobacco: Never Smokeless Tobacco: Never Alcohol Use Standard Drinks/Week Comments Not Currently 0 (1 standard drink = 0.6 oz pur e alcohol) Comments Unknown Sex and Gender Information Value Date Recorded Sex Assigned at Female 10/02/2024 8:35 PM INSTRUCTIONAL DESIGN TECHNOLOGIST Legal Sex Female 11:32 AM INSTRUCTIONAL DESIGN TECHNOLOGIST Gender Identity Female 10/02/2024 8:35 PM INSTRUCTIONAL DESIGN TECHNOLOGIST Sexual Orientation Straight 10/02/2024 8: 35 PM INSTRUCTIONAL DESIGN TECHNOLOGIST documented as of this encounter Plan of [...] on filedocumented in this encounter Care Teams Referral Nurse Relationship Specialty Start Date End Date Pretty Cantu MD [address] [place] [address] PCP - General Family Medicine 10/01/24 documented as of this encounter
--- OUTSIDE RECORDS SUMMARY | 2025-02-11 17:38 | XMS_ITS | Clinical Summary ---
Author Organization [facility] Address [address] [place] [address] [place] [address] Care Team Providers Care Motor Patrol Operator Name Role Phone Pretty Cantu MD [...] Type Department Care Team Description 02/11/2025 Order-Scan [address] [place] [phone] Reyna Stringer PA-C 02/09/2025 Order-Scan [address] [place] [phone] Tunde Mckenzie MD 02/05/2025 Order-Scan [address] [place] [phone] Tunde Mckenzie MD 02/04/2025 1:30 PM CDT Office Visit [address] [place] [phone] Tunde Mckenzie MD 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, psychotic disturbance, mood disturbance, or anxiety (HCC) (Primary Dx); 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 01/06/2025 3:15 PM EXHAUST AND MUFFLER FITTER Office Visit [address] [place] [phone] Tunde Mckenzie MD Mild early onset Alzheimer's [...] Sex Assigned at Female 10/02/2024 8:35 PM EXHAUST AND MUFFLER FITTER Legal Sex Female 11:32 AM EXHAUST AND MUFFLER FITTER Gender Identity Female 10/02/2024 8:35 PM EXHAUST AND MUFFLER FITTER Sexual Orientation Straight 10/02/2024 8: 35 PM EXHAUST AND MUFFLER FITTER Last Filed Vital Signs Vital Sign Reading Time Taken Comments Blood Pressure - - Pulse - - Temperature - - Respiratory Rate 14 10/02/2024 12:20 PM EXHAUST AND MUFFLER FITTER Oxygen Saturation - - Inhaled Oxygen Concentration - - Weight 49.9 kg (110 lb) 01/06/2025 3:05 PM EXHAUST AND MUFFLER FITTER Height 154.9 cm (5' 1) 01/06/2025 3:05 PM EXHAUST AND MUFFLER FITTER Body Mass Index 20.78 01/06/2025 3:05 PM EXHAUST AND MUFFLER FITTER Plan of Treatment Health Maintenance Due Date [...] nal Result from Last 3 Months Insurance [facility] [place] BL[facility] Care Teams Motor Patrol Operator Relationship Specialty Start Date End Date Pretty Cantu MD [address] [place] [address] PCP - General Family Medicine 10/01/24
--- OUTSIDE RECORDS SUMMARY | 2025-02-11 17:39 | XMS_ITS | Encounter Summary ---
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 Procedures [facility] PROCEDURE APPOINTMENT Tunde Mckenzie MD [address] [facility] [address] [place] [address] Phone: tel: fax: Referral ID Status Reason Start Date Expiration Date Visits Re quested Visits Authorized [id number] Open 01/06/2025 1 1 EMIC TUTOR * Radiology Services (Routine) - Authorized Specialty Diagnoses / Procedures Referred By Contcole t Referred To Contact Imaging Outside Facility Diagnoses 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 [place] [address] [phone] Tunde Mckenzie MD [address] [place] [address] [place] [address] Mild early onset Alzheimer's dementia without [...] Sex Assigned at Female 10/02/2024 8:35 PM ACADEMIC TUTOR Legal Sex Female 11:32 AM ACADEMIC TUTOR Gender Identity Female 10/02/2024 8:35 PM ACADEMIC TUTOR Sexual Orientation Straight 10/02/2024 8: 35 PM ACADEMIC TUTOR documented as of this encounter Last Filed Vital Signs Vital Sign Reading Time Taken Comments Blood Pressure - - Pulse - - Temperature - - Respiratory Rate - - Oxygen Saturation - - Inhaled Oxygen Concentration - - Weight 49.9 kg (110 lb) 01/06/2025 3:05 PM ACADEMIC TUTOR Height 154.9 cm (5' 1) 01/06/2025 3:05 PM ACADEMIC TUTOR Body Mass Index 20.78 01/06/2025 3:05 PM ACADEMIC TUTOR documented in this encounter Patient Instructions * Patient Instructions* Tunde Mckenzie MD - 01/06/2025 3:15 PM ACADEMIC TUTOR 1. Labs when possible. 2. PET scan [...] to get help in your area. [employer] Phone: website: https://eldercare.LibriLoop.gov/ The [employer] helps families find resources in their community, such as home care, adult day care, and nursing homes. The [employer] is a service of the Administration on Aging. Contact them to learn about services in your area. For Home Safety Tips, Go to website: https://www.yusef.nih.gov/health/safety/fuqfdfqvaz-nvaszvtblo-higj-safety-tips EMIC TUTOR EMIC TUTOR documented in this encounter Progress Notes * [...] questions or concerns. Tunde Mckenzie MD Neurologist, [facility] 3:50 PM 01/06/2025 This note [...] Dementia Cognitive Assessment Done Slums: FAQ: 16. EMIC TUTOR documented in this encounter Plan of Treatment [...] face documented in this encounter Care Teams Statement Clerks Supervisor Relationship Specialty Start Date End Date Pretty Cantu MD [address] [place] [address] PCP - General Family Medicine 10/01/24 documented as of this encounter
--- OUTSIDE RECORDS SUMMARY | 2025-02-11 17:39 | XMS_ITS | Encounter Summary ---
Author Organization [facility] Address [address] [place] [address] Care Team Providers Care Manager Fast Food Name Role Phone [facility], Bert Kruse Primary Care Provider Encounter Details Date Type Department Care Team (Latest Contact Info) Description 02/04/2025 Travel Social History Tobacco Use Types Packs/Day Years Used Date Smoking Tobacco: Never Assessed Comments No Sex and Gender Information Value Date Recorded Sex Assigned at Not on file Legal Sex Female 4:28 AM GUM MACHINE FILLER Gender Identity Not on file Sexual Orientation Not on file documented as of this encounter Plan of Treatment Not on file documented as of this encounter Visit Diagnoses Not on filedocumented in this encounter Care Teams Manager Fast Food Relationship Specialty Start Date End Date [facility], Bert Kruse [address] [facility] [place] [address] PCP - General 02/04/25 documented as of this encounter
--- OUTSIDE RECORDS SUMMARY | 2025-02-11 17:39 | XMS_ITS | Encounter Summary ---
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) Social History Tobacco Use Types Packs/Day Years Used Date Smoking Tobacco: Never Assessed Comments No Sex and Gender Information Value Date Recorded Sex Assigned at Not on file Legal Sex Female 4:28 AM BELT BRANDER Gender Identity Not on file Sexual Orientation [...] another medical condition without behavioral disturbance (H) GATTMAN MISCELLANEOUS TEST Routine 02/04/2025 2:21 PM CDT [...] this encounter Results * THSCM; Thyroid Function [place], Serum [facility] Miscellaneous Test (02/04/2025 2:21 PM CDT) [facility] Result SEE NOTE 02/06/2025 1:30 PM CDT [facility] Comment: Test Result Flag Unit RefValue Thyroid Function [place], S TSH, Sensitive, S 1.4 mIU/L 0.3-4.2 Test Performed by: [facility] - [facility] [address] [facility], [place] [address] Roentgenology Teacher: Sweetie Meneses Ph.D.; CLIA# [id number] Blood STRUCTURE OF RIGHT UPPER LIMB / Unknown Venipuncture / Unknown 02/04/2025 2:21 PM CDT 02/04/2025 2:22 PM CDT Tunde Mckenzie MD LAB - BLOOD ORDERABLES Final R esult [facility] [address] [place] [address], [facility] [phone] * [facility] Miscellaneous Testing (02/04/2025 2:21 PM CDT) Miscellaneous Test Result COMMENT 02/10/2025 6:07 PM CDT [facility] Comment: Test Ordered: [id number] Test(s) [id number] was developed and its performance characteristics determined by [facility]. It has not been cleared or approved by the Food and Drug Administration. p-tvp605 0.40 [H ] pg/mL 01 Reference Range: 0.00-0.18 Clinical cutoff value was established using samples from a patient cohort characterized with amyloid PET data. A p-lyz472 value of >0.18 is a reported surrogate marker for beta amyloid pathology, and can be used to facilitate biological identification of Alzheimer's disease (1). p-odr586 has also been used in clinical trials to monitor patients on anti-amyloid therapy (2,3). Test performed by iSTAR chemiluminescent enzyme immunoassay (CLEIA). Values obtained with different methods cannot be used interchangeably. The validated limit of quantification is 0.06 pg/mL. Assay detection limit is 0.03 pg/mL. Footnotes Comment 01 1. Vladimir Harris et al. Diagnostic Accuracy of a Plasma Phosphorylated Tau 217 Immunoassay for Alzheimer Disease Pathology. [facility] neurology (2023). 2. Vladimir Harris et al. Differential roles of A42/40, p-mlc637 and p-slq051 for Alzheimer's trial selection and disease monitoring. Nature medicine 28.12 (2021): 6222-5522. 3. Mickey JEAN, Maia M, Nik[place] SC, et al. Association of Donanemab Treatment With Exploratory Plasma Biomarkers in Early Symptomatic Alzheimer Disease: A Secondary Analysis of the TRAILBLAZER-ALZ Randomized Clinical Trial. [facility] Neurol. 2021;79(12):4005-2398. Blood STRUCTURE OF RIGHT UPPER LIMB / Unknown Venipuncture / Unknown 02/04/2025 2:21 PM CDT 02/04/2025 2:22 PM CDT Narrative [facility] - 02/10/2025 6:07 PM CDT Performed At: 01 [facility] [address] [place] [address], [place] [id number] Dioni Dow MD Ph:[phone] Performed At: [address] [facility] [id number] Kylah Mabry MD Ph:[phone] Tunde Mckenzie MD LAB - BLOOD ORDERABLES Final R esult [facility] [address] [phone] * [facility]; [id number]; Phosphorylated Tau 217 (pTau-217), Plasma (Laboratory Miscellaneous Order) (02/04/2025 2:21 PM CDT) Specimen Status Specimen received. Reordered and sent to performing laboratory. Report to follow upon completion. [facility] 02/04/2025 3:09 PM CDT [facility] Performing Laboratory [facility] 02/04/2025 3:09 PM CDT [facility] Test Name Phosphorylated Tau 217 (pTau-217), Plasma [facility] 02/04/2025 3:09 PM CDT [facility] Test Code [id number] [facility] 02/04/2025 3:09 PM CDT [facility] Blood STRUCTURE OF RIGHT UPPER LIMB / Unknown Venipuncture / Unknown 02/04/2025 2:21 PM CDT 02/04/2025 2:22 PM CDT Tunde Mckenzie MD LAB - BLOOD ORDERABLES Final R esult LABORATORY [facility] [address] Lab (1st floor, no room number) [place] [address] * [facility]; THSCM; Thyroid Function [place], Serum (Laboratory Miscellaneous Order) (02/04/2025 2:21 PM CDT) Specimen Status Specimen received. Reordered and sent to performing laboratory. Report to follow upon completion. [facility] 02/04/2025 8:10 PM CDT [facility] Performing Laboratory [facility] 02/04/2025 8:10 PM CDT [facility] Test Name Thyroid Function [place], Serum [facility] 02/04/2025 8:10 PM CDT [facility] Test Code THSCM [facility] 02/04/2025 8:10 PM CDT [facility] Blood STRUCTURE OF RIGHT UPPER LIMB / Unknown Venipuncture / Unknown 02/04/2025 2:21 PM CDT 02/04/2025 2:22 PM CDT Tunde Mckenzie MD LAB - BLOOD ORDERABLES Final R esult [facility] [address] Lab (1st floor, no room number) [place] [phone], [facility] * [facility]; [id number]; ATN Profile (Laboratory Miscellaneous Order) (02/04/2025 2:21 PM CDT) Specimen Status Specimen received. Reordered and sent to performing laboratory. Report to follow upon completion. [facility] 02/04/2025 2:55 PM CDT [facility] Performing Laboratory [facility] 02/04/2025 2:55 PM CDT [facility] Test Name ATN Profile [facility] 02/04/2025 2:55 PM CDT [facility] Test Code [id number] [facility] 02/04/2025 2:55 PM CDT [facility] Blood STRUCTURE OF RIGHT UPPER LIMB / Unknown Venipuncture / Unknown 02/04/2025 2:21 PM CDT 02/04/2025 2:22 PM CDT Tunde Mckenzie MD LAB - BLOOD ORDERABLES Final R esult [facility] [address] Lab (1st floor, no room number) [place] [address], [facility] * Apolipoprotein E Genotyping, Alzheimer Disease [...] in the APOE gene at codons 130 ([id number]) and 176 ([id number]). The e3 allele (Cysteine at 130 and [...] developed and its performance characteristics determined by [facility]. It has not been cleared or approved by the [place] Food and Drug Administration. This test was performed in a CLIA certified laboratory and is intended for clinical purposes. Counseling and informed consent are recommended for genetic testing. Consent forms are available online. Performed By: [facility] [address] [place] [address] Wedding Planning Internship: Sd Garcia MD, PhD CLIA Number: [id number] Blood STRUCTURE OF RIGHT UPPER LIMB / Unknown Venipuncture / Unknown 02/04/2025 2:21 PM CDT 02/04/2025 2:22 PM CDT us Tunde Mckenzie MD LAB - BLOOD ORDERABLES Final R esult [facility] [address] [place] [id number], [facility] [phone] * Folate (02/04/2025 2:21 PM CDT) Folic Acid 15.3 4.6 - 34.8 ng/mL 02/04/2025 11:17 PM CDT [facility] Blood STRUCTURE OF RIGHT UPPER LIMB / Unknown Venipuncture / Unknown 02/04/2025 2:21 PM CDT 02/04/2025 2:22 PM CDT us Tunde Mckenzie MD LAB - BLOOD ORDERABLES Final R esult [facility] Lab [address] [facility], [address] [phone] * Vitamin B12 (02/04/2025 2:21 PM CDT) Vitamin B12 449 232 - 1,245 pg/mL 02/05/2025 3:43 PM CDT [facility] Blood STRUCTURE OF RIGHT UPPER LIMB / Unknown Venipuncture / Unknown 02/04/2025 2:21 PM CDT 02/04/2025 2:22 PM CDT us Tunde Mckenzie MD LAB - BLOOD ORDERABLES Final R esult LABORATORY [facility] [address] [place] [address], [address] [phone] documented in this encounter Visit Diagnoses Diagnosis Alzheimer's disease with early onset (CODE) (H)- Primary 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
--- OUTSIDE RECORDS SUMMARY | 2025-02-11 17:39 | XMS_ITS | Encounter Summary ---
Author Organization 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, psychotic disturbance, mood disturbance, or anxiety (HCC) Procedures [facility] NEUROPSYCH APPOINTMENT Tunde Mckenzie MD [address] [place] [address] [place], [place] [id number] Phone: tel: fax: Referral ID Status Reason Start Date Expiration Date Visits Re quested Visits Authorized [id number] Open 02/04/2025 1 1 Reason for Visit * Reason Comments Follow up * Other (Routine) - Authorized Specialty Diagnoses / Procedures Referred By Aram solorio Referred To Contact Diagnoses 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 [place] [phone] Tunde Mckenzie MD [address] [facility] [address] [place] [address] Mild early onset Alzheimer's dementia without behavioral [...] Sex Assigned at Female 10/02/2024 8:35 PM STEAM LOCOMOTIVE FIRER/FIREMAN Legal Sex Female 11:32 AM STEAM LOCOMOTIVE FIRER/FIREMAN Gender Identity Female 10/02/2024 8:35 PM STEAM LOCOMOTIVE FIRER/FIREMAN Sexual Orientation Straight 10/02/2024 8: 35 PM STEAM LOCOMOTIVE FIRER/FIREMAN documented as of this encounter Progress Notes [...] function. A new test is scheduled at [facility] next week for her PET scan. A follow-up will be planned after the results are reviewed. Blood work was discussed, and it seems some tests may not have been drawn at the last visit. The patient will check with Camryn to confirm whether these tests were completed or need to be repeated.If blood work was missed, it may be drawn at [facility]. B. Hemifacial spasm: Patient doing really well [...] or concerns. Tunde Mckenzie MD Neurologist, [facility] 1:49 PM 02/04/2025 This note [...] injection: October 2024. Botox was supplied by [facility] neurology. Lot number: See above. Expiration date: [...] 10 units divided in 2 sites. Left sole skiver: 5 units divided in 1 sites. Right orbicularis oculi: 10 units divided in 2 sites. right Nasalis: 5 units divided in 2 sites. Right sole skiver: 5 units divided in 1 sites. Total [...] (Comment) documented in this encounter Care Teams Assistant Professor Of Philosophy Relationship Specialty Start Date End Date Pretty Cantu MD [address] [place] [address] PCP - General Family Medicine 10/01/24 documented as of this encounter
--- OUTSIDE RECORDS SUMMARY | 2025-02-11 17:39 | XMS_ITS | Clinical Summary ---
Author Organization [employer] [facility] Address [address] [place] [id number] Care Team Providers Care Channel Lip Stiffener Insoles Name Role Phone Pretty Hernandez MD Primary Care Prov ider [facility] Care, [place] Unavailable Allergies Active Allergy Reactions Criticality Noted [...] Department Care Team Description 02/11/2025 Nurse Triage [facility] [address] [place] [address] VotelZackary MD Confusion (Mixed up her meds this am. Not sure what she took. Go to /ER now. Hx of alzheimer's) 02/06/2025 11:30 AM CDT Home Care Visit [facility] [address] [place] [address] Maribell Muller RN SN - OASIS DISCHARGE 02/06/2025 Refill [facility] [address] [place] [address] Pretty Hernandez MD Refill Request (Warfarin) 02/06/2025 Telephone [facility] [address] [place] [address] Pretty Hernandez MD POLST 02/03/2025 12:30 PM CDT Home Care Visit [facility] [address] [place] [address] Maribell Muller, RN SN - HOME VISIT 02/03/2025 10:45 AM CDT Home Care Visit [facility] [address] [place] [phone] Vlad Frank, AUTO BODY ESTIMATOR AUTO BODY ESTIMATOR - DISCIPLINE DISCHARGE 02/03/2025 8:30 AM CDT Home Care Visit [facility] [address] [place] [phone] Elaine Aguirre OT OT - DISCIPLINE DISCHARGE 02/03/2025 Anticoagulation (warfarin) [facility] [address] [place] [address] 1, [facility] Anticoagulation (Home care) 02/03/2025 Telephone [facility] [address] [place] [phone] Vlad Frank, AUTO BODY ESTIMATOR Home Care (Request for Outpatient Speech Therapy Orders ) 01/27/2025 10:30 AM AMMUNITION ASSEMBLY I LABORER Home Care Visit [facility] [address] [place] [phone] Mecca Salomon COTA OT - HOME VISIT 01/27/2025 9:30 AM AMMUNITION ASSEMBLY I LABORER Home Care Visit [facility] [address] [place] [phone] Vlad Frank, YASMIN AUTO BODY ESTIMATOR - HOME VISIT 01/27/2025 8:30 AM AMMUNITION ASSEMBLY I LABORER Home Care Visit [facility] [address] [place] [phone] Maribell Muller, RN SN - HOME VISIT 01/27/2025 Telephone [facility] [address] [place] [address] Vlad Frank, AUTO BODY ESTIMATOR Home Care (Request for outpatient speech therapy orders ) 01/27/2025 Anticoagulation (warfarin) [facility] [address] [place] [address] 1, [facility] Anticoagulation (Home care) 01/23/2025 8:30 AM AMMUNITION ASSEMBLY I LABORER Home Care Visit [place] [phone] [place] [phone] Maribell Muller RN SN - HOME VISIT 01/23/2025 Anticoagulation (warfarin) [facility] [address] [place] [address] 1, [facility] Anticoagulation ([facility]HC) 01/21/2025 1:45 PM AMMUNITION ASSEMBLY I LABORER Home Care Visit [address] [phone] Vlad Frank, AUTO BODY ESTIMATOR AUTO BODY ESTIMATOR - INITIAL ASSESSMENT 01/20/2025 12:00 PM AMMUNITION ASSEMBLY I LABORER Home Care Visit [address] [address] Mecca Salomon COTA OT - HOME VISIT 01/20/2025 11:00 AM AMMUNITION ASSEMBLY I LABORER Home Care Visit [address] [address] Natasha Jimenez LPN BUSINESS DEVELOPMENT PROFESSIONAL - HOME VISIT 01/20/2025 Anticoagulation (warfarin) [facility] [address] [place] [address] 1, [facility] Anticoagulation (Home care) 01/16/2025 9:00 AM AMMUNITION ASSEMBLY I LABORER Home Care Visit [address] [phone] Natasha Jimenez LPN BUSINESS DEVELOPMENT PROFESSIONAL - HOME VISIT 01/16/2025 Anticoagulation (warfarin) [facility] [address] [place] [address] 1, [facility] Anticoagulation 01/13/2025 10:00 AM AMMUNITION ASSEMBLY I LABORER Home Care Visit [address] [phone] Kamala Rogers LISW AUTOMOBILE DEALER - INITIAL ASSESSMENT 01/13/2025 9:00 AM AMMUNITION ASSEMBLY I LABORER Home Care Visit [address] [place] [address] Maribell Muller, LISA SN - HOME VISIT 01/13/2025 Anticoagulation (warfarin) [facility] [address] [place] [address] 1, [facility] Anticoagulation ([facility]HC) 01/13/2025 Orders Only [facility] [address] [place] [address] Pretty Hernandez MD Lab 01/13/2025 Telephone [facility] [address] [place] [address] Maribell Muller RN Home Care 01/13/2025 Orders Only [facility] [address] [place] [address] Pretty Hernandez MD Lab (Home care) 01/12/2025 10:30 AM AMMUNITION ASSEMBLY I LABORER Home Care Visit [facility] [address] [place] [address] Elaine Aguirre, OT OT - REASSESSMENT 01/12/2025 Telephone [facility] [address] [place] [address] Pretty Hernandez MD FYI 01/10/2025 Telephone [facility] [address] [place] [address] Pretty Hernandez MD Anticoagulation (INR result) 01/09/2025 11:00 AM AMMUNITION ASSEMBLY I LABORER Home Care Visit [facility] [address] [place] [phone] Nora Acevedo, PT PT - DISCIPLINE DISCHARGE 01/08/2025 10:00 AM AMMUNITION ASSEMBLY I LABORER Home Care Visit [facility] [address] [place] [phone] Maribell Muller, LISA SN - HOME VISIT 01/08/2025 Orders Only [facility] [address] [place] [address] Heather Abad NP <No scans attached> 01/08/2025 Telephone [facility] [address] [place] [address] Pretty Hernandez MD Anticoagulation (Dosing approval for INR >5) 01/08/2025 Anticoagulation (warfarin) [facility] [address] [place] [address] 1, [facility] Anticoagulation 01/08/2025 Orders Only [facility] [address] [place] [address] Pretty Hernandez MD Lab 01/08/2025 Orders Only [facility] [address] [place] [address] Pretty Hernandez MD Lab (Home care) 01/06/2025 9:00 AM AMMUNITION ASSEMBLY I LABORER Home Care Visit [facility] [address] [place] [address] Mecca Salomon COTA OT - HOME VISIT 01/05/[address] [place] [address] David Baig MD Results (Zio monitor) 01/02/2025 12:15 PM AMMUNITION ASSEMBLY I LABORER Home Care Visit [facility] [address] [place] [address] Nroa Acevedo, PT PT - HOME VISIT 01/01/2025 9:00 AM AMMUNITION ASSEMBLY I LABORER Home Care Visit [facility] [address] [place] [address] Natasha Jimenez LPN BUSINESS DEVELOPMENT PROFESSIONAL - HOME VISIT 01/01/2025 Anticoagulation (warfarin) [facility] [address] [place] [address] 1, [facility] Anticoagulation (Chart update.) 12/31/2024 3:15 PM AMMUNITION ASSEMBLY I LABORER Office Visit [facility] 1400 [place] [address] Krystina Ambrosio, DO Follow Up (chronic follow up; still concerned with neuralgia. ) 12/31/2024 Telephone [facility] [address] [facility] [address] Krystina Ambrosio, DO Questions 12/31/2024 Travel 12/30/2024 4:00 PM AMMUNITION ASSEMBLY I LABORER Home Care Visit [facility] [address] [place] [address] Mecca Saolmon COTA OT - HOME VISIT 12/26/2024 11:00 AM AMMUNITION ASSEMBLY I LABORER Office Visit [address] [place] [address] David Baig MD Follow Up (Gen Card F/u. Pt seen by Dr. Serrato 01/2024. 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 EKG 10/22.//Pt is wearing ZIO currently. //Pt denies sx. Pt wants to discuss meds. //) 12/26/2024 Travel 12/24/2024 9:30 AM AMMUNITION ASSEMBLY I LABORER Home Care Visit [facility] [address] [place] [phone] Maribell Muller RN SN - HOME VISIT 12/24/2024 8:30 AM AMMUNITION ASSEMBLY I LABORER Home Care Visit [facility] [address] [place] [phone] Cyndy Galarza PTA PT - HOME VISIT 12/24/2024 Telephone [facility] [address] [place] [address] Maribell Muller, certified income tax preparer 12/23/2024 4:00 PM AMMUNITION ASSEMBLY I LABORER Home Care Visit [facility] [address] [place] [phone] Mecca Salomon KIMBROUGH OT - HOME VISIT 12/18/2024 Home Care Visit [facility] [address] [facility] [place] [address] Maribell Muller, LISA CARE COORDINATION 12/17/2024 2:45 PM AMMUNITION ASSEMBLY I LABORER Home Care Visit [facility] [address] [facility] [place] [address] Maribell Muller, LISA SN - HOME VISIT 12/17/2024 1:30 PM AMMUNITION ASSEMBLY I LABORER Home Care Visit [facility] [address] [facility] [place] [address] Joe Hugo, PT PT - HOME VISIT 12/17/2024 11:30 AM AMMUNITION ASSEMBLY I LABORER Home Care Visit [facility] [address] [facility] [place] [address] Elaine Aguirre, OT OT - INITIAL ASSESSMENT 12/17/2024 Telephone [facility] [address] [address] Maribell Muller RN Home Care 12/17/2024 Travel 12/16/2024 1:15 PM AMMUNITION ASSEMBLY I LABORER Home Care Visit [facility] [address] [facility] [place] [address] Joe Hugo, PT PT - INITIAL ASSESSMENT 12/15/2024 Home Care Visit [facility] [address] [facility] [place] [address] Elaine Aguirre, OT CARE COORDINATION 12/13/2024 Anticoagulation (warfarin) [facility] [address] [place] [address] 1, [facility] Anticoagulation (Outside lab) 12/13/2024 Telephone [facility] [address] [place] [address] Pretty Hernandez MD Anticoagulation 12/12/2024 Orders Only [facility] Scanner 1 scan: (1-Ord) [place] INR, 12/12/2024 12/10/2024 4:30 PM AMMUNITION ASSEMBLY I LABORER Nurse/Clinic Staff Only [facility] [address] [place] [address] Education (Help with ZIO patch/) 12/10/2024 Travel 12/10/2024 Telephone [facility] [address] [facility] [place] [address] Nicole Morris, certified income tax preparer (Need ongoing orders for home health) 12/10/2024 Plan of Care Documentation [facility] [address] [place] [address] 12/09/2024 12:00 PM AMMUNITION ASSEMBLY I LABORER Home Care Visit [facility] [address] [place] [phone] Nicole Morris, LISA SN - OASIS START OF CARE 12/09/2024 Home Care Visit [facility] [address] [place] [address] Marjorie Salinas, RN CARE COORDINATION 12/08/2024 Home Care Visit [facility] [address] [place] [phone] Marjorie Salinas, RN CARE COORDINATION 12/05/2024 Home Care Visit [facility] [address] [place] [phone] Marjorie Salinas, RN CARE COORDINATION 12/01/2024 9:00 AM AMMUNITION ASSEMBLY I LABORER Ancillary Procedure [facility] [address] [place] [address] 12/01/2024 Travel 11/29/2024 Anticoagulation (warfarin) [facility] [address] [place] [address] 1, [facility] Anticoagulation (Outside lab) 11/29/2024 Telephone [facility] [address] [place] [address] Pretty Hernandez MD Anticoagulation (Outside lab result) 11/28/2024 1:25 PM AMMUNITION ASSEMBLY I LABORER Office Visit [facility] [address] [place] [address] Pretty Hernandez MD Follow Up (recheck from 10/22/24) 11/28/2024 8:15 AM AMMUNITION ASSEMBLY I LABORER Office Visit [address] [place] [address] 11/28/2024 Orders Only [facility] Scanner 1 scan: (1-Ord) [facility], INR, 11/28/2024 11/28/2024 Travel 11/15/2024 Anticoagulation (warfarin) [facility] [address] [place] [address], [facility] Anticoagulation (Outside lab ) 11/15/2024 Telephone [facility] [address] [place] [address] Pretty Hernandez MD Anticoagulation (Lab results ) 11/14/2024 Orders Only [facility] Scanner 1 scan: (1-Ord) [place], PT INR, 11/14/2024 11/14/2024 Orders Only [facility] Scanner 1 scan: (1-Ord) [place], INR, 11/14/2024 from Last 3 Months Immunizations [...] on file Legal Sex Female 5:25 AM AMMUNITION ASSEMBLY I LABORER Gender Identity Not on file Sexual Orientation [...] (113 lb 6.4 oz) 01/12/2025 11:26 AM AMMUNITION ASSEMBLY I LABORER Height 154.9 cm (5' 1) 12/26/2024 10:54 AM AMMUNITION ASSEMBLY I LABORER Body Mass Index 21.43 12/26/2024 10:54 AM AMMUNITION ASSEMBLY I LABORER Plan of Treatment Health Maintenance Due Date [...] PM CDT INR,POCT Routine 01/27/2025 9:04 AM AMMUNITION ASSEMBLY I LABORER INR,POCT Routine 01/23/2025 INR,POCT Routine 01/20/2025 INR,POCT Routine 01/16/2025 PROTIME-INR Routine 01/13/2025 10:02 AM AMMUNITION ASSEMBLY I LABORER Anticoagulation monitoring, INR range 2-3 PROTIME-INR Routine 01/08/2025 10:40 AM AMMUNITION ASSEMBLY I LABORER Anticoagulation monitoring, INR range 2-3 SCAN-LABORATORY REPORT 12/12/2024 12:00 AM AMMUNITION ASSEMBLY I LABORER INR,POCT Routine 12/12/2024 ECHO TTE COMPLETE WO CONTRAST Routine 12/01/2024 9:58 AM AMMUNITION ASSEMBLY I LABORER Chronic atrial fibrillation (HC) Anticoagulation monitoring, INR range 2-3 Atrial flutter, unspecified type (HC) HTN (hypertension) EXTENDED HOLTER Routine 12/01/2024 Chronic atrial fibrillation (HC) Anticoagulation monitoring, INR range 2-3 Atrial flutter, unspecified type (HC) HTN (hypertension) SCAN-LABORATORY REPORT 11/28/2024 12:00 AM AMMUNITION ASSEMBLY I LABORER INR,POCT Routine 11/28/2024 INR,POCT Routine 11/14/2024 2:32 PM AMMUNITION ASSEMBLY I LABORER SCAN-LABORATORY REPORT 11/14/2024 12:00 AM AMMUNITION ASSEMBLY I LABORER SCAN-LABORATORY REPORT 11/14/2024 12:00 AM AMMUNITION ASSEMBLY I LABORER from Last 3 Months Results * (ABNORMAL) INR,POCT (02/03/2025 12:42 PM CDT) Only the most recent of8 resultswithin the time period is included. INR 1.9(EXTERNA L) 0.0 - 1.2 [facility] Blood BLOOD SPECIMEN / Unknown 02/03/2025 12:42 PM CDT us Pretty Hernandez MD LABORATORY Fi nal Result [facility] [employer] [address] [address] * (ABNORMAL) PROTIME-INR (01/13/2025 10:02 AM AMMUNITION ASSEMBLY I LABORER) Only the most recent of2 resultswithin the time period is included. INR 3.0(H) <1.3 01/13/2025 1:55 PM AMMUNITION ASSEMBLY I LABORER [facility] PROTIME 35.1(H) 10.6 - 12.4 sec 01/13/2025 1:55 PM AMMUNITION ASSEMBLY I LABORER [facility] Blood BLOOD SPECIMEN / Unknown Butterfly / Unknown 01/13/2025 10:02 AM AMMUNITION ASSEMBLY I LABORER 01/13/2025 1:48 PM AMMUNITION ASSEMBLY I LABORER Narrative [facility] - 01/13/2025 1:55 PM AMMUNITION ASSEMBLY I LABORER Therapeutic Range 2.0-3.0 for most anticoagulated patients [...] Pretty Hernandez MD HEMATOLOGY Fi nal Result [facility] [address] [facility] [place] [address] * SCAN-LABORATORY REPORT (12/12/2024 12:00 AM AMMUNITION ASSEMBLY I LABORER) Only the most recent of4 resultswithin the time period is included. us Scanner OTHER Final Result * ECHO TTE COMPLETE WO CONTRAST (12/01/2024 9:58 AM AMMUNITION ASSEMBLY I LABORER) AORTIC VALVE MEAN PG 4 mmHg EJECTION FRACTION 61 % PEAK TR VELOCITY 3.0 m/s LVEDD 3.8 cm EJECTION FRACTION 60 - 65% Anatomical Region Laterality Modality Ultrasound 12/01/2024 9:17 AM AMMUNITION ASSEMBLY I LABORER Narrative 12/01/2024 10:47 AM AMMUNITION ASSEMBLY I LABORER ECHOCARDIOGRAM YUNIOR Mirta LR : 1940 84 years Study Date: 12/01/2024 9:17:17 AM Gender: F BP: 139/63 mmHg Height: 152.00 cm BSA: 1.47 m Weight: 52.00 kg Tech: [facility] Referring MD: PRETTY HERNANDEZ Site: [facility] Reading Location: Mobile OP [...] . This study was interpreted by an [facility] accredited facility. Final Procedure Note Joe Kearney MD - 12/01/2024 ECHOCARDIOGRAM YUNIOR LR : 1940 84 years Study Date: 12/01/2024 9:17:17 AM Gender: F BP: 139/63 mmHg Height: 152.00 cm BSA: 1.47 m Weight: 52.00 kg Tech: [facility] Referring MD: PRETTY HERNANDEZ Site: [facility] Reading Location: Mobile OP [...] . This study was interpreted by an [facility] accredited facility. Final us Pretty Hernandez MD ECHO ORD Fi nal Result * ZIO PATCH XT - weekly to monthly symptoms. (12/01/2024) 12/01/2024 Narrative Adam Alex MD - 01/05/2025 12:00 AM AMMUNITION ASSEMBLY I LABORER Agree with Findings. Please see scan document for full report. Signed By Adam Alex MD Procedure Note Adam Alex MD - 01/05/2025 Agree with Findings. Please see scan document for full report. Signed By Adam Alex MD us Pretty Hernandez MD CARDIAC SERVICES [address] Final Result from Last 3 Months Insurance [place] BL[place] MR PB ONLY MEDICARE PPS [place] BLUE HB ONLY Advance Directives Documents on File Type Date Recorded Patient Rotary Adjuster Expl anation POLST 01/13/2025 * DNR (Latest Code Status on File) Date Activated Date Inactivated Comments 02/06/2025 1:08 PM POLST availabl e in residence reviewed and validated to match our conversation today Care Teams Channel Lip Stiffener Insoles Relationship Specialty Start Date End Date Pretty Hernandez MD [address] [place] [address] PCP - General Family Practice 09/10/24 [facility] [address] [facility] [id number] 12/04/24
== END 2025-02-11 17:44 | disposition home or self-care (01) ==
PROVIDERS: Emergency Provider Emergency Medicine Emergency Medical Services; PCP Student in an Organized Health Care Education/Training Program
DX: Z71.1 Person with feared health complaint in whom no diagnosis is made (principal)
CPT/HCPCS: 99282; 99284